=== PATIENT | female | born 1945 | race Caucasian/White ===

== ENCOUNTER → 2017-10-23 | Outpatient (CLI) | END | disposition home or self-care (01) ==

== ENCOUNTER 2018-09-11 10:17 | Inpatient (IN) | payer BC ==
[2018-09-09 18:04] VITALS: BMI 34.0
[~2018-09-11] VITALS: Ht 162.6 cm; Wt 89.6 kg
[2018-09-11] VITALS (29 sets, daily range): BP systolic 79–131; BP diastolic 28–77; PULSE 82–111; RESP 12–22; Ht 162.6 cm; Wt 89.6 kg
[~2018-09-11 10:17] MED LIST: ALBUMIN HUMAN 25% 100 ML INJ ONE; ALBUMIN HUMAN 5% 250 ML INJ ONE; CEFAZOLIN 1 GM INJ ONE; GLYCOPYRROLATE 0.4 MG INJ ONE; LIDOCAINE 2% (SDV) 5 ML INJ ONE; NEOSTIGMINE 10 MG INJ ONE; PROPOFOL 200 MG INJ ONE; ROCURONIUM 50 MG INJ ONE; SUCCINYLCHOLINE CHLORIDE 100 MG/5 ML SYG IV ONE
[2018-09-11] MEDS ORDERED: MIDAZOLAM 1 MG/ML 2 ML INJ ONE (10:38)
[2018-09-11] MEDS ORDERED: FENTAnyl 50 MCG/ML VIAL ONE ×2 (10:38→14:40)
[2018-09-11] MEDS ORDERED: LEVO50TA7 PO (10:42)
[2018-09-11] MEDS ORDERED: METOCLOPRAMIDE 10 MG INJ ONE (10:43)
--- NOTE | 2018-09-11 11:42 | PREAC ---
Date/Time of Note Date/Time of Note DATE: 09/11/18 TIME: 11:41 Anesthesia Eval and Record Evaluation Time Pre-Procedure Interview DATE: 09/11/18 TIME: 11:41 Age 73 Sex female NPO: 8 hrs Preoperative diagnosis ovarian CA Planned procedure abdominal hysterectomy Past Medical History Past Medical History: Includes Endo: Hypothyroid GI: Obesity Surgery & Anesthesia Issues No known issue Meds Anticoagulation: No Beta Sumi within 24 hr: No Reason Beta Sumi not given: Pt. not on B-Sumi Reported Medications Levothyroxine Sodium* (Levothyroxine Sodium*) 50 Mcg Tablet, 50 MCG PO BEFORE BREAKFAST, #30 TAB 09/11/18 Meds reviewed: Yes Allergies Coded Allergies: lidocaine (Verified Allergy, Intermediate, THROAT ITCHY, 09/11/18) PER PT & RELATIVE Allergies Reviewed: Yes Labs/Studies Labs Reviewed: Reviewed by anesthesiologist Result Diagram: 09/09/18 [id number] test: Negative Studies: ECG, CXR Pre-procedure Exam Airway: Adequate mouth opening, Adequate thyromental dist Mallampati: Mallampati III Teeth: Normal Lung: Normal Heart: Normal ASA Physical Status ASA physical status: 3 Emergency: None Planned Anesthetic General/MAC: ETT, A Line, CVP Planned Pain Management Epidural, Parenteral pain med, Other neuraxial med, Local by surgeon Pre-operative Attestations Prior to commencing anesthesia and surgery, the patient was re-evaluated, there was verification of: *The patient's identity *The results of appropriate recent lab work and preoperative vital signs *The above evaluation not changing prior to induction *Anesthetic plan, risk benefits, alternative and complications discussed with patient/family; questions answered; patient/family understands, accepts and wishes to proceed. KELSEY MALONEY MD Sep 11, 2018 11:42
--- NOTE | 2018-09-11 13:17 | HPN ---
Date/Time of Note Date/Time of Note DATE: 09/11/18 TIME: 13:17 Interval H&P Admission Note Pt. seen H&P reviewed: No system changes VIRGINIA COTE MD Sep 11, 2018 13:17
[2018-09-11] MEDS ORDERED: hydrALAzine 20 MG INJ ONE (14:55)
[2018-09-11] MEDS ORDERED: ROPIVACAINE 0.5 % 30 ML VIAL ONE (16:16)
[2018-09-11] MEDS ORDERED: morphine SULFATE/PF (10 MG/10 ML) INJ ONE (16:16)
[2018-09-11] MEDS ORDERED: PHENYLephrine (100 MCG/ML) 5ML SYG ONE ×2 (16:27→17:09)
[2018-09-11] MEDS ORDERED: ONDANSETRON 4 MG INJ IV PRN ×2 (17:00→17:30)
[2018-09-11] MEDS ORDERED: FENTAnyl 50 MCG/ML VIAL IV PRN ×2 (17:00)
[2018-09-11] MEDS ORDERED: ALBUMIN HUMAN 5% 250 ML IV PRN (17:00)
[2018-09-11] MEDS ORDERED: LABETALOL HCL 20MG INJ IV PRN (17:00)
[2018-09-11] MEDS ORDERED: IPRATROPIUM (NEB) 0.5 MG/2.5 ML AMP HHN PRN (17:00)
[2018-09-11] MEDS ORDERED: HYDROmorphONE 0.5 MG/0.5 ML SYG IV PRN ×2 (17:00)
[2018-09-11] MEDS ORDERED: MEPERIDINE 25 MG INJ IV PRN (17:00)
[2018-09-11] MEDS ORDERED: NALOXONE (0.4 MG/ML) INJ IV PRN (17:00)
[2018-09-11] MEDS ORDERED: MIDAZOLAM 1 MG/ML 2 ML INJ IV PRN (17:00)
[2018-09-11] MEDS ORDERED: ZOLPIDEM 5 MG TAB PO PRN (17:00)
[2018-09-11] MEDS ORDERED: hydrALAzine 20 MG INJ IV PRN (17:00)
[2018-09-11] MEDS ORDERED: DIPHENHYDRAMINE 50 MG INJ IV PRN ×3 (17:00→17:30)
[2018-09-11] MEDS ORDERED: HYDROmorphONE 1 MG/5 ML IV SYRINGE IV PRN ×3 (17:00)
[2018-09-11] MEDS ORDERED: LEVALBUTEROL (NEB) 1.25 MG/0.5 ML AMP HHN PRN (17:00)
[2018-09-11] MEDS ORDERED: LORAZEPAM 2 MG INJ IV PRN (17:00)
[2018-09-11] MEDS ORDERED: PHENYLephrine 10 MG INJ ONE (17:24)
[2018-09-11] MEDS ORDERED: HYDROCODONE/APAP (5/325) TAB PO PRN (17:30)
[2018-09-11] MEDS ORDERED: ACETAMINOPHEN 325 MG TAB PO PRN (17:30)
--- NOTE | 2018-09-11 17:42 | OPR ---
Date/Time of Note Date/Time of Note DATE: 09/11/18 TIME: 17:37 Operative Report Procedure Date: Sep 11, 2018 Preoperative Diagnosis Ovarian cancer, s/p neoadjuvant chemotherapy Postoperative Diagnosis Same, extensive disease Operation/Procedure Performed Exploratory laparotomy, omentectomy, right salpingo-oophrectomy, sub-optimal tumor debulking Surgeon see signature line Radio Frequency Technician ERAN Campos Anesthesia Type: general, epidural Estimated Blood Loss: other Transfusion none Specimen omentum, ovary, falciform ligament tumor, gastrocolic ligament. Grafts/Implants none Tubes/Drains [place] x 1 Complications none Pt Condition Post Procedure: stable Disposition: other Procedure Description Ascite, large desmoplastic omental cake at 25x10 cm. Tumor in gastorcolic ligament and falciform ligament. Confluent thick diaphram tumor. Large tumor burden in bladder peritoneum and recto-vaginal septum. Due to location, desmoplstic tumor, complete debulking is not feasible at this time. VIRGINIA COTE MD Sep 11, 2018 17:42
[2018-09-11] MEDS ORDERED: HYDROmorphONE 1 MG/5 ML IV SYRINGE IV ONE (18:06)
[2018-09-11] MEDS: ROPIVACAINE 0.2% 100 ML INJ EPI SCH (18:37)
--- NOTE | 2018-09-11 18:55 | OPR ---
DATE OF OPERATION: 09/11/2018 PREOPERATIVE DIAGNOSES: 1. Extensive ovarian cancer. 2. Status post neoadjuvant chemotherapy. POSTOPERATIVE DIAGNOSES: 1. Extensive ovarian cancer. 2. Status post neoadjuvant chemotherapy. 3. Extensive disease. PROCEDURES PERFORMED: 1. Exploratory laparotomy. 2. Omentectomy. 3. Right salpingo-oophorectomy. 4. Suboptimal tumor debulking. SURGEON: Ami Romero MD BAKESHOP CLEANER: ERAN Campos ANESTHESIA: General endotracheal and epidural. ESTIMATED BLOOD LOSS: About 400 mL. INTRAOPERATIVE FINDINGS: The patient has ascites approximately 3 liters. There is a large desmoplastic omental cake about 20 x 10 cm, stuck to the anterior abdominal wall as well as compressing on the transverse colon. There was extensive disease in the diaphragm, quite confluent and thick. There is a large tumor in the falciform ligament compressing the stomach. She has a prior history of cholecystectomy. There is some tumor plaque in the lesser sac behind the stomach. There was also tumor plaque in the spleen surface. Small bowel serosa is fairly spared. Ascending, transverse, descending colon are fairly unremarkable. Pelvic area has large bulky tumor in the bladder peritoneum, also large bulky tumor in the rectovaginal septum. There was tumor in the right ovary. Left ovary was difficult to identify. Due to extent of disease and the desmoplastic nature of the tumor, the debulking outcome was suboptimal. There is still residual disease in the pelvic. There is confluent disease in the diaphragm. There is disease on the splenic surface and also in the lesser sac behind the stomach. PREOPERATIVE INDICATION: This is a 73-year-old white female who was diagnosed with ovarian cancer in 11/2017. Apparently, she has a lot of disease in the abdomen and also pleural effusion. She started treatment with neoadjuvant chemotherapy by Dr. Acosta. Apparently, she finished treatment in 05/22/2018. Pretreatment CA-125 was 718. Posttreatment went down to 57. [employer] oncology got involved after neoadjuvant chemotherapy. She originally was sent to [facility] for surgical evaluation in 06/30/2018. Due to insurance capitation reason to [facility], she was redirected to me. I saw the patient in the office first time about 3 weeks ago. She was recently evaluated by her medical oncologist on 08/15/2018. Her CA-125 is rising and back up to 300. She has another CT scan preoperatively that showed increase in disease with tumor burden. I have discussed with Dr. Acosta personally and to resume neoadjuvant chemotherapy at the sixth cycle is not the best option at this time. The plan is to attempt tumor debulking although due to the timing and the rapid recurrence of disease, debulking may not be optimal. DESCRIPTION OF PROCEDURE: With that in mind, the patient was taken to the OR after adequate bowel prep and also adequate general and epidural anesthesia, she was placed in a lithotomy position, prepped and draped in usual sterile fashion. There is ascites in the abdomen and the omental cake is palpable in the anterior abdominal wall. At this time, vertical incision extends from suprapubic to the umbilicus. Incision was carried down to the level of fascia. Fascia was entered. We initially encountered this thick omental cake which was stuck to the fascia. It was difficult finding the proper surgical plane in the lower anterior abdomen. At this time, I made an incision above the umbilicus and was able to carefully enter the abdominal cavity and find surgical plane around the omental cake laterally. Once good plane was opened, I was able to evacuate the ascites. Approximately 3 liters of ascites were evacuated and this leads to better visualization. Next, I then proceeded to carefully and slowly separate omental cake from anterior abdominal wall and part of tumor involving the posterior sheath and this was resected without difficulty and the rectus muscle was left intact. At this time and once it cleared from the pelvic area, I mobilized all the way up to the upper abdomen. The patient had prior history of open cholecystectomy and the omentum was then from a large bulky falciform ligament tumor. At this time with the omental cake delineated from the abdominal wall, I also assessed the pelvis. Disease distribution was more noticed per above. At this time, it becomes quite clear that due to the desmoplastic nature of the disease and the bulky disease, optimal debulking is not feasible at this time. My goal will be to remove the primary source hopefully, both ovaries and omental cake and bulky disease are to be removed but R0 debulking outcome is not feasible at this time. At this time, I then proceeded to separate the large omental cake from the hepatic flexure and this was without difficulty. As we reached the mid transverse colon, I had slowly teased off the colon from the omental cake and this was able to slowly separate without traumatizing them. Omental cake was completely from the transverse colon to the splenic flexure and I was able to enter the lesser sac. At this time, the entire omental cake was then mobilized all the way to the tail of omentum and this was completely removed and there is ____ block of the thick tumor approximately 25 x 10 cm. This was sent to pathology for evaluation. At this time, I further delineated gastrocolic ligament and this was taken of the greater curvature of the stomach and reflected toward the spleen. The gastrocolic was removed. The patient does have some surface disease in the spleen, but not quite bulky. Upon further inspection of the stomach and the lesser sac, there is actually bulky tumor right behind the stomach. This is about 5 to 6 cm. Also, the patient has a confluent diaphragm tumor on the right side and it is almost like 1 to 2 cm thick involving the entire diaphragm. At this time, there was a large bulky falciform ligament tumor and I proceeded to mobilize it from the anterior abdominal wall then off the stomach and off the attachment to the liver. This was removed carefully without causing vascular injury. This was labeled as falciform ligament tumor. There is no trauma to the stomach and the bulky omental cake was removed. At this time, I then started to pay attention to pelvic area. The patient placed in Trendelenburg position. Bowel was mobilized off of the pelvis. Again, there was bulky disease on the cul-de-sac, bladder peritoneum and also rectosigmoid colon mesentery in the order of 4 to 5 cm and firm and desmoplastic. At this time, I was able to palpate the right ovary trapped in the right ovarian fossa. The left ovary was difficult to identify. At this time, I anchored the round ligament on the right side. The retroperitoneal space on the right was opened to the pericolic gutter. Perirectal space was opened. Avascular space was opened. Right IP ligament was doubly cut and suture ligated. At this time, I mobilized the ovary from the ovarian fossa on the right side and completely mobilized while the uteroovarian was clamped, cut, suture ligated. At this time, right adnexa was and sent to pathology for evaluation. Next, I then proceeded to attempt to remove the left ovary. The left round ligament was anchored in a similar fashion. The retroperitoneal space opened. The IP ligament was doubly cut and suture ligated. We proceeded to isolate the left ovary. Unfortunately, this left ovary was completely confluent with the uterus and the pelvic tumor is difficult to delineate. At this time, I performed a pelvic exam. The patient does have big bulky rectovaginal septum mass pressing down posterior to the uterus. Again due to the desmoplastic nature of the tumor if I were to involve this tumor, the patient may end up with diverting colostomy due to low rectal anastomosis. I do not think under the extent of bulky disease that this is warranted; therefore, resecting the pelvic tumor with hysterectomy is not performed. At this time, I then proceeded to irrigate the abdomen and pelvis and there is no active bleeding. All the pedicles are hemostatic. Next, instrument and lap counts were correct. I placed a [place] drain into pelvic area prior to right lower quadrant anchoring to the skin. Next, I then proceeded to close the fascia using looped PDS in a mass having closure fashion. Subcutaneous tissue was irrigated. Skin was approximated using stainless steel staple. At the end of the case, urine was clear and estimated blood loss was about 400 mL. The patient was then extubated and transferred to recovery room in stable condition. Dictated By: AMI GUERRA/ROSARIO Conf#: [id number] DID#: [id number] CC: JESSIE AGUILA MD;*EndCC* MTDD
[2018-09-11] MEDS: D5-NS + KCL 20 MEQ 1,000 ML IV SCH (20:07)
[2018-09-11] MEDS: FAMOTIDINE 20 MG INJ IV SCH (20:46)
[2018-09-12] VITALS (23 sets, daily range): BP systolic 101–134; BP diastolic 50–73; PULSE 90–111; RESP 12–23
[2018-09-12] MEDS: ROPIVACAINE 0.2% 100 ML INJ EPI SCH (03:17)
[2018-09-12] MEDS: D5-NS + KCL 20 MEQ 1,000 ML IV SCH ×3 (03:17→20:02)
--- NOTE | 2018-09-12 08:05 | PAC ---
Date/Time of Note Date/Time of Note DATE: 09/12/18 TIME: 08:05 Post-Anesthesia Notes Post-Anesthesia Note Last documented vital signs Vital Signs Date Temp Pulse Resp B/P (MAP) Pulse Ox O2 O2 Flow FiO2 Time Delivery Rate 09/12/18 96 16 110/61 98 Nasal 2.0 06:00 (77) Cannula 09/12/18 98.4 04:00 Activity: WNL Respiratory function: WNL Cardiovascular function: WNL Mental status: Baseline Pain reasonably controlled: Yes Hydration appropriate: Yes Nausea/Vomiting absent: Yes KELSEY MALONEY MD Sep 12, 2018 08:05
[2018-09-12] MEDS: FAMOTIDINE 20 MG INJ IV SCH ×2 (08:27→21:08)
[2018-09-12] MEDS: HYDROCODONE/APAP (10/325) TAB PO PRN ×2 (14:46→21:35)
[2018-09-12] MEDS ORDERED: HYDROmorphONE 0.2 MG/ML PCA IV SCH (18:30)
--- NOTE | 2018-09-12 18:37 | PN ---
Date/Time of Note Date/Time of Note DATE: 09/12/18 TIME: 18:35 Assessment/Plan VTE Prophylaxis Risk score (from Ns)>0 risk: 15 SCD applied (from [facility] [place]): Yes SCD contraindicated: other Pharmacological prophylaxis: LMWH Lines/Catheters IV [facility]ter Type (from [facility]): Central Line Central line insert date: Sep 11, 2018 Central line still needed: Yes Urinary Cath still in place: Yes Reason Cath still needed: other (indicate) Assessment/Plan Hospital Course POD #1 Assessment/Plan Doppler of RLE, PICC line insertion, will remove central line tomorrow. NG d/c. transfer to floor Result Diagram: 09/12/18 0340 09/12/18 0340 Results 24hrs Laboratory Tests Test 09/12/18 03:40 09/12/18 04:55 White Blood Count 12.0 #H Red Blood Count 2.83 L Hemoglobin 9.4 L Hematocrit 28.4 L Mean Corpuscular Volume 100.4 Mean Corpuscular Hemoglobin 33.2 H Mean Corpuscular Hemoglobin Concent 33.1 Red Cell Distribution Width 11.3 L Platelet Count 300 Mean Platelet Volume 9.9 Immature Granulocytes % 0.800 H Neutrophils % 85.4 H Lymphocytes % 6.8 L Monocytes % 6.8 Eosinophils % 0.0 Basophils % 0.2 Nucleated Red Blood Cells % 0.0 Immature Granulocytes # 0.090 H Neutrophils # 10.3 H Lymphocytes # 0.8 Monocytes # 0.8 Eosinophils # 0.0 Basophils # 0.0 Nucleated Red Blood Cells # 0.0 Sodium Level 141 Potassium Level 4.8 Chloride Level 110 Carbon Dioxide Level 23 Anion Gap 8 Blood Urea Nitrogen 14 Creatinine 0.80 Est Glomerular Filtrat Rate mL/min Glucose Level 213 Calcium Level 9.3 Total Bilirubin 0.3 Direct Bilirubin 0.00 Indirect Bilirubin 0.3 Aspartate Amino Transf (AST/SGOT) 19 Alanine Aminotransferase (ALT/SGPT) 21 Alkaline Phosphatase 30 L Total Protein 5.2 L Albumin 3.1 L Globulin 2.10 Albumin/Globulin Ratio 1.47 Lab Scanned Report REFERENCE LAB Subjective 24 Hr Interval Summary Free Text/Dictation c/o pain epidural out Exam/Review of Systems Exam Vitals Vital Signs Date Temp Pulse Resp B/P (MAP) Pulse Ox O2 O2 Flow FiO2 Time Delivery Rate 09/12/18 109 23 133/61 95 17:00 (85) 09/12/18 98.6 Room Air 16:00 09/12/18 2.0 12:00 Intake and Output 09/11/18 09/11/18 09/12/18 1515:00 23:00 07:00 IntakeIntake Total 4575 ml 1080 ml OutputOutput Total 1485 ml 555 ml BalanceBalance 3090 ml 525 ml Gastrointestinal: soft Results Results 24hrs Laboratory Tests Test 09/12/18 03:40 09/12/18 04:55 White Blood Count 12.0 #H Red Blood Count 2.83 L Hemoglobin 9.4 L Hematocrit 28.4 L Mean Corpuscular Volume 100.4 Mean Corpuscular Hemoglobin 33.2 H Mean Corpuscular Hemoglobin Concent 33.1 Red Cell Distribution Width 11.3 L Platelet Count 300 Mean Platelet Volume 9.9 Immature Granulocytes % 0.800 H Neutrophils % 85.4 H Lymphocytes % 6.8 L Monocytes % 6.8 Eosinophils % 0.0 Basophils % 0.2 Nucleated Red Blood Cells % 0.0 Immature Granulocytes # 0.090 H Neutrophils # 10.3 H Lymphocytes # 0.8 Monocytes # 0.8 Eosinophils # 0.0 Basophils # 0.0 Nucleated Red Blood Cells # 0.0 Sodium Level 141 Potassium Level 4.8 Chloride Level 110 Carbon Dioxide Level 23 Anion Gap 8 Blood Urea Nitrogen 14 Creatinine 0.80 Est Glomerular Filtrat Rate mL/min Glucose Level 213 Calcium Level 9.3 Total Bilirubin 0.3 Direct Bilirubin 0.00 Indirect Bilirubin 0.3 Aspartate Amino Transf (AST/SGOT) 19 Alanine Aminotransferase (ALT/SGPT) 21 Alkaline Phosphatase 30 L Total Protein 5.2 L Albumin 3.1 L Globulin 2.10 Albumin/Globulin Ratio 1.47 Lab Scanned Report REFERENCE LAB Medications Medication Current Medications Acetaminophen/ Hydrocodone Bitart ([place] (5/325)) 1 tab Q6H PRN PO PAIN LEVEL 6-10 Last administered on 09/12/18at 12:25; Admin Dose 1 TAB; Start 09/11/18 at 17:30 Acetaminophen/ Hydrocodone Bitart ([place] (10/325)) 1 tab Q6H PRN PO PAIN Last administered on 09/12/18at 14:46; Admin Dose 1 TAB; Start 09/11/18 at 17:30 Acetaminophen (Tylenol Tab) 650 mg Q6H PRN PO MILD PAIN(1-3)OR ELEVATED TEMP; Start 09/11/18 at 17:30 Diphenhydramine HCl (Benadryl) 25 mg Q6H PRN IV ITCHING; Start 09/11/18 at 17:30 Ondansetron HCl (Zofran Inj) 4 mg Q6H PRN IV NAUSEA AND/OR VOMITING; Start 09/11/18 at 17:30 Famotidine (Pepcid Iv) 10 mg BID IV Last administered on 09/12/18at 08:27; Admin Dose 10 MG; Start 09/11/18 at 21:00 Potassium Chloride/Dextrose/ Sod Cl 1,000 ml @ 125 mls/hr Q8H IV Last administered on 09/12/18at 11:08; Admin Dose 125 MLS/HR; Start 09/11/18 at 17:28 Ropivacaine (Naropin 0.2% 100 ml) 100 ml DAILY EPI Last administered on 09/12/18at 03:17; Admin Dose 100 ML; Start 09/11/18 at 18:00 Hydromorphone HCl (Dilaudid) 0.2 mg Q2H PRN IV .PAIN 1-5; Start 09/11/18 at 17:00 Hydromorphone HCl (Dilaudid) 0.4 mg Q2H PRN IV .PAIN 6-10 Last administered on 09/12/18at 17:07; Admin Dose 0.4 MG; Start 09/11/18 at 17:00 Diphenhydramine HCl (Benadryl) 25 mg Q4H PRN IV .PRURITUS; Start 09/11/18 at 17:00 Ondansetron HCl (Zofran Inj) 4 mg Q6H PRN IV .NAUSEA/VOMITING; Start 09/11/18 at 17:00 Zolpidem Tartrate (Ambien) 5 mg HS MAY REPEAT X 1 PRN PO .INSOMNIA; Start 09/11/18 at 17:00 Naloxone HCl (Narcan) 0.2 mg Q2M PRN IV .RESP RATE; Start 09/11/18 at 17:00 Miscellaneous Information (* Miscellaneous Pharmacy Order) DURAMORPH: 3.5MG EP IDU... GIVEN NEURAXIAL XX ; Start 09/11/18 at 17:00 VIRGINIA COTE MD Sep 12, 2018 18:37
[2018-09-12] MEDS: HYDROmorphONE 0.2 MG/ML PCA IV SCH (20:01)
[2018-09-13 02:30] VITALS: BP 132/66; PULSE 119; RESP 18
[2018-09-13] MEDS: D5-NS + KCL 20 MEQ 1,000 ML IV SCH ×2 (05:44→11:08)
[2018-09-13] MEDS: FAMOTIDINE 20 MG INJ IV SCH ×2 (08:17→20:29)
[2018-09-13 08:27] VITALS: BP 115/67; PULSE 102; RESP 20
--- NOTE | 2018-09-13 10:30 | PN ---
Date/Time of Note Date/Time of Note DATE: 09/13/18 TIME: 10:28 Assessment/Plan VTE Prophylaxis Risk score (from Ns)>0 risk: 18 SCD applied (from Ns): Yes SCD contraindicated: other Pharmacological prophylaxis: LMWH [facility] Central line still needed: Yes Urinary Cath still in place: Yes Reason Cath still needed: other (indicate) Assessment/Plan Hospital Course POD #2 Assessment/Plan PICC line today, d/c central line. RLE doppler to r/o DVT. Consult IM and Med Onc. Result Diagram: 09/13/1844709/13/18447 Results 24hrs Laboratory Tests Test 09/13/18 04:48 White Blood Count 13.2 H Red Blood Count 2.72 L Hemoglobin 9.0 L Hematocrit 26.9 L Mean Corpuscular Volume 98.9 Mean Corpuscular Hemoglobin 33.1 H Mean Corpuscular Hemoglobin Concent 33.5 Red Cell Distribution Width 11.1 L Platelet Count 282 Mean Platelet Volume 9.9 Immature Granulocytes % 1.200 H Neutrophils % 78.2 H Lymphocytes % 12.0 L Monocytes % 7.1 Eosinophils % 1.3 Basophils % 0.2 Nucleated Red Blood Cells % 0.0 Immature Granulocytes # 0.160 H Neutrophils # 10.3 H Lymphocytes # 1.6 Monocytes # 0.9 Eosinophils # 0.2 Basophils # 0.0 Nucleated Red Blood Cells # 0.0 Sodium Level 135 Potassium Level 4.1 Chloride Level 103 Carbon Dioxide Level 25 Anion Gap 7 Blood Urea Nitrogen 10 Creatinine 0.73 Est Glomerular Filtrat Rate mL/min Glucose Level 132 # Calcium Level 8.3 L Subjective 24 Hr Interval Summary Free Text/Dictation Pain better Exam/Review of Systems Exam Vitals Vital Signs Date Temp Pulse Resp B/P (MAP) Pulse Ox O2 O2 Flow FiO2 Time Delivery Rate 09/13/18 98.0 102 20 115/67 95 Nasal 2.0 08:27 (83) Cannula Intake and Output 09/12/18 09/12/18 09/13/18 1515:00 23:00 07:00 IntakeIntake Total 1150 ml 850 ml 645 ml OutputOutput Total 1210 ml 415 ml 1380 ml BalanceBalance -60 ml 435 ml -735 ml Gastrointestinal: soft Results Results 24hrs Laboratory Tests Test 09/13/18 04:48 White Blood Count 13.2 H Red Blood Count 2.72 L Hemoglobin 9.0 L Hematocrit 26.9 L Mean Corpuscular Volume 98.9 Mean Corpuscular Hemoglobin 33.1 H Mean Corpuscular Hemoglobin Concent 33.5 Red Cell Distribution Width 11.1 L Platelet Count 282 Mean Platelet Volume 9.9 Immature Granulocytes % 1.200 H Neutrophils % 78.2 H Lymphocytes % 12.0 L Monocytes % 7.1 Eosinophils % 1.3 Basophils % 0.2 Nucleated Red Blood Cells % 0.0 Immature Granulocytes # 0.160 H Neutrophils # 10.3 H Lymphocytes # 1.6 Monocytes # 0.9 Eosinophils # 0.2 Basophils # 0.0 Nucleated Red Blood Cells # 0.0 Sodium Level 135 Potassium Level 4.1 Chloride Level 103 Carbon Dioxide Level 25 Anion Gap 7 Blood Urea Nitrogen 10 Creatinine 0.73 Est Glomerular Filtrat Rate mL/min Glucose Level 132 # Calcium Level 8.3 L Medications Medication Current Medications Acetaminophen/ Hydrocodone Bitart ([place] (5/325)) 1 tab Q6H PRN PO PAIN LEVEL 6-10 Last administered on 09/12/18at 12:25; Admin Dose 1 TAB; Start 09/11/18 at 17:30 Acetaminophen/ Hydrocodone Bitart ([place] (10/325)) 1 tab Q6H PRN PO PAIN Last administered on 09/12/18at 21:35; Admin Dose 1 TAB; Start 09/11/18 at 17:30 Acetaminophen (Tylenol Tab) 650 mg Q6H PRN PO MILD PAIN(1-3)OR ELEVATED TEMP; Start 09/11/18 at 17:30 Diphenhydramine HCl (Benadryl) 25 mg Q6H PRN IV ITCHING; Start 09/11/18 at 17:30 Ondansetron HCl (Zofran Inj) 4 mg Q6H PRN IV NAUSEA AND/OR VOMITING Last administered on 09/13/18at 08:17; Admin Dose 4 MG; Start 09/11/18 at 17:30 Famotidine (Pepcid Iv) 10 mg BID IV Last administered on 09/13/18 08:17; Admin Dose 10 MG; Start 09/11/18 at 21:00 Potassium Chloride/Dextrose/ Sod Cl 1,000 ml @ 75 mls/hr [id number] IV Last administered on 09/12/18at 20:02; Admin Dose 75 MLS/HR; Start 09/11/18 at 17:28 Ropivacaine (Naropin 0.2% 100 ml) 100 ml DAILY EPI Last administered on 09/12/18 at 03:17; Admin Dose 100 ML; Start 09/11/18 at 18:00 Hydromorphone HCl (Dilaudid) 0.2 mg Q2H PRN IV .PAIN 1-5; Start 09/11/18 at 17:00 Hydromorphone HCl (Dilaudid) 0.4 mg Q2H PRN IV .PAIN 6-10 Last administered on 09/12/18at 17:07; Admin Dose 0.4 MG; Start 09/11/18 at 17:00 Diphenhydramine HCl (Benadryl) 25 mg Q4H PRN IV .PRURITUS; Start 09/11/18 at 17:00 Ondansetron HCl (Zofran Inj) 4 mg Q6H PRN IV .NAUSEA/VOMITING; Start 09/11/18 at 17:00 Zolpidem Tartrate (Ambien) 5 mg HS MAY REPEAT X 1 PRN PO .INSOMNIA; Start 09/11/18 at 17:00 Naloxone HCl (Narcan) 0.2 mg Q2M PRN IV .RESP RATE; Start 09/11/18 at 17:00 Miscellaneous Information (* Miscellaneous Pharmacy Order) DURAMORPH: 3.5MG EPIDU... GIVEN NEURAXIAL XX ; Start 09/11/18 at 17:00 Hydromorphone HCl (Dilaudid [employer] SAL[employer] MANAGER) 0 MG/HR CONTINUOUS RATE 0.... Q4PCA IV Last administered on 09/12/18at 20:01; Admin Dose 0.2 MG; Start 09/12/18 at 20:00 VIRGINIA COTE MD Sep 13, 2018 10:30
[2018-09-13] MEDS: ONDANSETRON 4 MG INJ IV PRN (14:22)
[2018-09-13 14:29] VITALS: BP 139/80; PULSE 104; RESP 18
--- NOTE | 2018-09-13 16:00 | CONS ---
Assessment/Plan Assessment/Plan Assessment/Plan (Daily) 73 yo woman no major PMH presents after ovarian debulking surgery #Postoperative ileus - Patient is at high risk of ileus after intraperitoneal surgery on high doses of opiate analgesics. - Will start stimulant and osmotic oral laxatives. - If no improvement or if she becomes unable to take PO, will advance to [place] enemas and stimulants. #Postoperative pain - Agree with opioid analgesia as ordered by surgery. - Start PT/OT as soon as possible when cleared to ambulate by surgery. #Hypothyroidism - Patient should continue daily thyroid replacement - If unable to tolerate PO, can switch to 25 mg IV daily. #Anemia - Transfuse pRBCs for symptomatic anemia or if Hgb drops to <7. #DVT prophylaxis - In case of prolonged immobility, consider prophylactic enoxaparin 40mg daily when okay from surgical perspective. Patient is at high risk of venous thromboembolism. Thank you for the consult. We will continue to follow. Consultation Date/Type/Reason Admit Date/Time Sep 11, 2018 at 10:17 Date of Consultation: Sep 13, 2018 Type of Consult Internal Medicine Reason for Consultation Postoperative management Requesting Provider: VIRGINIA COTE MD Date/Time of Note DATE: 09/13/18 TIME: 15:46 Hx of Present Illness Ms. Seth is a 73 yo woman with ovarian cancer admitted after abdominal debulking surgery. She was diagnosed with this cancer in November 2017. She follows Dr. Acosta who did neoadjuvant chemotherapy which she completed in May 2018. Unfortunately due to insurance reasons she was unable to get surgery right away. She was admitted September [address] Cote who did exploratory laparotomy, omentectomy, right salpingo-oophorectomy, and tumor debulking. Postoperatively she developed R leg swelling which now has resolved. She did have a venous duplex, the results of which appear to be pending; but the swelling resolved. She has also had ileus with no bowel movement or gas passed since surgery. Yesterday after starting soft diet she developed vomiting. Most recent episode of vomiting was 45 minutes ago, dark brown. 12 point review of systems done; negative except per HPI Past Medical History Hypothyroidism on levothyroxine Osteoarthritis on meloxicam Home Meds Reported Medications Levothyroxine Sodium* (Levothyroxine Sodium*) 50 Mcg Tablet, 50 MCG PO BEFORE BREAKFAST, #30 TAB 09/11/18 Medications Current Medications Acetaminophen/ Hydrocodone Bitart ([place] (5/325)) 1 tab Q6H PRN PO PAIN LEVEL 6-10 Last administered on 09/12/18 12:25; Admin Dose 1 TAB; Start 09/11/18 at 17:30 Acetaminophen/ Hydrocodone Bitart ([place] (10/325)) 1 tab Q6H PRN PO PAIN Last administered on 09/12/18 21:35; Admin Dose 1 TAB; Start 09/11/18 at 17:30 Acetaminophen (Tylenol Tab) 650 mg Q6H PRN PO MILD PAIN(1-3)OR ELEVATED TEMP; Start 09/11/18 at 17:30 Famotidine (Pepcid Iv) 10 mg BID IV Last administered on 09/13/18 08:17; Admin Dose 10 MG; Start 09/11/18 at 21:00 Potassium Chloride/Dextrose/ Sod Cl 1,000 ml @ 75 mls/hr [id number] IV Last adm inistered on 09/13/18at 11:08; Admin Dose 75 MLS/HR; Start 09/11/18 at 17:28 Hydromorphone HCl (Dilaudid) 0.2 mg Q2H PRN IV .PAIN 1-5; Start 09/11/18 at 17:00 Hydromorphone HCl (Dilaudid) 0.4 mg Q2H PRN IV .PAIN 6-10 Last administered on 09/12/18 17:07; Admin Dose 0.4 MG; Start 09/11/18 at 17:00 Diphenhydramine HCl (Benadryl) 25 mg Q4H PRN IV .PRURITUS; Start 09/11/18 at 17:00 Ondansetron HCl (Zofran Inj) 4 mg Q6H PRN IV .NAUSEA/VOMITING Last administered on 09/13/18 14:22; Admin Dose 4 MG; Start 09/11/18 at 17:00 Zolpidem Tartrate (Ambien) 5 mg HS MAY REPEAT X 1 PRN PO .INSOMNIA; Start 09/11/18 at 17:00 Naloxone HCl (Narcan) 0.2 mg Q2M PRN IV .RESP RATE; Start 09/11/18 at 17:00 Miscellaneous Information (* Miscellaneous Pharmacy Order) DURAMORPH: 3.5MG EPIDU... GIVEN NEURAXIAL XX ; Start 09/11/18 at 17:00 Hydromorphone HCl (Dilaudid ENVIRONMENTAL PROTECTION GEOLOGIST) 0 MG/HR CONTINUOUS RATE 0.... Q4PCA IV Last administered on 09/12/18at 20:01; Admin Dose 0.2 MG; Start 09/12/18 at 20:00 Allergies: Coded Allergies: lidocaine (Verified Allergy, Intermediate, THROAT ITCHY, 09/11/18) PER PT & RELATIVE Past Surgical History Cholecystectomy Family History Significant Family History: other (Mother and sister both of unknown cancer. ) Social History Alcohol Use: rarely Smoking Status: Never smoker Drug Use: none Exam/Review of Systems Exam Vitals Vital Signs Date Temp Pulse Resp B/P (MAP) Pulse Ox O2 O2 Flow FiO2 Time Delivery Rate 09/13/18 97.5 104 18 139/80 93 Nasal 14:29 (99) Cannula 09/13/18 2.0 08:27 Intake and Output 09/12/18 09/12/18 09/13/18 1414:59 22:59 06:59 IntakeIntake Total 1150 ml 975 ml 645 ml OutputOutput Total 1270 ml 415 ml 1380 ml BalanceBalance -120 ml 560 ml -735 ml Exam Gen: Obese woman lying in bed, uncomfortable appearing. Eyes: PERRL, no icterus HEENT: Dry mucous membranes, clear oropharynx Neck: R neck IJ line in place, no lymphadenopathy Card: Regular rate and rhythm, no murmurs Pulm: Clear to auscultation bilaterally Abd: Absent bowel sounds. Midline surgical dressing clean/dry/intact. RLQ MARQUEZ drain with scant serosanguineous output. Nontender to light palpation throughout. Ext: R>L knee nodularity and arthritis. Otherwise no edema. Skin: warm, dry, well perfused. Results Result Diagram: 09/13/188 09/13/18447 Results 24hrs Laboratory Tests Test 09/13/18 04:48 White Blood Count 13.2 H Red Blood Count 2.72 L Hemoglobin 9.0 L Hematocrit 26.9 L Mean Corpuscular Volume 98.9 Mean Corpuscular Hemoglobin 33.1 H Mean Corpuscular Hemoglobin Concent 33.5 Red Cell Distribution Width 11.1 L Platelet Count 282 Mean Platelet Volume 9.9 Immature Granulocytes % 1.200 H Neutrophils % 78.2 H Lymphocytes % 12.0 L Monocytes % 7.1 Eosinophils % 1.3 Basophils % 0.2 Nucleated Red Blood Cells % 0.0 Immature Granulocytes # 0.160 H Neutrophils # 10.3 H Lymphocytes # 1.6 Monocytes # 0.9 Eosinophils # 0.2 Basophils # 0.0 Nucleated Red Blood Cells # 0.0 Sodium Level 135 Potassium Level 4.1 Chloride Level 103 Carbon Dioxide Level 25 Anion Gap 7 Blood Urea Nitrogen 10 Creatinine 0.73 Est Glomerular Filtrat Rate mL/min Glucose Level 132 # Calcium Level 8.3 L Medications Medication Current Medications Acetaminophen/ Hydrocodone Bitart ([place] (5/325)) 1 tab Q6H PRN PO PAIN LEVEL 6-10 Last administered on 09/12/18at 12:25; Admin Dose 1 TAB; Start 09/11/18 at 17:30 Acetaminophen/ Hydrocodone Bitart ([place] (10/325)) 1 tab Q6H PRN PO PAIN Last administered on 09/12/18 21:35; Admin Dose 1 TAB; Start 09/11/18 at 17:30 Acetaminophen (Tylenol Tab) 650 mg Q6H PRN PO MILD PAIN(1-3)OR ELEVATED TEMP; Start 09/11/18 at 17:30 Famotidine (Pepcid Iv) 10 mg BID IV Last administered on 09/13/18at 08:17; Admin Dose 10 MG; Start 09/11/18 at 21:00 Potassium Chloride/Dextrose/ Sod Cl 1,000 ml @ 75 mls/hr [id number] IV Last administered on 09/13/18at 11:08; Admin Dose 75 MLS/HR; Start 09/11/18 at 17:28 Hydromorphone HCl (Dilaudid) 0.2 mg Q2H PRN IV .PAIN 1-5; Start 09/11/18 at 17:00 Hydromorphone HCl (Dilaudid) 0.4 mg Q2H PRN IV .PAIN 6-10 Last administered on 09/12/18at 17:07; Admin Dose 0.4 MG; Start 09/11/18 at 17:00 Diphenhydramine HCl (Benadryl) 25 mg Q4H PRN IV .PRURITUS; Start 09/11/18 at 17:00 Ondansetron HCl (Zofran Inj) 4 mg Q6H PRN IV .NAUSEA/VOMITING Last administered on 09/13/18at 14:22; Admin Dose 4 MG; Start 09/11/18 at 17:00 Zolpidem Tartrate (Ambien) 5 mg HS MAY REPEAT X 1 PRN PO .INSOMNIA; Start 09/11/18 at 17:00 Naloxone HCl (Narcan) 0.2 mg Q2M PRN IV .RESP RATE; Start 09/11/18 at 17:00 Miscellaneous Information (* Miscellaneous Pharmacy Order) DURAMORPH: 3.5MG EPIDU... GIVEN NEURAXIAL XX ; Start 09/11/18 at 17:00 Hydromorphone HCl (Dilaudid ENVIRONMENTAL PROTECTION GEOLOGIST) 0 MG/HR CONTINUOUS RATE 0.... Q4PCA IV Last administered on 09/12/18at 20:01; Admin Dose 0.2 MG; Start 09/12/18 at 20:00 LUCINDA PANDYA MD Sep 13, 2018 15:56
[2018-09-13 19:54] VITALS: BP 125/81; PULSE 102; RESP 18
[2018-09-13] MEDS: SENNA TAB PO SCH (20:29)
[2018-09-13] MEDS ORDERED: NA PHOSPHATE/BIPHOS 133 ML ENEMA PR ONE (21:30)
[2018-09-13] MEDS ORDERED: DIPHENHYDRAMINE 50 MG INJ IV PRN (21:30)
[2018-09-13] MEDS ORDERED: NA PHOSPHATE/BIPHOS 133 ML ENEMA PR PRN (22:00)
[2018-09-14] MEDS: HYDROmorphONE 0.2 MG/ML PCA IV SCH (01:19)
[2018-09-14 02:00] VITALS: BP 128/75; PULSE 111; RESP 18; RESP 20
[2018-09-14] MEDS ORDERED: METOCLOPRAMIDE 10 MG INJ IV ONE (02:00)
[2018-09-14] MEDS: D5-NS + KCL 20 MEQ 1,000 ML IV SCH ×3 (03:50→20:22)
[2018-09-14] MEDS ORDERED: LORAZEPAM 2 MG INJ IV ONE (06:30)
[2018-09-14] MEDS: LEVOTHYROXINE 50 MCG TAB PO SCH (06:59)
[2018-09-14 08:01] VITALS: BP 111/76; PULSE 105; RESP 18
[2018-09-14] MEDS: POLYETHYLENE GLYCOL 17 GM PACKET PO SCH (09:00)
[2018-09-14] MEDS: SENNA TAB PO SCH ×2 (09:00→21:00)
[2018-09-14] MEDS ORDERED: MAGNESIUM SULFATE 2 GM/50 ML 50 ML IVPB ONE (09:30)
[2018-09-14] MEDS ORDERED: BISACODYL 10 MG SUPP PR PRN (11:00)
--- NOTE | 2018-09-14 12:20 | PN ---
Date/Time of Note Date/Time of Note DATE: 09/14/18 TIME: 12:18 Assessment/Plan VTE Prophylaxis Risk score (from Nsg)>0 risk: 6 SCD applied (from Nsg): Yes Pharmacological prophylaxis: LMWH Lines/Catheters IV Catheter Type (from Nrs): PICC Line Central line insert date: Sep 18, 2018 Central line still needed: No Urinary Cath still in place: No Assessment/Plan Hospital Course POD #3 Assessment/Plan NG drain lots, KUB ileus, PICC line today. D/C central line. Pain control Result Diagram: 09/14/1844809/14/18448 Results 24hrs Laboratory Tests Test 09/14/18 04:49 White Blood Count 13.3 H Red Blood Count 3.37 #L Hemoglobin 10.9 #L Hematocrit 32.5 #L Mean Corpuscular Volume 96.4 Mean Corpuscular Hemoglobin 32.3 Mean Corpuscular Hemoglobin Concent 33.5 Red Cell Distribution Width 10.9 L Platelet Count 399 # Mean Platelet Volume 10.1 Immature Granulocytes % 1.000 H Neutrophils % 80.6 H Lymphocytes % 10.2 L Monocytes % 7.7 Eosinophils % 0.2 Basophils % 0.3 Nucleated Red Blood Cells % 0.0 Immature Granulocytes # 0.130 H Neutrophils # 10.7 H Lymphocytes # 1.4 Monocytes # 1.0 H Eosinophils # 0.0 Basophils # 0.0 Nucleated Red Blood Cells # 0.0 Sodium Level 138 Potassium Level 3.8 Chloride Level 101 Carbon Dioxide Level 25 Anion Gap 12 Blood Urea Nitrogen 12 Creatinine 0.62 Est Glomerular Filtrat Rate mL/min Glucose Level 156 Calcium Level 8.9 Magnesium Level 1.5 L Total Bilirubin 0.5 Direct Bilirubin 0.00 Indirect Bilirubin 0.5 Aspartate Amino Transf (AST/SGOT) 30 Alanine Aminotransferase (ALT/SGPT) 21 Alkaline Phosphatase 60 Total Protein 5.8 L Albumin 3.0 L Globulin 2.80 Albumin/Globulin Ratio 1.07 Subjective 24 Hr Interval Summary Free Text/Dictation Pain control issues, Exam/Review of Systems Exam Vitals Vital Signs Date Temp Pulse Resp B/P (MAP) Pulse Ox O2 O2 Flow FiO2 Time Delivery Rate 09/14/18 17 09:00 09/14/18 97.3 105 111/76 93 Nasal 08:01 (88) Cannula 09/13/18 2.0 08:27 Intake and Output 09/13/18 09/13/18 09/14/18 1515:00 23:00 07:00 IntakeIntake Total 325 ml 725 ml 550 ml OutputOutput Total 125 ml 375 ml BalanceBalance 200 ml 350 ml 550 ml Gastrointestinal: soft Results Results 24hrs Laboratory Tests Test 09/14/18 04:49 White Blood Count 13.3 H Red Blood Count 3.37 #L Hemoglobin 10.9 #L Hematocrit 32.5 #L Mean Corpuscular Volume 96.4 Mean Corpuscular Hemoglobin 32.3 Mean Corpuscular Hemoglobin Concent 33.5 Red Cell Distribution Width 10.9 L Platelet Count 399 # Mean Platelet Volume 10.1 Immature Granulocytes % 1.000 H Neutrophils % 80.6 H Lymphocytes % 10.2 L Monocytes % 7.7 Eosinophils % 0.2 Basophils % 0.3 Nucleated Red Blood Cells % 0.0 Immature Granulocytes # 0.130 H Neutrophils # 10.7 H Lymphocytes # 1.4 Monocytes # 1.0 H Eosinophils # 0.0 Basophils # 0.0 Nucleated Red Blood Cells # 0.0 Sodium Level 138 Potassium Level 3.8 Chloride Level 101 Carbon Dioxide Level 25 Anion Gap 12 Blood Urea Nitrogen 12 Creatinine 0.62 Est Glomerular Filtrat Rate mL/min Glucose Level 156 Calcium Level 8.9 Magnesium Level 1.5 L Total Bilirubin 0.5 Direct Bilirubin 0.00 Indirect Bilirubin 0.5 Aspartate Amino Transf (AST/SGOT) 30 Alanine Aminotransferase (ALT/SGPT) 21 Alkaline Phosphatase 60 Total Protein 5.8 L Albumin 3.0 L Globulin 2.80 Albumin/Globulin Ratio 1.07 Medications Medication Current Medications Acetaminophen/ Hydrocodone Bitart ([place] (5/325)) 1 tab Q6H PRN PO PAIN LEVEL 6-10 Last administered on 09/12/18at 12:25; Admin Dose 1 TAB; Start 09/11/18 at 17:30 Acetaminophen/ Hydrocodone Bitart ([place] (10/325)) 1 tab Q6H PRN PO PAIN Last administered on 09/12/18at 21:35; Admin Dose 1 TAB; Start 09/11/18 at 17:30 Acetaminophen (Tylenol Tab) 650 mg Q6H PRN PO MILD PAIN(1-3)OR ELEVATED TEMP; Start 09/11/18 at 17:30 Famotidine (Pepcid Iv) 10 mg BID IV Last administered on 09/13/18 20:29; Admin Dose 10 MG; Start 09/11/18 at 21:00 Potassium Chloride/Dextrose/ Sod Cl 1,000 ml @ 75 mls/hr [id number] IV Last administered on 09/14/18at 03:50; Admin Dose 75 MLS/HR; Start 09/11/18 at 17:28 Ondansetron HCl (Zofran Inj) 4 mg Q6H PRN IV .NAUSEA/VOMITING Last administered on 09/13/18 14:22; Admin Dose 4 MG; Start 09/11/18 at 17:00 Zolpidem Tartrate (Ambien) 5 mg HS MAY REPEAT X 1 PRN PO .INSOMNIA; Start 09/11/18 at 17:00 Naloxone HCl (Narcan) 0.2 mg Q2M PRN IV .RESP RATE; Start 09/11/18 at 17:00 Hydromorphone HCl (Dilaudid COMPUGRAPH OPERATOR) 0 MG/HR CONTINUOUS RATE 0.... Q4PCA IV Last administered on 09/14/18at 01:19; Admin Dose 6 MG; Start 09/12/18 at 20:00 Senna (Senokot) 2 tab BID PO Last administered on 09/13/18 20:29; Admin Dose 2 TAB; Start 09/13/18 at 21:00 Polyethylene Glycol (Miralax) 17 gm DAILY PO ; Start 09/14/18 at 09:00 Levothyroxine Sodium (Synthroid) 50 mcg BEFORE BREAKFAST PO ; Start 09/14/18 at 07:00 Diphenhydramine HCl (Benadryl) 25 mg Q6H PRN IV ITCHING; Start 09/13/18 at 21:30; Stop 09/19/18 at 21:30 Sodium Biphosphate/ Sodium Phosphate (Fleet Enema) 133 ml DAILY PRN NE CONSTIPATION; Start 09/13/18 at 22:00 Bisacodyl (Dulcolax Supp) 10 mg DAILY PRN NE CONSTIPATION; Start 09/14/18 at 11:00 VIRGINIA COTE MD Sep 14, 2018 12:19
[2018-09-14] MEDS: FAMOTIDINE 20 MG INJ IV SCH ×2 (12:49→20:23)
[2018-09-14 14:00] VITALS: BP 128/70; PULSE 100; RESP 18
--- NOTE | 2018-09-14 17:35 | CONS ---
Assessment/Plan Assessment/Plan Assessment/Plan (Daily) 73 yo woman no major PMH presents after ovarian debulking surgery #Postoperative ileus - Patient is at high risk of ileus after intraperitoneal surgery on high doses of opiate analgesics. - NG tube to suction, no more oral laxatives - AL enemas and stimulants. #Postoperative pain - Agree with opioid analgesia as ordered by surgery. - Start PT/OT as soon as possible when cleared to ambulate by surgery. #Hypothyroidism - Patient should continue daily thyroid replacement - If unable to tolerate PO, can switch to 25 mg IV daily. #Anemia - Transfuse pRBCs for symptomatic anemia or if Hgb drops to <7. #DVT prophylaxis - In case of prolonged immobility, consider prophylactic enoxaparin 40mg daily when okay from surgical perspective. Patient is at high risk of venous thromboembolism. Thank you for the consult. We will continue to follow. Consultation Date/Type/Reason Admit Date/Time Sep 11, 2018 at 10:17 Initial Consult Date 09/13/18 Type of Consult Internal Medicine Reason for Consultation Postoperative management Requesting Provider: VIRGINIA COTE MD Date/Time of Note DATE: 09/14/18 TIME: 17:33 24 HR Interval Summary Free Text/Dictation NG tube placed to suction, 1L dark bilious fluid aspirated immediately. Despite AL dulcolax and enema, still no bowel movement. Pain adequately controlled, not requiring dilaudid COAGULATOR. PICC line placed today. Exam/Review of Systems Exam Vitals Vital Signs Date Temp Pulse Resp B/P (MAP) Pulse Ox O2 O2 Flow FiO2 Time Delivery Rate 09/14/18 97.6 100 18 128/70 92 Nasal 14:00 (89) Cannula 09/13/18 2.0 08:27 Intake and Output 09/13/18 09/13/18 09/14/18 1515:00 23:00 07:00 IntakeIntake Total 325 ml 725 ml 550 ml OutputOutput Total 125 ml 375 ml BalanceBalance 200 ml 350 ml 550 ml Exam Gen: Obese woman lying in bed, uncomfortable appearing. Eyes: PERRL, no icterus HEENT: Dry mucous membranes, clear oropharynx Neck: R neck IJ line in place, no lymphadenopathy Card: Regular rate and rhythm, no murmurs Pulm: Clear to auscultation bilaterally Abd: Absent bowel sounds. Midline surgical dressing clean/dry/intact. RLQ MARQUEZ drain with scant serosanguineous output. Nontender to light palpation throughout. Ext: R>L knee nodularity and arthritis. Otherwise no edema. Skin: warm, dry, well perfused. Results Result Diagram: 09/14/1844809/14/18448 Results 24hrs Laboratory Tests Test 09/14/18 04:49 White Blood Count 13.3 H Red Blood Count 3.37 #L Hemoglobin 10.9 #L Hematocrit 32.5 #L Mean Corpuscular Volume 96.4 Mean Corpuscular Hemoglobin 32.3 Mean Corpuscular Hemoglobin Concent 33.5 Red Cell Distribution Width 10.9 L Platelet Count 399 # Mean Platelet Volume 10.1 Immature Granulocytes % 1.000 H Neutrophils % 80.6 H Lymphocytes % 10.2 L Monocytes % 7.7 Eosinophils % 0.2 Basophils % 0.3 Nucleated Red Blood Cells % 0.0 Immature Granulocytes # 0.130 H Neutrophils # 10.7 H Lymphocytes # 1.4 Monocytes # 1.0 H Eosinophils # 0.0 Basophils # 0.0 Nucleated Red Blood Cells # 0.0 Sodium Level 138 Potassium Level 3.8 Chloride Level 101 Carbon Dioxide Level 25 Anion Gap 12 Blood Urea Nitrogen 12 Creatinine 0.62 Est Glomerular Filtrat Rate mL/min Glucose Level 156 Calcium Level 8.9 Magnesium Level 1.5 L Total Bilirubin 0.5 Direct Bilirubin 0.00 Indirect Bilirubin 0.5 Aspartate Amino Transf (AST/SGOT) 30 Alanine Aminotransferase (ALT/SGPT) 21 Alkaline Phosphatase 60 Total Protein 5.8 L Albumin 3.0 L Globulin 2.80 Albumin/Globulin Ratio 1.07 Medications Medication Current Medications Acetaminophen/ Hydrocodone Bitart ([place] (5/325)) 1 tab Q6H PRN PO PAIN LEVEL 6-10 Last administered on 09/12/18at 12:25; Admin Dose 1 TAB; Start 09/11/18 at 17:30 Acetaminophen/ Hydrocodone Bitart ([place] (10/325)) 1 tab Q6H PRN PO PAIN Last administered on 09/12/18at 21:35; Admin Dose 1 TAB; Start 09/11/18 at 17:30 Acetaminophen (Tylenol Tab) 650 mg Q6H PRN PO MILD PAIN(1-3)OR ELEVATED TEMP; Start 09/11/18 at 17:30 Famotidine (Pepcid Iv) 10 mg BID IV Last administered on 09/14/18at 12:49; Admin Dose 10 MG; Start 09/11/18 at 21:00 Potassium Chloride/Dextrose/ Sod Cl 1,000 ml @ 75 mls/hr [id number] IV Last administered on 09/14/18at 03:50; Admin Dose 75 MLS/HR; Start 09/11/18 at 17:28 Ondansetron HCl (Zofran Inj) 4 mg Q6H PRN IV .NAUSEA/VOMITING Last administered on 09/13/18at 14:22; Admin Dose 4 MG; Start 09/11/18 at 17:00 Zolpidem Tartrate (Ambien) 5 mg HS MAY REPEAT X 1 PRN PO .INSOMNIA; Start 09/11/18 at 17:00 Naloxone HCl (Narcan) 0.2 mg Q2M PRN IV .RESP RATE; Start 09/11/18 at 17:00 Hydromorphone HCl (Dilaudid COAGULATOR) 0 MG/HR CONTINUOUS RATE 0.... Q4PCA IV Last administered on 09/14/18at 01:19; Admin Dose 6 MG; Start 09/12/18 at 20:00 Senna (Senokot) 2 tab BID PO Last administered on 09/13/18at 20:29; Admin Dose 2 TAB; Start 09/13/18 at 21:00 Polyethylene Glycol (Miralax) 17 gm DAILY PO ; Start 09/14/18 at 09:00 Levothyroxine Sodium (Synthroid) 50 mcg BEFORE BREAKFAST PO ; Start 09/14/18 at 07:00 Diphenhydramine HCl (Benadryl) 25 mg Q6H PRN IV ITCHING; Start 09/13/18 at 21:30; Stop 09/19/18 at 21:30 Sodium Biphosphate/ Sodium Phosphate (Fleet Enema) 133 ml DAILY PRN [place] CONSTIPATION; Start 09/13/18 at 22:00 Bisacodyl (Dulcolax Supp) 10 mg DAILY PRN AL CONSTIPATION; Start 09/14/18 at 11:00 LUCINDA PANDYA MD Sep 14, 2018 17:35
[2018-09-14 20:39] VITALS: BP 136/74; PULSE 113; RESP 18
[2018-09-15 00:27] VITALS: BP 119/69; PULSE 106; RESP 18
[2018-09-15] MEDS: LEVOTHYROXINE 50 MCG TAB PO SCH ×2 (07:00→09:06)
[2018-09-15 07:57] VITALS: BP 108/58; PULSE 99; RESP 18
[2018-09-15] MEDS: FAMOTIDINE 20 MG INJ IV SCH ×3 (09:05→23:18)
[2018-09-15] MEDS: POLYETHYLENE GLYCOL 17 GM PACKET PO SCH (09:05)
[2018-09-15] MEDS: SENNA TAB PO SCH ×2 (09:06→21:55)
[2018-09-15] MEDS: D5-NS + KCL 20 MEQ 1,000 ML IV SCH ×2 (09:10→22:15)
--- NOTE | 2018-09-15 09:55 | PN ---
Date/Time of Note Date/Time of Note DATE: 09/15/18 TIME: 09:54 Assessment/Plan VTE Prophylaxis Risk score (from Nsg)>0 risk: 13 SCD applied (from Ns): Yes SCD contraindicated: other Pharmacological prophylaxis: LMWH Lines/Catheters IV Catheter Type (from Nrsg): PICC Line Central line still needed: No Urinary Cath still in place: No Assessment/Plan Hospital Course POD #4 Assessment/Plan ON clear liquid, ambulate, s/p PICC line. Lovenox. Result Diagram: 09/14/1844809/14/18448 Subjective 24 Hr Interval Summary Free Text/Dictation Small passive BM, NG out Exam/Review of Systems Exam Vitals Vital Signs Date Temp Pulse Resp B/P (MAP) Pulse Ox O2 O2 Flow FiO2 Time Delivery Rate 09/15/18 98.3 99 18 108/58 90 Room Air 07:57 (75) 09/14/18 2.0 19:47 Intake and Output 09/14/18 09/14/18 09/15/18 1515:00 23:00 07:00 IntakeIntake Total 975 ml OutputOutput Total 1755 ml 455 ml BalanceBalance -1755 ml 520 ml Gastrointestinal: soft Medications Medication Current Medications Acetaminophen/ Hydrocodone Bitart ([place] (5/325)) 1 tab Q6H PRN PO PAIN LEVEL 6-10 Last administered on 09/12/18at 12:25; Admin Dose 1 TAB; Start 09/11/18 at 17:30 Acetaminophen/ Hydrocodone Bitart ([place] (10/325)) 1 tab Q6H PRN PO PAIN Last administered on 09/12/18at 21:35; Admin Dose 1 TAB; Start 09/11/18 at 17:30 Acetaminophen (Tylenol Tab) 650 mg Q6H PRN PO MILD PAIN(1-3)OR ELEVATED TEMP; Start 09/11/18 at 17:30 Famotidine (Pepcid Iv) 10 mg BID IV Last administered on 09/15/18at 09:05; Admin Dose 10 MG; Start 09/11/18 at 21:00 Potassium Chloride/Dextrose/ Sod Cl 1,000 ml @ 75 mls/hr [id number] IV Last a dministered on 09/15/18at 09:10; Admin Dose 75 MLS/HR; Start 09/11/18 at 17:28 Ondansetron HCl (Zofran Inj) 4 mg Q6H PRN IV .NAUSEA/VOMITING Last administered on 09/13/18at 14:22; Admin Dose 4 MG; Start 09/11/18 at 17:00 Zolpidem Tartrate (Ambien) 5 mg HS MAY REPEAT X 1 PRN PO .INSOMNIA; Start 09/11/18 at 17:00 Naloxone HCl (Narcan) 0.2 mg Q2M PRN IV .RESP RATE; Start 09/11/18 at 17:00 Hydromorphone HCl (Dilaudid DIE CASTING MACHINE SETTER) 0 MG/HR CONTINUOUS RATE 0.... Q4PCA IV Last administered on 09/14/18 01:19; Admin Dose 6 MG; Start 09/12/18 at 20:00 Senna (Senokot) 2 tab BID PO Last administered on 09/15/18 09:06; Admin Dose 2 TAB; Start 09/13/18 at 21:00 Polyethylene Glycol (Miralax) 17 gm DAILY PO Last administered on 09/15/18 09:05; Admin Dose 17 GM; Start 09/14/18 at 09:00 Levothyroxine Sodium (Synthroid) 50 mcg BEFORE BREAKFAST PO Last administered on 09/15/18 09:06; Admin Dose 50 MCG; Start 09/14/18 at 07:00 Diphenhydramine HCl (Benadryl) 25 mg Q6H PRN IV ITCHING; Start 09/13/18 at 21:30; Stop 09/19/18 at 21:30 Sodium Biphosphate/ Sodium Phosphate (Fleet Enema) 133 ml DAILY PRN [place] CONSTIPATION; Start 09/13/18 at 22:00 Bisacodyl (Dulcolax Supp) 10 mg DAILY PRN DC CONSTIPATION Last administered on 09/14/18at 20:30; Admin Dose 10 MG; Start 09/14/18 at 11:00 VIRGINIA COTE MD Sep 15, 2018 09:55
--- NOTE | 2018-09-15 13:54 | CONS ---
Consult Date/Type/Reason Admit Date/Time Sep 11, 2018 at 10:17 Initial Consult Date 09/13/18 Requesting Provider: VIRGINIA COTE MD Date/Time of Note DATE: 09/15/18 TIME: 13:49 Subjective Patient seen by [employer] oncology team earlier today. Objective Vitals Vital Signs Date Temp Pulse Resp B/P (MAP) Pulse Ox O2 O2 Flow FiO2 Time Delivery Rate 09/15/18 20 08:25 09/15/18 98.3 99 108/58 90 Room Air 07:57 (75) 09/14/18 2.0 19:47 Intake and Output 09/14/18 09/14/18 09/15/18 1515:00 23:00 07:00 IntakeIntake Total 975 ml OutputOutput Total 1755 ml 455 ml BalanceBalance -1755 ml 520 ml Exam Gen: Obese woman lying in bed, NAD, family at bedside Eyes: PERRL, no icterus HEENT: Dry mucous membranes, clear oropharynx Neck: R neck IJ line in place, no lymphadenopathy Card: Regular rate and rhythm, no murmurs Pulm: Clear to auscultation bilaterally Abd: Decreased bowel sounds. Midline surgical dressing clean/dry/intact. RLQ MARQUEZ drain with scant serosanguineous output. Nontender to light palpation throughout. Ext: R>L knee nodularity and arthritis. Otherwise no edema. Date/Time of Note Date/Time of Note DATE: 09/11/18 TIME: 17:37 Operative Report Procedure Date: Sep 11, 2018 Preoperative Diagnosis Ovarian cancer, s/p neoadjuvant chemotherapy Postoperative Diagnosis Same, extensive disease Operation/Procedure Performed Exploratory laparotomy, omentectomy, right salpingo-oophrectomy, sub-optimal tumor debulking Results/Medications Result Diagram: 09/14/18 0449 09/14/18 0449 Home Meds Reported Medications Levothyroxine Sodium* (Levothyroxine Sodium*) 50 Mcg Tablet, 50 MCG PO BEFORE B REAKFAST, #30 TAB 09/11/18 Medications Current Medications Acetaminophen/ Hydrocodone Bitart ([place] (5/325)) 1 tab Q6H PRN PO PAIN LEVEL 6-10 Last administered on 09/12/18at 12:25; Admin Dose 1 TAB; Start 09/11/18 at 17:30 Acetaminophen/ Hydrocodone Bitart ([place] (10/325)) 1 tab Q6H PRN PO PAIN Last administered on 09/12/18 21:35; Admin Dose 1 TAB; Start 09/11/18 at 17:30 Acetaminophen (Tylenol Tab) 650 mg Q6H PRN PO MILD PAIN(1-3)OR ELEVATED TEMP; Start 09/11/18 at 17:30 Famotidine (Pepcid Iv) 10 mg BID IV Last administered on 09/15/18 09:05; Admin Dose 10 MG; Start 09/11/18 at 21:00 Potassium Chloride/Dextrose/ Sod Cl 1,000 ml @ 75 mls/hr [id number] IV Last administered on 09/15/18 09:10; Admin Dose 75 MLS/HR; Start 09/11/18 at 17:28 Ondansetron HCl (Zofran Inj) 4 mg Q6H PRN IV .NAUSEA/VOMITING Last administered on 09/13/18 14:22; Admin Dose 4 MG; Start 09/11/18 at 17:00 Zolpidem Tartrate (Ambien) 5 mg HS MAY REPEAT X 1 PRN PO .INSOMNIA; Start 09/11/18 at 17:00 Naloxone HCl (Narcan) 0.2 mg Q2M PRN IV .RESP RATE; Start 09/11/18 at 17:00 Hydromorphone HCl (Dilaudid POLITICAL RESEARCH SCIENTIST) 0 MG/HR CONTINUOUS RATE 0.... Q4PCA IV Last administered on 09/14/18 01:19; Admin Dose 6 MG; Start 09/12/18 at 20:00 Senna (Senokot) 2 tab BID PO Last administered on 09/15/18 09:06; Admin Dose 2 TAB; Start 09/13/18 at 21:00 Polyethylene Glycol (Miralax) 17 gm DAILY PO Last administered on 09/15/18 09:05; Admin Dose 17 GM; Start 09/14/18 at 09:00 Levothyroxine Sodium (Synthroid) 50 mcg BEFORE BREAKFAST PO Last administered on 09/15/18 09:06; Admin Dose 50 MCG; Start 09/14/18 at 07:00 Diphenhydramine HCl (Benadryl) 25 mg Q6H PRN IV ITCHING; Start 09/13/18 at 21 :30; Stop 09/19/18 at 21:30 Sodium Biphosphate/ Sodium Phosphate (Fleet Enema) 133 ml DAILY PRN [place] CONSTIPATION; Start 09/13/18 at 22:00 Bisacodyl (Dulcolax Supp) 10 mg DAILY PRN [place] CONSTIPATION Last administered on 09/14/18at 20:30; Admin Dose 10 MG; Start 09/14/18 at 11:00 Assessment/Plan Hospital Course (Demo Recall) Assessment/Plan: 73 yo woman no major PMH presents after ovarian debulking surgery. #Ovarian cancer- status post debulking surgery postop day #4 -Continue current pain control medications, follow-up primary team recommendation #Postoperative ileus-improving, patient is at high risk of ileus after intraperitoneal surgery on high doses of opiate analgesics. -For now continue clear liquid diet - [place] enemas and stimulants as needed #Postoperative pain- Agree with opioid analgesia as ordered by surgery. - Start PT/OT as soon as possible when cleared to ambulate by surgery. #Hypothyroidism - Patient should continue daily thyroid replacement - If unable to tolerate PO, can switch to 25 mg IV daily. #Anemia - Transfuse pRBCs for symptomatic anemia or if Hgb drops to <7. #DVT prophylaxis - In case of prolonged immobility, consider prophylactic enoxaparin 40mg daily when okay from surgical perspective. Patient is at high risk of venous thromboembolism. Thank you for the consult. We will continue to follow. TOMA DAMON Sep 15, 2018 13:54
[2018-09-15 14:36] VITALS: BP 109/56; PULSE 99; RESP 18
[2018-09-15 20:25] VITALS: BP 110/55; PULSE 102; RESP 19
[2018-09-16] MEDS: D5-NS + KCL 20 MEQ 1,000 ML IV SCH ×2 (00:24→11:27)
[2018-09-16] MEDS: LEVOTHYROXINE 50 MCG TAB PO SCH (06:06)
[2018-09-16 07:29] VITALS: BP 118/73; PULSE 97; RESP 18
[2018-09-16] MEDS: POLYETHYLENE GLYCOL 17 GM PACKET PO SCH (08:32)
[2018-09-16] MEDS: SENNA TAB PO SCH ×2 (08:32→20:28)
[2018-09-16] MEDS: FAMOTIDINE 20 MG INJ IV SCH ×2 (08:33→20:28)
--- NOTE | 2018-09-16 14:02 | CONS ---
Consult Date/Type/Reason Admit Date/Time Sep 11, 2018 at 10:17 Initial Consult Date 09/13/18 Requesting Provider: VIRGINIA COTE MD Date/Time of Note DATE: 09/16/18 TIME: 13:58 Subjective Patient having some mild incisional abdominal pain, but able to embolus to the bathroom. No acute events overnight. Still on clear liquid diet. Objective Vitals Vital Signs Date Temp Pulse Resp B/P (MAP) Pulse Ox O2 O2 Flow FiO2 Time Delivery Rate 09/16/18 98.3 97 18 118/73 96 Room Air 07:29 (88) 09/14/18 2.0 19:47 Intake and Output 09/15/18 09/15/18 09/16/18 1515:00 23:00 07:00 IntakeIntake Total 1250 ml 1325 ml OutputOutput Total 560 ml 95 ml 100 ml BalanceBalance 690 ml 1230 ml -100 ml Exam Gen: Obese woman lying in bed, NAD Eyes: PERRL, no icterus HEENT: PERRLA, EOMI Neck: R neck IJ line in place, no lymphadenopathy Card: Regular rate and rhythm, no murmurs Pulm: Clear to auscultation bilaterally Abd:. Midline surgical dressing clean/dry/intact. RLQ MARQUEZ drain with scant serosanguineous output. Nontender to light palpation throughout. Ext: R>L knee nodularity and arthritis. Otherwise no edema. Date/Time of Note Date/Time of Note DATE: 09/11/18 TIME: 17:37 Operative Report Procedure Date: Sep 11, 2018 Preoperative Diagnosis Ovarian cancer, s/p neoadjuvant chemotherapy Postoperative Diagnosis Same, extensive disease Operation/Procedure Performed Exploratory laparotomy, omentectomy, right salpingo-oophrectomy, sub-optimal t umor debulking Results/Medications Result Diagram: 09/16/18 0514 09/16/18 0514 Results 24 hrs Laboratory Tests Test 09/16/18 05:14 White Blood Count 9.3 # Red Blood Count 2.69 #L Hemoglobin 8.8 L Hematocrit 26.4 L Mean Corpuscular Volume 98.1 Mean Corpuscular Hemoglobin 32.7 Mean Corpuscular Hemoglobin Concent 33.3 Red Cell Distribution Width 11.3 L Platelet Count 306 # Mean Platelet Volume 9.8 Immature Granulocytes % 1.300 H Neutrophils % 72.8 Lymphocytes % 15.2 Monocytes % 8.9 Eosinophils % 1.6 Basophils % 0.2 Nucleated Red Blood Cells % 0.0 Immature Granulocytes # 0.120 H Neutrophils # 6.8 Lymphocytes # 1.4 Monocytes # 0.8 Eosinophils # 0.2 Basophils # 0.0 Nucleated Red Blood Cells # 0.0 Sodium Level 138 Potassium Level 3.5 Chloride Level 105 Carbon Dioxide Level 26 Anion Gap 7 Blood Urea Nitrogen 12 Creatinine 0.60 Est Glomerular Filtrat Rate mL/min Glucose Level 113 Calcium Level 7.5 L Phosphorus Level 2.9 Magnesium Level 1.9 Home Meds Reported Medications Levothyroxine Sodium* (Levothyroxine Sodium*) 50 Mcg Tablet, 50 MCG PO BEFORE BREAKFAST, #30 TAB 09/11/18 Medications Current Medications Acetaminophen/ Hydrocodone Bitart ([place] (5/325)) 1 tab Q6H PRN PO PAIN LEVEL 6-10 Last administered on 09/12/18 12:25; Admin Dose 1 TAB; Start 09/11/18 at 17:30 Acetaminophen/ Hydrocodone Bitart ([place] (10/325)) 1 tab Q6H PRN PO PAIN Last administered on 09/12/18 21:35; Admin Dose 1 TAB; Start 09/11/18 at 17:30 Acetaminophen (Tylenol Tab) 650 mg Q6H PRN PO MILD PAIN(1-3)OR ELEVATED TEMP; Start 09/11/18 at 17:30 Famotidine (Pepcid Iv) 10 mg BID IV Last administered on 09/16/18 08:33; Admin Dose 10 MG; Start 09/11/18 at 21:00 Potassium Chloride/Dextrose/ Sod Cl 1,000 ml @ 75 mls/hr [id number] IV Last administered on 09/16/18 11:27; Admin Dose 75 MLS/HR; Start 09/11/18 at 17:28 Ondansetron HCl (Zofran Inj) 4 mg Q6H PRN IV .NAUSEA/VOMITING Last administered on 09/13/18 14:22; Admin Dose 4 MG; Start 09/11/18 at 17:00 Zolpidem Tartrate (Ambien) 5 mg HS MAY REPEAT X 1 PRN PO .INSOMNIA; Start 09/11/18 at 17:00 Naloxone HCl (Narcan) 0.2 mg Q2M PRN IV .RESP RATE; Start 09/11/18 at 17:00 Hydromorphone HCl (Dilaudid [employer] WATER FILLER) 0 MG/HR CONTINUOUS RATE 0.... Q4PCA IV Last administered on 09/14/18at 01:19; Admin Dose 6 MG; Start 09/12/18 at 20:00 Senna (Senokot) 2 tab BID PO Last administered on 09/16/18at 08:32; Admin Dose 2 TAB; Start 09/13/18 at 21:00 Polyethylene Glycol (Miralax) 17 gm DAILY PO Last administered on 09/16/18at 08:32; Admin Dose 17 GM; Start 09/14/18 at 09:00 Levothyroxine Sodium (Synthroid) 50 mcg BEFORE BREAKFAST PO Last administered on 09/16/18at 06:06; Admin Dose 50 MCG; Start 09/14/18 at 07:00 Diphenhydramine HCl (Benadryl) 25 mg Q6H PRN IV ITCHING; Start 09/13/18 at 21:30; Stop 09/19/18 at 21:30 Sodium Biphosphate/ Sodium Phosphate (Fleet Enema) 133 ml DAILY PRN [place] CONSTIPATION; Start 09/13/18 at 22:00 Bisacodyl (Dulcolax Supp) 10 mg DAILY PRN [place] CONSTIPATION Last administered on 09/14/18at 20:30; Admin Dose 10 MG; Start 09/14/18 at 11:00 Assessment/Plan Hospital Course (Demo Recall) Assessment/Plan: 73 yo woman no major PMH presents after ovarian debulking surgery. #Ovarian cancer- status post debulking surgery postop day # 5. -Continue current pain control medications, follow-up primary team recommendation #Postoperative ileus-improving, patient is at high risk of ileus after intraperitoneal surgery on high doses of opiate analgesics. -For now continue clear liquid diet per primary team recommendations - [place] enemas and stimulants as needed #Postoperative pain- Agree with opioid analgesia as ordered by surgery. -Continue PT/OT #Hypothyroidism - Patient should continue daily thyroid replacement - If unable to tolerate PO, can switch to 25 mg IV daily. #Anemia -Monitor, consider transfuse pRBCs for symptomatic anemia or if Hgb drops to <7. #DVT prophylaxis - In case of prolonged immobility, consider prophylactic enoxaparin 40mg daily when okay from surgical perspective. Patient is at high risk of venous thromboembolism. Thank you for the consult. We will continue to follow. TOMA DAMON. Sep 16, 2018 14:01
[2018-09-16 14:31] VITALS: BP 113/64; PULSE 103; RESP 20
--- NOTE | 2018-09-16 18:42 | PN ---
Date/Time of Note Date/Time of Note DATE: 09/16/18 TIME: 18:41 Assessment/Plan VTE Prophylaxis Risk score (from Ns)>0 risk: 5 SCD applied (from Ns): Yes Pharmacological prophylaxis: LMWH, other Lines/Catheters IV Catheter Type (from Nrs): PICC Line Central line still needed: No Urinary Cath still in place: No Assessment/Plan Hospital Course POD #5 Assessment/Plan Advance diet, ambulate Result Diagram: 09/16/1814 09/16/1814 Results 24hrs Laboratory Tests Test 09/16/18 05:14 White Blood Count 9.3 # Red Blood Count 2.69 #L Hemoglobin 8.8 L Hematocrit 26.4 L Mean Corpuscular Volume 98.1 Mean Corpuscular Hemoglobin 32.7 Mean Corpuscular Hemoglobin Concent 33.3 Red Cell Distribution Width 11.3 L Platelet Count 306 # Mean Platelet Volume 9.8 Immature Granulocytes % 1.300 H Neutrophils % 72.8 Lymphocytes % 15.2 Monocytes % 8.9 Eosinophils % 1.6 Basophils % 0.2 Nucleated Red Blood Cells % 0.0 Immature Granulocytes # 0.120 H Neutrophils # 6.8 Lymphocytes # 1.4 Monocytes # 0.8 Eosinophils # 0.2 Basophils # 0.0 Nucleated Red Blood Cells # 0.0 Sodium Level 138 Potassium Level 3.5 Chloride Level 105 Carbon Dioxide Level 26 Anion Gap 7 Blood Urea Nitrogen 12 Creatinine 0.60 Est Glomerular Filtrat Rate mL/min Glucose Level 113 Calcium Level 7.5 L Phosphorus Level 2.9 Magnesium Level 1.9 Subjective 24 Hr Interval Summary Free Text/Dictation Diarrhea Exam/Review of Systems Exam Vitals Vital Signs Date Temp Pulse Resp B/P (MAP) Pulse Ox O2 O2 Flow FiO2 Time Delivery Rate 09/16/18 17 17:00 09/16/18 97.3 103 113/64 94 Room Air 14:31 (80) 09/14/18 2.0 19:47 Intake and Output 09/15/18 09/15/18 09/16/18 1515:00 23:00 07:00 IntakeIntake Total 1250 ml 1325 ml OutputOutput Total 560 ml 95 ml 100 ml BalanceBalance 690 ml 1230 ml -100 ml Gastrointestinal: soft Results Results 24hrs Laboratory Tests Test 09/16/18 05:14 White Blood Count 9.3 # Red Blood Count 2.69 #L Hemoglobin 8.8 L Hematocrit 26.4 L Mean Corpuscular Volume 98.1 Mean Corpuscular Hemoglobin 32.7 Mean Corpuscular Hemoglobin Concent 33.3 Red Cell Distribution Width 11.3 L Platelet Count 306 # Mean Platelet Volume 9.8 Immature Granulocytes % 1.300 H Neutrophils % 72.8 Lymphocytes % 15.2 Monocytes % 8.9 Eosinophils % 1.6 Basophils % 0.2 Nucleated Red Blood Cells % 0.0 Immature Granulocytes # 0.120 H Neutrophils # 6.8 Lymphocytes # 1.4 Monocytes # 0.8 Eosinophils # 0.2 Basophils # 0.0 Nucleated Red Blood Cells # 0.0 Sodium Level 138 Potassium Level 3.5 Chloride Level 105 Carbon Dioxide Level 26 Anion Gap 7 Blood Urea Nitrogen 12 Creatinine 0.60 Est Glomerular Filtrat Rate mL/min Glucose Level 113 Calcium Level 7.5 L Phosphorus Level 2.9 Magnesium Level 1.9 Medications Medication Current Medications Acetaminophen/ Hydrocodone Bitart ([place] (5/325)) 1 tab Q6H PRN PO PAIN LEVEL 6-10 Last administered on 09/12/18 12:25; Admin Dose 1 TAB; Start 09/11/18 at 17:30 Acetaminophen/ Hydrocodone Bitart ([place] (10/325)) 1 tab Q6H PRN PO PAIN Last administered on 09/12/18 21:35; Admin Dose 1 TAB; Start 09/11/18 at 17:30 Acetaminophen (Tylenol Tab) 650 mg Q6H PRN PO MILD PAIN(1-3)OR ELEVATED TEMP; Start 09/11/18 at 17:30 Famotidine (Pepcid Iv) 10 mg BID IV Last administered on 09/16/18 08:33; Admin Dose 10 MG; Start 09/11/18 at 21:00 Potassium Chloride/Dextrose/ Sod Cl 1,000 ml @ 75 mls/hr [id number] IV Last administered on 09/16/18 11:27; Admin Dose 75 MLS/HR; Start 09/11/18 at 17:28 Ondansetron HCl (Zofran Inj) 4 mg Q6H PRN IV .NAUSEA/VOMITING Last administered on 09/13/18 14:22; Admin Dose 4 MG; Start 09/11/18 at 17:00 Zolpidem Tartrate (Ambien) 5 mg HS MAY REPEAT X 1 PRN PO .INSOMNIA; Start 09/11/18 at 17:00 Naloxone HCl (Narcan) 0.2 mg Q2M PRN IV .RESP RATE; Start 09/11/18 at 17:00 Hydromorphone HCl (Dilaudid KOSHER SEALER) 0 MG/HR CONTINUOUS RATE 0.... Q4PCA IV Last administered on 09/14/18 01:19; Admin Dose 6 MG; Start 09/12/18 at 20:00 Senna (Senokot) 2 tab BID PO Last administered on 09/16/18at 08:32; Admin Dose 2 TAB; Start 09/13/18 at 21:00 Polyethylene Glycol (Miralax) 17 gm DAILY PO Last administered on 09/16/18at 08: 32; Admin Dose 17 GM; Start 09/14/18 at 09:00 Levothyroxine Sodium (Synthroid) 50 mcg BEFORE BREAKFAST PO Last administered on 09/16/18 06:06; Admin Dose 50 MCG; Start 09/14/18 at 07:00 Diphenhydramine HCl (Benadryl) 25 mg Q6H PRN IV ITCHING; Start 09/13/18 at 21:30; Stop 09/19/18 at 21:30 Sodium Biphosphate/ Sodium Phosphate (Fleet Enema) [address] [place] CONSTIPATION; Start 09/13/18 at 22:00 Bisacodyl (Dulcolax Supp) [address] CONSTIPATION Last administered on 09/14/18at 20:30; Admin Dose 10 MG; Start 09/14/18 at 11:00 VIRGINIA COTE MD Sep 16, 2018 18:42
[2018-09-16 20:18] VITALS: BP 136/65; PULSE 94; RESP 18
[2018-09-16] MEDS: ONDANSETRON 4 MG INJ IV PRN (20:28)
[2018-09-17] MEDS: D5-NS + KCL 20 MEQ 1,000 ML IV SCH ×3 (01:14→14:44)
[2018-09-17 02:35] VITALS: BP 114/57; PULSE 104; RESP 18
[2018-09-17] MEDS: LEVOTHYROXINE 50 MCG TAB PO SCH (05:56)
[2018-09-17] MEDS: ONDANSETRON 4 MG INJ IV PRN (05:58)
[2018-09-17 08:01] VITALS: BP 121/60; PULSE 104; RESP 18
[2018-09-17] MEDS: SENNA TAB PO SCH (09:00)
[2018-09-17] MEDS: POLYETHYLENE GLYCOL 17 GM PACKET PO SCH (09:00)
[2018-09-17] MEDS: FAMOTIDINE 20 MG INJ IV SCH ×2 (09:06→20:46)
[2018-09-17] MEDS: AL HYDROX/MG HYDROX/SIMETH 30 ML CUP PO PRN ×2 (12:20→22:12)
--- NOTE | 2018-09-17 12:20 | CONS ---
Consult Date/Type/Reason Admit Date/Time Sep 11, 2018 at 10:17 Initial Consult Date 09/13/18 Requesting Provider: VIRGINIA COTE MD Date/Time of Note DATE: 09/17/18 TIME: 12:19 Subjective Patient seen by primary [employer] [place] team yesterday. Having some loose stools. Objective Vitals Vital Signs Date Temp Pulse Resp B/P (MAP) Pulse Ox O2 O2 Flow FiO2 Time Delivery Rate 09/17/18 17 09:00 09/17/18 99.3 104 121/60 90 Room Air 08:01 (80) 09/14/18 2.0 19:47 Intake and Output 09/16/18 09/16/18 09/17/18 1515:00 23:00 07:00 IntakeIntake Total 1260 ml 615 ml 975 ml OutputOutput Total 1 ml 145 ml 85 ml BalanceBalance 1259 ml 470 ml 890 ml Exam Gen: Obese woman lying in bed, NAD Eyes: PERRL, no icterus HEENT: PERRLA, EOMI Neck: R neck IJ line in place, no lymphadenopathy Card: Regular rate and rhythm, no murmurs Pulm: Clear to auscultation bilaterally Abd:. Midline surgical dressing clean/dry/intact. RLQ MARQUEZ drain with scant serosanguineous output. Nontender to light palpation throughout. Ext: R>L knee nodularity and arthritis. Otherwise no edema. Results/Medications Result Diagram: 09/17/18 0452 09/17/18 0452 Results 24 hrs Laboratory Tests Test 09/17/18 04:52 White Blood Count 10.1 Red Blood Count 2.66 L Hemoglobin 8.6 L Hematocrit 25.9 L Mean Corpuscular Volume 97.4 Mean Corpuscular Hemoglobin 32.3 Mean Corpuscular Hemoglobin Concent 33.2 Red Cell Distribution Width 11.5 Platelet Count 319 Mean Platelet Volume 9.7 Immature Granulocytes % 2.100 H Neutrophils % 76.6 Lymphocytes % 12.6 L Monocytes % 6.9 Eosinophils % 1.5 Basophils % 0.3 Nucleated Red Blood Cells % 0.0 Immature Granulocytes # 0.210 H Neutrophils # 7.7 H Lymphocytes # 1.3 Monocytes # 0.7 Eosinophils # 0.2 Basophils # 0.0 Nucleated Red Blood Cells # 0.0 Sodium Level 137 Potassium Level 3.5 Chloride Level 105 Carbon Dioxide Level 24 Anion Gap 8 Blood Urea Nitrogen 6 L Creatinine 0.56 Est Glomerular Filtrat Rate mL/min Glucose Level 103 Calcium Level 7.3 L Home Meds Reported Medications Levothyroxine Sodium* (Levothyroxine Sodium*) 50 Mcg Tablet, 50 MCG PO BEFORE BR EAKFAST, #30 TAB 09/11/18 Medications Current Medications Acetaminophen/ Hydrocodone Bitart ([place] (5/325)) 1 tab Q6H PRN PO PAIN LEVEL 6-10 Last administered on 09/12/18 12:25; Admin Dose 1 TAB; Start 09/11/18 at 17:30 Acetaminophen/ Hydrocodone Bitart ([place] (10/325)) 1 tab Q6H PRN PO PAIN Last administered on 09/12/18 21:35; Admin Dose 1 TAB; Start 09/11/18 at 17:30 Acetaminophen (Tylenol Tab) 650 mg Q6H PRN PO MILD PAIN(1-3)OR ELEVATED TEMP; Start 09/11/18 at 17:30 Famotidine (Pepcid Iv) 10 mg BID IV Last administered on 09/17/18 09:06; Admin Dose 10 MG; Start 09/11/18 at 21:00 Potassium Chloride/Dextrose/ Sod Cl 1,000 ml @ 75 mls/hr [id number] IV Last administered on 09/17/18 01:14; Admin Dose 75 MLS/HR; Start 09/11/18 at 17:28 Ondansetron HCl (Zofran Inj) 4 mg Q6H PRN IV .NAUSEA/VOMITING Last administered on 09/17/18 05:58; Admin Dose 4 MG; Start 09/11/18 at 17:00 Zolpidem Tartrate (Ambien) 5 mg HS MAY REPEAT X 1 PRN PO .INSOMNIA; Start 09/11/18 at 17:00 Naloxone HCl (Narcan) 0.2 mg Q2M PRN IV .RESP RATE; Start 09/11/18 at 17:00 Hydromorphone HCl (Dilaudid [employer]) 0 MG/HR CONTINUOUS RATE 0.... Q4PCA IV Last administered on 09/14/18 01:19; Admin Dose 6 MG; Start 09/12/18 at 20:00 Senna (Senokot) 2 tab BID PO Last administered on 3/12/19at 08:32; Admin Dose 2 TAB; Start 09/13/18 at 21:00 Polyethylene Glycol (Miralax) 17 gm DAILY PO Last administered on 09/16/18at 08:32; Admin Dose 17 GM; Start 09/14/18 at 09:00 Levothyroxine Sodium (Synthroid) 50 mcg BEFORE BREAKFAST PO Last administered on 09/17/18at 05:56; Admin Dose 50 MCG; Start 09/14/18 at 07:00 Diphenhydramine HCl (Benadryl) 25 mg Q6H PRN IV ITCHING; Start 09/13/18 at 21 :30; Stop 09/19/18 at 21:30 Sodium Biphosphate/ Sodium Phosphate (Fleet Enema) 133 ml DAILY PRN [place] CONSTIPATION; Start 09/13/18 at 22:00 Bisacodyl (Dulcolax Supp) 10 mg DAILY PRN [place] CONSTIPATION Last administered on 09/14/18at 20:30; Admin Dose 10 MG; Start 09/14/18 at 11:00 Al Hydrox/Mg Hydrox/Simethicone (Mag-Al Plus) 30 ml Q4H PRN PO GASTROINTESTINAL UPSET; Start 09/17/18 at 12:00 Assessment/Plan Hospital Course (Demo Recall) Assessment/Plan: 73 yo woman no major PMH presents after ovarian debulking surgery. #Ovarian cancer- status post debulking surgery postop day # 6. -Continue current pain control medications, follow-up primary team recommendation #Postoperative ileus-improving, patient is at high risk of ileus after intraperitoneal surgery on high doses of opiate analgesics. -For now continue diet per primary team recommendations - [place] enemas and stimulants as needed #Postoperative pain- Agree with opioid analgesia as ordered by surgery. -Continue PT/OT #Hypothyroidism - Patient should continue daily thyroid replacement #Anemia -Monitor, consider transfuse pRBCs for symptomatic anemia or if Hgb drops to <7. #DVT prophylaxis - In case of prolonged immobility, consider prophylactic enoxaparin 40mg daily when okay from surgical perspective. Patient is at high risk of venous thromboembolism. Thank you for the consult. We will continue to follow. TOMA DAMON Sep 17, 2018 12:20
[2018-09-17] MEDS ORDERED: SENNA TAB PO PRN (12:30)
[2018-09-17] MEDS ORDERED: POLYETHYLENE GLYCOL 17 GM PACKET PO PRN (12:30)
[2018-09-17 14:00] VITALS: BP 125/65; PULSE 98; RESP 18
[2018-09-17] MEDS: HYDROmorphONE 0.2 MG/ML PCA IV SCH (17:44)
[2018-09-17 20:08] VITALS: BP 136/65; PULSE 99; RESP 20
[2018-09-18 03:06] VITALS: BP 135/63; PULSE 100; RESP 17
[2018-09-18] MEDS: D5-NS + KCL 20 MEQ 1,000 ML IV SCH ×2 (04:25→16:36)
[2018-09-18] MEDS: AL HYDROX/MG HYDROX/SIMETH 30 ML CUP PO PRN ×3 (06:33→22:02)
[2018-09-18] MEDS: LEVOTHYROXINE 50 MCG TAB PO SCH (06:33)
[2018-09-18 07:35] VITALS: BP 116/62; PULSE 99; RESP 18
[2018-09-18] MEDS: FAMOTIDINE 20 MG INJ IV SCH (08:58)
[2018-09-18 14:29] VITALS: BP 107/64; PULSE 96; RESP 18
--- NOTE | 2018-09-18 17:28 | PN ---
Date/Time of Note Date/Time of Note DATE: 09/18/18 TIME: 17:27 Assessment/Plan VTE Prophylaxis Risk score (from Nsg)>0 risk: 8 SCD applied (from Nsg): Yes Pharmacological prophylaxis: LMWH, other Lines/Catheters IV Catheter Type (from Nrsg): PICC Line Central line still needed: No Urinary Cath still in place: No Assessment/Plan Hospital Course POD #7 Assessment/Plan Advance diet, Med Onc consult. Result Diagram: 09/17/1845109/17/18451 Subjective 24 Hr Interval Summary Free Text/Dictation + BM, abdominal discomfort Exam/Review of Systems Exam Vitals Vital Signs Date Temp Pulse Resp B/P (MAP) Pulse Ox O2 O2 Flow FiO2 Time Delivery Rate 09/18/18 16 17:00 09/18/18 98.0 96 107/64 97 Room Air 14:29 (78) 09/14/18 2.0 19:47 Intake and Output 09/17/18 09/17/18 09/18/18 1515:00 23:00 07:00 IntakeIntake Total 1000 ml 300 ml 1357.5 ml OutputOutput Total 80 ml 168 ml 65 ml BalanceBalance 920 ml 132 ml 1292.5 ml Gastrointestinal: soft Medications Medication Current Medications Acetaminophen/ Hydrocodone Bitart ([place] (5/325)) 1 tab Q6H PRN PO PAIN LEVEL 6-10 Last administered on 09/12/18 12:25; Admin Dose 1 TAB; Start 09/11/18 at 17:30 Acetaminophen/ Hydrocodone Bitart ([place] (10/325)) 1 tab Q6H PRN PO PAIN Last administered on 09/12/18at 21:35; Admin Dose 1 TAB; Start 09/11/18 at 17:30 Acetaminophen (Tylenol Tab) 650 mg Q6H PRN PO MILD PAIN(1-3)OR ELEVATED TEMP; Start 09/11/18 at 17:30 Potassium Chloride/Dextrose/ Sod Cl 1,000 ml @ 75 mls/hr [id number] IV Last administered on 09/18/18at 16:36; Admin Dose 75 MLS/HR; Start 09/11/18 at 17:28 Ondansetron HCl (Zofran Inj) 4 mg Q6H PRN IV .NAUSEA/VOMITING Last administered on 09/17/18at 05:58; Admin Dose 4 MG; Start 09/11/18 at 17:00 Zolpidem Tartrate (Ambien) 5 mg HS MAY REPEAT X 1 PRN PO .INSOMNIA; Start 09/11/18 at 17:00 Naloxone HCl (Narcan) 0.2 mg Q2M PRN IV .RESP RATE; Start 09/11/18 at 17:00 Hydromorphone HCl (Dilaudid WELL BLOWER) 0 MG/HR CONTINUOUS RATE 0.... Q4PCA IV Last administered on 09/17/18at 17:44; Admin Dose 6 MG; Start 09/12/18 at 20:00 Levothyroxine Sodium (Synthroid) 50 mcg BEFORE BREAKFAST PO Last administered on 09/18/18at 06:33; Admin Dose 50 MCG; Start 09/14/18 at 07:00 Diphenhydramine HCl (Benadryl) 25 mg Q6H PRN IV ITCHING; Start 09/13/18 at 21:30; Stop 09/19/18 at 21:30 Sodium Biphosphate/ Sodium Phosphate (Fleet Enema) 133 ml DAILY PRN [place] CONSTIPATION; Start 09/13/18 at 22:00 Bisacodyl (Dulcolax Supp) 10 mg DAILY PRN [place] CONSTIPATION Last administered on 09/14/18at 20:30; Admin Dose 10 MG; Start 09/14/18 at 11:00 Al Hydrox/Mg Hydrox/Simethicone (Mag-Al Plus) 30 ml Q4H PRN PO GASTROINTESTINAL UPSET Last administered on 09/18/18at 06:33; Admin Dose 30 ML; Start 09/17/18 at 12:00 Polyethylene Glycol (Miralax) 17 gm DAILY PRN [place] CONSTIPATION; Start 09/17/18 at 12:30 Senna (Senokot) 2 tab BID PRN PO CONSTIPATION; Start 09/17/18 at 12:30 Famotidine (Pepcid) 20 mg DAILY PO ; Start 09/19/18 at 09:00 VIRGINIA COTE MD Sep 18, 2018 17:28
[2018-09-18] MEDS: HYDROmorphONE 0.2 MG/ML PCA IV SCH (19:55)
[2018-09-18] MEDS: ONDANSETRON 4 MG INJ IV PRN (20:03)
[2018-09-18 20:32] VITALS: BP 117/70; PULSE 92; RESP 20
--- NOTE | 2018-09-18 23:19 | CONS ---
Consult Date/Type/Reason Admit Date/Time Sep 11, 2018 at 10:17 Initial Consult Date 09/13/18 Requesting Provider: VIRGINIA COTE MD Date/Time of Note DATE: 09/18/18 TIME: 23:15 Subjective Seen by Mission Systems Engineer Onc team earlier, no acute events overnight. Objective Vitals Vital Signs Date Temp Pulse Resp B/P (MAP) Pulse Ox O2 O2 Flow FiO2 Time Delivery Rate 09/18/18 98.3 92 20 117/70 96 Room Air 20:32 (86) 09/14/18 2.0 19:47 Intake and Output 09/17/18 09/17/18 09/18/18 1515:00 23:00 07:00 IntakeIntake Total 1000 ml 300 ml 1357.5 ml OutputOutput Total 80 ml 168 ml 65 ml BalanceBalance 920 ml 132 ml 1292.5 ml Exam Gen- NAD Heent - Perrl Eomi Neck: supple Res: Cta/bl CV- S1, S2 GI-MARQUEZ drain in place Neuro- no focal deficits Results/Medications Result Diagram: 09/17/1845109/17/18 045 Home Meds Reported Medications Levothyroxine Sodium* (Levothyroxine Sodium*) 50 Mcg Tablet, 50 MCG PO BEFORE BREAKFAST, #30 TAB 09/11/18 Medications Current Medications Acetaminophen/ Hydrocodone Bitart ([place] (5/325)) 1 tab Q6H PRN PO PAIN LEVEL 6-10 Last administered on 09/12/18at 12:25; Admin Dose 1 TAB; Start 09/11/18 at 17:30 Acetaminophen/ Hydrocodone Bitart ([place] (10/325)) 1 tab Q6H PRN PO PAIN Last administered on 09/12/18at 21:35; Admin Dose 1 TAB; Start 09/11/18 at 17:30 Acetaminophen (Tylenol Tab) 650 mg Q6H PRN PO MILD PAIN(1-3)OR ELEVATED TEMP; Start 09/11/18 at 17:30 Potassium Chloride/Dextrose/ Sod Cl 1,000 ml @ 75 mls/hr [id number] IV Last administered on 09/18/18at 16:36; Admin Dose 75 MLS/HR; Start 09/11/18 at 17:28 Ondansetron HCl (Zofran Inj) 4 mg Q6H PRN IV .NAUSEA/VOMITING Last administered on 09/18/18at 20:03; Admin Dose 4 MG; Start 09/11/18 at 17:00 Zolpidem Tartrate (Ambien) 5 mg HS MAY REPEAT X 1 PRN PO .INSOMNIA; Start 09/11/18 at 17:00 Naloxone HCl (Narcan) 0.2 mg Q2M PRN IV .RESP RATE; Start 09/11/18 at 17:00 Hydromorphone HCl (Dilaudid ECHO TECHNICIAN) 0 MG/HR CONTINUOUS RATE 0.... Q4PCA IV Last administered on 09/18/18at 19:55; Admin Dose 6 MG; Start 09/12/18 at 20:00 Levothyroxine Sodium (Synthroid) 50 mcg BEFORE BREAKFAST PO Last administered on 09/18/18at 06:33; Admin Dose 50 MCG; Start 09/14/18 at 07:00 Diphenhydramine HCl (Benadryl) 25 mg Q6H PRN IV ITCHING; Start 09/13/18 at 21:30; Stop 09/19/18 at 21:30 Sodium Biphosphate/ Sodium Phosphate (Fleet Enema) 133 ml DAILY PRN [place] CONSTIPATION; Start 09/13/18 at 22:00 Bisacodyl (Dulcolax Supp) 10 mg DAILY PRN [place] CONSTIPATION Last administered on 09/14/18at 20:30; Admin Dose 10 MG; Start 09/14/18 at 11:00 Al Hydrox/Mg Hydrox/Simethicone (Mag-Al Plus) 30 ml Q4H PRN PO GASTROINTESTINAL UPSET Last administered on 09/18/18at 22:02; Admin Dose 30 ML; Start 09/17/18 at 12:00 Polyethylene Glycol (Miralax) 17 gm DAILY PRN [place] CONSTIPATION; Start 09/17/18 at 12:30 Senna (Senokot) 2 tab BID PRN PO CONSTIPATION; Start 09/17/18 at 12:30 Famotidine (Pepcid) 20 mg DAILY PO ; Start 09/19/18 at 09:00 Assessment/Plan Hospital Course (Demo Recall) Assessment/Plan: 73 yo woman no major PMH presents after ovarian debulking surgery. #Ovarian cancer- status post debulking surgery postop day # 7. -Continue current pain control medications, follow-up primary team recommendation #Postoperative ileus-improving, patient is at high risk of ileus after intraperitoneal surgery on high doses of opiate analgesics. -For now continue diet per primary team recommendations - [place] enemas and stimulants as needed #Postoperative pain- Agree with opioid analgesia as ordered by surgery. -Continue PT/OT #Hypothyroidism - Patient should continue daily thyroid replacement #Anemia -Monitor, consider transfuse pRBCs for symptomatic anemia or if Hgb drops to <7. #DVT prophylaxis - In case of prolonged immobility, consider prophylactic enoxaparin 40mg daily when okay from surgical perspective. Patient is at high risk of venous thromboembolism. Thank you for the consult. We will continue to follow. TOMA DAMON Sep 18, 2018 23:19
[2018-09-19] MEDS: AL HYDROX/MG HYDROX/SIMETH 30 ML CUP PO PRN (01:31)
[2018-09-19 02:23] VITALS: BP 115/72; PULSE 90; RESP 17
[2018-09-19] MEDS: D5-NS + KCL 20 MEQ 1,000 ML IV SCH ×2 (06:14→19:48)
[2018-09-19] MEDS: LEVOTHYROXINE 50 MCG TAB PO SCH (06:14)
[2018-09-19 07:55] VITALS: BP 128/56; PULSE 101; RESP 20
[2018-09-19] MEDS: FAMOTIDINE 20 MG TAB PO SCH (09:27)
--- NOTE | 2018-09-19 10:39 | PN ---
Date/Time of Note Date/Time of Note DATE: 09/19/18 TIME: 10:38 Assessment/Plan VTE Prophylaxis Risk score (from Nsg)>0 risk: 13 SCD applied (from Nsg): Yes Pharmacological prophylaxis: LMWH, other Lines/Catheters IV Catheter Type (from Nrsg): PICC Line Central line still needed: No Urinary Cath still in place: No Assessment/Plan Hospital Course POD #8 Assessment/Plan Increase diet, on Lovenox. Consult Med Onc Result Diagram: 09/17/1845109/17/18451 Subjective 24 Hr Interval Summary Free Text/Dictation Minimal PO intake, + diarhhrea Exam/Review of Systems Exam Vitals Vital Signs Date Temp Pulse Resp B/P (MAP) Pulse Ox O2 O2 Flow FiO2 Time Delivery Rate 09/19/18 08:35 09/19/18 98.0 101 128/56 91 Room Air 07:55 (80) Intake and Output 09/18/18 09/18/18 09/19/18 1515:00 23:00 07:00 IntakeIntake Total 680 ml 1300 ml 1238 ml OutputOutput Total 45 ml 110 ml 65 ml BalanceBalance 635 ml 1190 ml 1173 ml Gastrointestinal: soft Medications Medication Current Medications Acetaminophen/ Hydrocodone Bitart ([place] (5/325)) 1 tab Q6H PRN PO PAIN LEVEL 6-10 Last administered on 09/12/18 12:25; Admin Dose 1 TAB; Start 09/11/18 at 17:30 Acetaminophen/ Hydrocodone Bitart ([place] (10/325)) 1 tab Q6H PRN PO PAIN Last administered on 09/12/18 21:35; Admin Dose 1 TAB; Start 09/11/18 at 17:30 Acetaminophen (Tylenol Tab) 650 mg Q6H PRN PO MILD PAIN(1-3)OR ELEVATED TEMP; Start 09/11/18 at 17:30 Potassium Chloride/Dextrose/ Sod Cl 1,000 ml @ 75 mls/hr [id number] IV Last administered on 09/19/18 06:14; Admin Dose 75 MLS/HR; Start 09/11/18 at 17:28 Ondansetron HCl (Zofran Inj) 4 mg Q6H PRN IV .NAUSEA/VOMITING Last administered on 09/18/18 20:03; Admin Dose 4 MG; Start 09/11/18 at 17:00 Zolpidem Tartrate (Ambien) 5 mg HS MAY REPEAT X 1 PRN PO .INSOMNIA; Start 09/11/18 at 17:00 Naloxone HCl (Narcan) 0.2 mg Q2M PRN IV .RESP RATE; Start 09/11/18 at 17:00 Hydromorphone HCl (Dilaudid Z OS MAINFRAME SYSTEMS PROGRAMMER) 0 MG/HR CONTINUOUS RATE 0.... Q4PCA IV Last administered on 09/18/18at 19:55; Admin Dose 6 MG; Start 09/12/18 at 20:00 Levothyroxine Sodium (Synthroid) 50 mcg BEFORE BREAKFAST PO Last administered on 09/19/18 06:14; Admin Dose 50 MCG; Start 09/14/18 at 07:00 Diphenhydramine HCl (Benadryl) 25 mg Q6H PRN IV ITCHING; Start 09/13/18 at 21:30; Stop 09/19/18 at 21:30 Sodium Biphosphate/ Sodium Phosphate (Fleet Enema) 133 ml DAILY PRN [place] CONSTIPATION; Start 09/13/18 at 22:00 Bisacodyl (Dulcolax Supp) 10 mg DAILY PRN [place] CONSTIPATION Last administered on 09/14/18at 20:30; Admin Dose 10 MG; Start 09/14/18 at 11:00 Al Hydrox/Mg Hydrox/Simethicone (Mag-Al Plus) 30 ml Q4H PRN PO GASTROINTESTINAL UPSET Last administered on 09/19/18at 01:31; Admin Dose 30 ML; Start 09/17/18 at 12:00 Polyethylene Glycol (Miralax) 17 gm DAILY PRN PO CONSTIPATION; Start 09/17/18 at 12:30 Senna (Senokot) 2 tab BID PRN PO CONSTIPATION; Start 09/17/18 at 12:30 Famotidine (Pepcid) 20 mg DAILY PO Last administered on 09/19/18at 09:27; Admin Dose 20 MG; Start 09/19/18 at 09:00 VIRGINIA COTE MD Sep 19, 2018 10:39
--- NOTE | 2018-09-19 13:05 | CONS ---
Consult Date/Type/Reason Admit Date/Time Sep 11, 2018 at 10:17 Initial Consult Date 09/13/18 Requesting Provider: VIRGINIA COTE MD Date/Time of Note DATE: 09/19/18 TIME: 13:03 Subjective No acute events overnight, seen by EQUALIZER OPERATOR Onc team earlier today. Objective Vitals Vital Signs Date Temp Pulse Resp B/P (MAP) Pulse Ox O2 O2 Flow FiO2 Time Delivery Rate 09/19/18 20 08:35 09/19/18 98.0 101 128/56 91 Room Air 07:55 (80) Intake and Output 09/18/18 09/18/18 09/19/18 1515:00 23:00 07:00 IntakeIntake Total 680 ml 1300 ml 1238 ml OutputOutput Total 45 ml 110 ml 65 ml BalanceBalance 635 ml 1190 ml 1173 ml Exam Gen: Obese woman lying in bed, NAD, family at bedside Eyes: PERRL, no icterus HEENT: PERRLA, EOMI Neck: R neck IJ line in place, no lymphadenopathy Card: Regular rate and rhythm, no murmurs Pulm: Clear to auscultation bilaterally Abd:. Midline surgical dressing clean/dry/intact. RLQ MARQUEZ drain with scant serosanguineous output. Nontender to light palpation throughout. Ext: R>L knee nodularity and arthritis. Otherwise no edema. Results/Medications Result Diagram: 09/17/18 0452 09/17/18 0452 Home Meds Reported Medications Levothyroxine Sodium* (Levothyroxine Sodium*) 50 Mcg Tablet, 50 MCG PO BEFORE BREAKFAST, #30 TAB 09/11/18 Medications Current Medications Acetaminophen/ Hydrocodone Bitart ([place] (5/325)) 1 tab Q6H PRN PO PAIN LEVEL 6-10 Last administered on 09/12/18at 12:25; Admin Dose 1 TAB; Start 09/11/18 at 17:30 Acetaminophen/ Hydrocodone Bitart ([place] (10/325)) 1 tab Q6H PRN PO PAIN Last administered on 09/12/18at 21:35; Admin Dose 1 TAB; Start 09/11/18 at 17:30 Acetaminophen (Tylenol Tab) 650 mg Q6H PRN PO MILD PAIN(1-3)OR ELEVATED TEMP; Start 09/11/18 at 17:30 Potassium Chloride/Dextrose/ Sod Cl 1,000 ml @ 75 mls/hr [id number] IV Last administered on 09/19/18 06:14; Admin Dose 75 MLS/HR; Start 09/11/18 at 17:28 Ondansetron HCl (Zofran Inj) 4 mg Q6H PRN IV .NAUSEA/VOMITING Last administered on 09/18/18 20:03; Admin Dose 4 MG; Start 09/11/18 at 17:00 Zolpidem Tartrate (Ambien) 5 mg HS MAY REPEAT X 1 PRN PO .INSOMNIA; Start 09/11/18 at 17:00 Naloxone HCl (Narcan) 0.2 mg Q2M PRN IV .RESP RATE; Start 09/11/18 at 17:00 Hydromorphone HCl (Dilaudid RELAYS DRAFTSPERSON) 0 MG/HR CONTINUOUS RATE 0.... Q4PCA IV Last administered on 09/18/18 19:55; Admin Dose 6 MG; Start 09/12/18 at 20:00 Levothyroxine Sodium (Synthroid) 50 mcg BEFORE BREAKFAST PO Last administered on 09/19/18 06:14; Admin Dose 50 MCG; Start 09/14/18 at 07:00 Diphenhydramine HCl (Benadryl) 25 mg Q6H PRN IV ITCHING; Start 09/13/18 at 21:30; Stop 09/19/18 at 21:30 Sodium Biphosphate/ Sodium Phosphate (Fleet Enema) 133 ml DAILY PRN [place] CONSTIPATION; Start 09/13/18 at 22:00 Bisacodyl (Dulcolax Supp) 10 mg DAILY PRN [place] CONSTIPATION Last administered on 09/14/18at 20:30; Admin Dose 10 MG; Start 09/14/18 at 11:00 Al Hydrox/Mg Hydrox/Simethicone (Mag-Al Plus) 30 ml Q4H PRN PO GASTROINTESTINAL UPSET Last administered on 09/19/18 01:31; Admin Dose 30 ML; Start 09/17/18 at 12:00 Polyethylene Glycol (Miralax) 17 gm DAILY PRN PO CONSTIPATION; Start 09/17/18 at 12:30 Senna (Senokot) 2 tab BID PRN PO CONSTIPATION; Start 09/17/18 at 12:30 Famotidine (Pepcid) 20 mg DAILY PO Last administered on 3/15/19at 09:27; Admin Dose 20 MG; Start 09/19/18 at 09:00 Assessment/Plan Hospital Course (Demo Recall) Assessment/Plan: 73 yo woman no major PMH presents after ovarian debulking surgery. #Ovarian cancer- status post debulking surgery postop day # 8. -Continue current pain control medications, follow-up primary team recommendation #Postoperative ileus-improving, patient is at high risk of ileus after intraperitoneal surgery on high doses of opiate analgesics. -For now continue diet per primary team recommendations - [place] enemas and stimulants as needed #Postoperative pain- Agree with opioid analgesia as ordered by surgery. -Continue PT/OT #Hypothyroidism - Patient should continue daily thyroid replacement #Anemia -Monitor, consider transfuse pRBCs for symptomatic anemia or if Hgb drops to <7. #DVT prophylaxis - In case of prolonged immobility, consider prophylactic enoxaparin 40mg daily when okay from surgical perspective. Patient is at high risk of venous thromboembolism. Thank you for the consult. We will continue to follow. TOMA DAMON Sep 19, 2018 13:04
[2018-09-19 14:19] VITALS: BP 126/62; PULSE 99; RESP 18
[2018-09-19 19:55] VITALS: BP 119/71; PULSE 99; RESP 20
[2018-09-20] MEDS ORDERED: AL HYDROX/MG HYDROX/SIMETH 30 ML CUP PO PRN
[2018-09-20] MEDS: AL HYDROX/MG HYDROX/SIMETH 30 ML CUP PO PRN ×2 (00:40→08:14)
[2018-09-20 01:30] VITALS: BP 119/63; PULSE 114; RESP 20
[2018-09-20 01:40] VITALS: PULSE 100
[2018-09-20] MEDS: LEVOTHYROXINE 50 MCG TAB PO SCH (06:53)
[2018-09-20 08:03] VITALS: BP 108/58; PULSE 104; RESP 18
[2018-09-20] MEDS: CALCIUM CARBONATE 500 MG CHEW TAB PO PRN ×2 (08:14→18:35)
[2018-09-20] MEDS: FAMOTIDINE 20 MG TAB PO SCH (08:14)
[2018-09-20] MEDS: HYDROmorphONE 0.2 MG/ML PCA IV SCH (08:20)
--- NOTE | 2018-09-20 09:29 | CONS ---
Consult Date/Type/Reason Admit Date/Time Sep 11, 2018 at 10:17 Initial Consult Date 09/13/18 Requesting Provider: VIRGINIA COTE MD Date/Time of Note DATE: 09/20/18 TIME: 09:27 Subjective Per nursing staff, patient complaining of some mild abdominal pain when eating, burning in nature. Patient is however on Tums and milk of magnesium as needed. No other acute events overnight otherwise. Objective Vitals Vital Signs Date Temp Pulse Resp B/P (MAP) Pulse Ox O2 O2 Flow FiO2 Time Delivery Rate 09/20/18 18 08:44 09/20/18 98.3 104 108/58 99 Room Air 08:03 (75) Intake and Output 09/19/18 09/19/18 09/20/18 1515:00 23:00 07:00 IntakeIntake Total 200 ml 250 ml OutputOutput Total 50 ml 430 ml BalanceBalance 150 ml -180 ml Exam Gen: Obese woman lying in bed, NAD Eyes: PERRL, no icterus HEENT: PERRLA, EOMI Neck: R neck IJ line in place, no lymphadenopathy Card: Regular rate and rhythm, no murmurs Pulm: Clear to auscultation bilaterally Abd:. Midline surgical dressing clean/dry/intact. RLQ MARQUEZ drain with scant serosanguineous output. Nontender to light palpation throughout. Ext: R>L knee nodularity and arthritis. Otherwise no edema. Results/Medications Result Diagram: 09/20/18 0419 09/20/18 0419 Results 24 hrs Laboratory Tests Test 09/20/18 04:19 White Blood Count 9.0 Red Blood Count 2.84 L Hemoglobin 9.1 L Hematocrit 27.7 L Mean Corpuscular Volume 97.5 Mean Corpuscular Hemoglobin 32.0 Mean Corpuscular Hemoglobin Concent 32.9 Red Cell Distribution Width 11.7 Platelet Count 333 Mean Platelet Volume 9.8 Immature Granulocytes % 1.900 H Neutrophils % 67.0 Lymphocytes % 19.2 Monocytes % 9.8 Eosinophils % 1.8 Basophils % 0.3 Nucleated Red Blood Cells % 0.0 Immature Granulocytes # 0.170 H Neutrophils # 6.1 Lymphocytes # 1.7 Monocytes # 0.9 Eosinophils # 0.2 Basophils # 0.0 Nucleated Red Blood Cells # 0.0 Sodium Level 134 L Potassium Level 4.0 Chloride Level 100 Carbon Dioxide Level 28 Anion Gap 6 Blood Urea Nitrogen 4 L Creatinine 0.68 Est Glomerular Filtrat Rate mL/min Glucose Level 114 Calcium Level 7.9 L Home Meds Reported Medications Levothyroxine Sodium* (Levothyroxine Sodium*) 50 Mcg Tablet, 50 MCG PO BEFORE BREAKFAST, #30 TAB 09/11/18 Medications Current Medications Acetaminophen/ Hydrocodone Bitart ([place] (5/325)) 1 tab Q6H PRN PO PAIN LEVEL 6-10 Last administered on 09/12/18 12:25; Admin Dose 1 TAB; Start 09/11/18 at 17:30 Acetaminophen/ Hydrocodone Bitart ([place] (10/325)) 1 tab Q6H PRN PO PAIN Last administered on 09/12/18 21:35; Admin Dose 1 TAB; Start 09/11/18 at 17:30 Acetaminophen (Tylenol Tab) 650 mg Q6H PRN PO MILD PAIN(1-3)OR ELEVATED TEMP; Start 09/11/18 at 17:30 Potassium Chloride/Dextrose/ Sod Cl 1,000 ml @ 75 mls/hr [id number] IV Last administered on 09/19/18 19:48; Admin Dose 75 MLS/HR; Start 09/11/18 at 17:28 Ondansetron HCl (Zofran Inj) 4 mg Q6H PRN IV .NAUSEA/VOMITING Last administered on 09/18/18 20:03; Admin Dose 4 MG; Start 09/11/18 at 17:00 Zolpidem Tartrate (Ambien) 5 mg HS MAY REPEAT X 1 PRN PO .INSOMNIA; Start 09/11/18 at 17:00 Naloxone HCl (Narcan) 0.2 mg Q2M PRN IV .RESP RATE; Start 09/11/18 at 17:00 Hydromorphone HCl (Dilaudid MAIL DISTRIBUTION SCHEME EXAMINER) 0 MG/HR CONTINUOUS RATE 0.... Q4PCA IV Last administered on 09/20/18 08:20; Admin Dose 6 MG; Start 09/12/18 at 20:00 Levothyroxine Sodium (Synthroid) 50 mcg BEFORE BREAKFAST PO Last administered on 09/20/18 06:53; Admin Dose 50 MCG; Start 09/14/18 at 07:00 Sodium Biphosphate/ Sodium Phosphate (Fleet Enema) 133 ml DAILY PRN [place] CONSTIPATION; Start 09/13/18 at 22:00 Bisacodyl (Dulcolax Supp) 10 mg DAILY PRN [place] CONSTIPATION Last administered on 09/14/18at 20:30; Admin Dose 10 MG; Start 09/14/18 at 11:00 Al Hydrox/Mg Hydrox/Simethicone (Mag-Al Plus) 30 ml Q4H PRN PO GASTROINTESTINAL UPSET Last administered on 09/20/18at 08:14; Admin Dose 30 ML; Start 09/17/18 at 12:00 Polyethylene Glycol (Miralax) 17 gm DAILY PRN PO CONSTIPATION; Start 09/17/18 at 12:30 Senna (Senokot) 2 tab BID PRN PO CONSTIPATION; Start 09/17/18 at 12:30 Famotidine (Pepcid) 20 mg DAILY PO Last administered on 09/20/18at 08:14; Admin Dose 20 MG; Start 09/19/18 at 09:00 Al Hydrox/Mg Hydrox/Simethicone (Mag-Al Plus) 30 ml Q6H PRN PO GASTROINTESTINAL UPSET; Start 09/20/18 at 00:00 Calcium Carbonate (Tums) 500 mg Q4 PRN PO heartburn Last administered on 09/20/18at 08:14; Admin Dose 500 MG; Start 09/20/18 at 00:00 Assessment/Plan Hospital Course (Demo Recall) Assessment/Plan: 73 yo woman no major PMH presents after ovarian debulking surgery. #Ovarian cancer- status post debulking surgery postop day # 9. -Continue current pain control medications, follow-up primary team recommendation -it appears they are in the process of trying to contact hematology oncology team as well. #Postoperative ileus-improving, patient is at high risk of ileus after intraperitoneal surgery on high doses of opiate analgesics. -For now continue diet per primary team recommendations - [place] enemas and stimulants as needed #Postoperative pain- Agree with opioid analgesia as ordered by surgery. -Continue PT/OT #Hypothyroidism - Patient should continue daily thyroid replacement #Anemia -Monitor, consider transfuse pRBCs for symptomatic anemia or if Hgb drops to <7. #DVT prophylaxis - In case of prolonged immobility, consider prophylactic enoxaparin 40mg daily when okay from surgical perspective. Patient is at high risk of venous thromboembolism. Thank you for the consult. We will continue to follow. TOMA DAMON Sep 20, 2018 09:29
[2018-09-20] MEDS: D5-NS + KCL 20 MEQ 1,000 ML IV SCH ×2 (10:25→23:38)
[2018-09-20 15:10] VITALS: BP 104/65; PULSE 103; RESP 18
[2018-09-20] MEDS ORDERED: LOPERAMIDE 2 MG CAP PO ONE (18:30)
[2018-09-20] MEDS: SUCRALFATE 1 GM TAB PO SCH ×2 (18:35→23:37)
[2018-09-20 19:40] VITALS: BP 112/59; PULSE 106; RESP 20
[2018-09-21] MEDS ORDERED: SUCRALFATE 1 GM TAB PO PRN
[2018-09-21 02:58] VITALS: BP 101/66; RESP 20
[2018-09-21] MEDS: ONDANSETRON 4 MG INJ IV PRN (05:44)
[2018-09-21] MEDS: SUCRALFATE 1 GM TAB PO SCH ×3 (05:44→18:57)
[2018-09-21] MEDS: LEVOTHYROXINE 50 MCG TAB PO SCH (06:41)
[2018-09-21 07:51] VITALS: BP 98/57; PULSE 98; RESP 18
[2018-09-21] MEDS: CALCIUM CARBONATE 500 MG CHEW TAB PO PRN (08:43)
[2018-09-21] MEDS: FAMOTIDINE 20 MG TAB PO SCH (08:43)
--- NOTE | 2018-09-21 09:48 | CONS ---
Consult Date/Type/Reason Admit Date/Time Sep 11, 2018 at 10:17 Initial Consult Date 09/13/18 Requesting Provider: VIRGINIA COTE MD Date/Time of Note DATE: 09/21/18 TIME: 09:47 Subjective Still with some epigastric pain when eating food, slightly improved after Carafate started yesterday. Objective Vitals Vital Signs Date Temp Pulse Resp B/P (MAP) Pulse Ox O2 O2 Flow FiO2 Time Delivery Rate 09/21/18 16 08:45 09/21/18 98.7 98 98/57 (71) 93 07:51 09/21/18 Room Air 02:58 Intake and Output 09/20/18 09/20/18 09/21/18 1515:00 23:00 07:00 IntakeIntake Total 1400 ml 1500 ml 650 ml OutputOutput Total 35 ml 30 ml 30 ml BalanceBalance 1365 ml 1470 ml 620 ml Exam Gen: Obese woman lying in bed, NAD Eyes: PERRL, no icterus HEENT: PERRLA, EOMI Neck: R neck IJ line in place, no lymphadenopathy Card: Regular rate and rhythm, no murmurs Pulm: Clear to auscultation bilaterally Abd:. Midline surgical dressing clean/dry/intact. RLQ MARQUEZ drain with scant serosanguineous output. Nontender to light palpation throughout. Ext: R>L knee nodularity and arthritis. Otherwise no edema. Results/Medications Result Diagram: 09/20/18 0419 09/20/18418 Home Meds Reported Medications Levothyroxine Sodium* (Levothyroxine Sodium*) 50 Mcg Tablet, 50 MCG PO BEFORE BREAKFAST, #30 TAB 09/11/18 Medications Current Medications Acetaminophen/ Hydrocodone Bitart ([place] (5/325)) 1 tab Q6H PRN PO PAIN LEVEL 6-10 Last administered on 09/12/18at 12:25; Admin Dose 1 TAB; Start 09/11/18 at 17:30 Acetaminophen/ Hydrocodone Bitart ([place] (10/325)) 1 tab Q6H PRN PO PAIN Last administered on 09/12/18at 21:35; Admin Dose 1 TAB; Start 09/11/18 at 17:30 Acetaminophen (Tylenol Tab) 650 mg Q6H PRN PO MILD PAIN(1-3)OR ELEVATED TEMP; Start 09/11/18 at 17:30 Potassium Chloride/Dextrose/ Sod Cl 1,000 ml @ 75 mls/hr [id number] IV Last administered on 09/20/18at 23:38; Admin Dose 75 MLS/HR; Start 09/11/18 at 17:28 Ondansetron HCl (Zofran Inj) 4 mg Q6H PRN IV .NAUSEA/VOMITING Last administered on 09/21/18 05:44; Admin Dose 4 MG; Start 09/11/18 at 17:00 Zolpidem Tartrate (Ambien) 5 mg HS MAY REPEAT X 1 PRN PO .INSOMNIA; Start 09/11/18 at 17:00 Naloxone HCl (Narcan) 0.2 mg Q2M PRN IV .RESP RATE; Start 09/11/18 at 17:00 Hydromorphone HCl (Dilaudid DRESS SHOE INSPECTOR) 0 MG/HR CONTINUOUS RATE 0.... Q4PCA IV Last administered on 09/20/18 08:20; Admin Dose 6 MG; Start 09/12/18 at 20:00 Levothyroxine Sodium (Synthroid) 50 mcg BEFORE BREAKFAST PO Last administered on 09/21/18 06:41; Admin Dose 50 MCG; Start 09/14/18 at 07:00 Sodium Biphosphate/ Sodium Phosphate (Fleet Enema) 133 ml DAILY PRN [place] CONSTIPATION; Start 09/13/18 at 22:00 Bisacodyl (Dulcolax Supp) 10 mg DAILY PRN [place] CONSTIPATION Last administered on 09/14/18at 20:30; Admin Dose 10 MG; Start 09/14/18 at 11:00 Polyethylene Glycol (Miralax) 17 gm DAILY PRN PO CONSTIPATION; Start 09/17/18 at 12:30 Senna (Senokot) 2 tab BID PRN PO CONSTIPATION; Start 09/17/18 at 12:30 Famotidine (Pepcid) 20 mg DAILY PO Last administered on 09/21/18 08:43; Admin Dose 20 MG; Start 09/19/18 at 09:00 Al Hydrox/Mg Hydrox/Simethicone (Mag-Al Plus) 30 ml Q6H PRN PO GASTROINTESTINAL UPSET; Start 09/20/18 at 00:00 Calcium Carbonate (Tums) 500 mg Q4 PRN PO heartburn Last administered on 3/17/19at 08:43; Admin Dose 500 MG; Start 09/20/18 at 00:00 Sucralfate (Carafate) 1 gm Q6 PO Last administered on 09/21/18at 05:44; Admin Dose 1 GM; Start 09/20/18 at 18:00; Stop 09/21/18 at 18:00 Sucralfate (Carafate) 1 gm Q6H PRN PO GI upset; Start 09/21/18 at 00:00 Assessment/Plan Hospital Course (Demo Recall) Assessment/Plan: 73 yo woman no major PMH presents after ovarian debulking surgery. #Ovarian cancer- status post debulking surgery postop day # 10. -Continue current pain control medications, follow-up primary team recommendation -it appears they are in the process of trying to contact hematology oncology team as well - Dr Acosta now going to be contacted. - now on Carafate for epigastric pain, GI consult also pending. #Postoperative ileus-improving, patient is at high risk of ileus after intraperitoneal surgery on high doses of opiate analgesics. - For now continue diet per primary team recommendations - [place] enemas and stimulants as needed #Postoperative pain- Agree with opioid analgesia as ordered by surgery. -Continue PT/OT #Hypothyroidism - Patient should continue daily thyroid replacement #Anemia -Monitor, consider transfuse pRBCs for symptomatic anemia or if Hgb drops to <7. #DVT prophylaxis - In case of prolonged immobility, consider prophylactic enoxaparin 40mg daily when okay from surgical perspective. Patient is at high risk of venous thromboembolism. Thank you for the consult. We will continue to follow. TOMA DAMON Sep 21, 2018 09:48
--- NOTE | 2018-09-21 12:08 | CONS ---
Assessment/Plan Assessment/Plan Hospital Course (Demo Recall) Assessment: Dysphagia/odynophagia Rule out GERD plus minus opportunistic infection Rule out PUD. History of ovarian CA post neoadjuvant chemotherapy plus surgical debulking Plan: PPI therapy. EGD tomorrow, patient was informed via translation of nature of procedure, potential risks benefits alternatives. She is agreeable to proceed Further recommendations depend on the patient's clinical course as well as endoscopic findings Consultation Date/Type/Reason Admit Date/Time Sep 11, 2018 at 10:17 Date of Consultation: Sep 21, 2018 Type of Consult Gastroenterology Reason for Consultation Dysphagia/retrosternal and epigastric pain Date/Time of Note DATE: 09/21/18 TIME: 12:02 Hx of Present Illness 73-year-old female status post surgery for ovarian cancer approximately 10 days prior. The patient has been complaining of significant difficulty with eating. Of the information is obtained via translation by patient's daughter. The description of the symptoms is severe dysphagia with solids liquids and even water with burning sensation in the retrosternal and epigastric area as the patient swallows. There has been episodes of vomiting which are nonbloody. There is no melena or hematochezia. Patient has moderate anemia which is multifactorial as she received recent neoadjuvant chemotherapy and had significant surgical procedure. At this time the patient will be evaluated endoscopically to determine the nature of her symptoms the possibility of opportunistic infection of the esophagus such as Samanta is high in the list. Further recommendation will depend on findings as well as patient's clinical course. Review of Systems: [A 12 system, review was conducted and is negative except as noted in the HPI or here.] Gastrointestinal and liver: [As noted in HPI] Past Medical History Ovarian CA. Home Meds Reported Medications Levothyroxine Sodium* (Levothyroxine Sodium*) 50 Mcg Tablet, 50 MCG PO BEFORE BREAKFAST, #30 TAB 09/11/18 Medications Current Medications Acetaminophen/ Hydrocodone Bitart ([place] (5/325)) 1 tab Q6H PRN PO PAIN LEVEL 6-10 Last administered on 09/12/18at 12:25; Admin Dose 1 TAB; Start 09/11/18 at 17:30 Acetaminophen/ Hydrocodone Bitart ([place] (10/325)) 1 tab Q6H PRN PO PAIN Last administered on 09/12/18at 21:35; Admin Dose 1 TAB; Start 09/11/18 at 17:30 Acetaminophen (Tylenol Tab) 650 mg Q6H PRN PO MILD PAIN(1-3)OR ELEVATED TEMP; Start 09/11/18 at 17:30 Potassium Chloride/Dextrose/ Sod Cl 1,000 ml @ 75 mls/hr [id number] IV Last administered on 09/20/18at 23:38; Admin Dose 75 MLS/HR; Start 09/11/18 at 17:28 Ondansetron HCl (Zofran Inj) 4 mg Q6H PRN IV .NAUSEA/VOMITING Last administered on 09/21/18at 05:44; Admin Dose 4 MG; Start 09/11/18 at 17:00 Zolpidem Tartrate (Ambien) 5 mg HS MAY REPEAT X 1 PRN PO .INSOMNIA; Start 09/11/18 at 17:00 Naloxone HCl (Narcan) 0.2 mg Q2M PRN IV .RESP RATE; Start 09/11/18 at 17:00 Hydromorphone HCl (Dilaudid MOLD MAKER PLASTER) 0 MG/HR CONTINUOUS RATE 0.... Q4PCA IV Last administered on 09/20/18at 08:20; Admin Dose 6 MG; Start 09/12/18 at 20:00 Levothyroxine Sodium (Synthroid) 50 mcg BEFORE BREAKFAST PO Last administered on 09/21/18at 06:41; Admin Dose 50 MCG; Start 09/14/18 at 07:00 Sodium Biphosphate/ Sodium Phosphate (Fleet Enema) 133 ml DAILY PRN [place] CONSTIPATION; Start 09/13/18 at 22:00 Bisacodyl (Dulcolax Supp) 10 mg DAILY PRN [place] CONSTIPATION Last administered on 09/14/18at 20:30; Admin Dose 10 MG; Start 09/14/18 at 11:00 Polyethylene Glycol (Miralax) 17 gm DAILY PRN PO CONSTIPATION; Start 09/17/18 at 12:30 Senna (Senokot) 2 tab BID PRN PO CONSTIPATION; Start 09/17/18 at 12:30 Famotidine (Pepcid) 20 mg DAILY PO Last administered on 09/21/18at 08:43; Admin Dose 20 MG; Start 09/19/18 at 09:00 Al Hydrox/Mg Hydrox/Simethicone (Mag-Al Plus) 30 ml Q6H PRN PO GASTROINTESTINAL UPSET; Start 09/20/18 at 00:00 Calcium Carbonate (Tums) 500 mg Q4 PRN PO heartburn Last administered on at 08:43; Admin Dose 500 MG; Start 09/20/18 at 00:00 Sucralfate (Carafate) 1 gm Q6 PO Last administered on 09/21/18at 05:44; Admin Dose 1 GM; Start 09/20/18 at 18:00; Stop 09/21/18 at 18:00 Sucralfate (Carafate) 1 gm Q6H PRN PO GI upset; Start 09/21/18 at 00:00 Allergies: Coded Allergies: lidocaine (Verified Allergy, Intermediate, THROAT ITCHY, 09/11/18) PER PT & RELATIVE Past Surgical History Surgical debulking for ovarian CA Family History Significant Family History: no pertinent family hx Social History Alcohol Use: rarely Smoking Status: Never smoker Drug Use: none Exam/Review of Systems Exam Vitals Vital Signs Date Temp Pulse Resp B/P (MAP) Pulse Ox O2 O2 Flow FiO2 Time Delivery Rate 09/21/18 16 08:45 09/21/18 98.7 98 98/57 (71) 93 07:51 09/21/18 Room Air 02:58 Intake and Output 09/20/18 09/20/18 09/21/18 1515:00 23:00 07:00 IntakeIntake Total 1400 ml 1500 ml 650 ml OutputOutput Total 35 ml 30 ml 30 ml BalanceBalance 1365 ml 1470 ml 620 ml Exam PHYSICAL EXAMINATION: GENERAL: Well developed, well nourished, obese, alert & oriented x 3, in no acute distress SKIN: No lesions, no stigmata chronic liver disease, no evidence of bleeding diathesis LYMPHATIC: No palpable lymphadenopathy. HEAD: Normocephalic, atraumatic, no tenderness. EYES: Pupils equal reactive to light and accommodation, full extraocular movements, sclera clear, non-icteric, no discharge. EARS/NOSE AND THROAT: Ears normal, nose normal, oropharynx normal, oral membranes well hydrated without lesions. NECK: Supple, no masses, thyroid normal, JVP within normal limits, carotids normal without bruits. CHEST: Inspection within normal limits. CARDIOVASCULAR: Heart: Regular rate and rhythm, no murmurs, gallops or rubs. Peripheral pulses present within normal limits, no cyanosis, clubbing or edemas. No pulsatile abdominal mass RESPIRATORY: Lungs clear to auscultation and percussion, no wheezing, no rubs GASTROINTESTINAL AND LIVER: Abdomen: Soft, moderate epigastric and diffuse abdominal tenderness, mildly distended, no hernias, no masses, no organomegaly, no ascites, no guarding, no rebound tenderness, normoactive bowel sounds. Rectal: Deferred. GENITOURINARY: [Female genitalia within normal limits.] EXTREMITIES: No cyanosis, clubbing or edema. Results Result Diagram: 09/20/1841809/20/18418 Medications Medication Current Medications Acetaminophen/ Hydrocodone Bitart ([place] (5/325)) 1 tab Q6H PRN PO PAIN LEVEL 6-10 Last administered on 09/12/18 12:25; Admin Dose 1 TAB; Start 09/11/18 at 17:30 Acetaminophen/ Hydrocodone Bitart ([place] (10/325)) 1 tab Q6H PRN PO PAIN Last administered on 09/12/18 21:35; Admin Dose 1 TAB; Start 09/11/18 at 17:30 Acetaminophen (Tylenol Tab) 650 mg Q6H PRN PO MILD PAIN(1-3)OR ELEVATED TEMP; Start 09/11/18 at 17:30 Potassium Chloride/Dextrose/ Sod Cl 1,000 ml @ 75 mls/hr [id number] IV Last administered on 09/20/18 23:38; Admin Dose 75 MLS/HR; Start 09/11/18 at 17:28 Ondansetron HCl (Zofran Inj) 4 mg Q6H PRN IV .NAUSEA/VOMITING Last administered on 09/21/18 05:44; Admin Dose 4 MG; Start 09/11/18 at 17:00 Zolpidem Tartrate (Ambien) 5 mg HS MAY REPEAT X 1 PRN PO .INSOMNIA; Start 09/11/18 at 17:00 Naloxone HCl (Narcan) 0.2 mg Q2M PRN IV .RESP RATE; Start 09/11/18 at 17:00 Hydromorphone HCl (Dilaudid MOLD MAKER PLASTER) 0 MG/HR CONTINUOUS RATE 0.... Q4PCA IV Last administered on 09/20/18 08:20; Admin Dose 6 MG; Start 09/12/18 at 20:00 Levothyroxine Sodium (Synthroid) 50 mcg BEFORE BREAKFAST PO Last administered on 09/21/18at 06:41; Admin Dose 50 MCG; Start 09/14/18 at 07:00 Sodium Biphosphate/ Sodium Phosphate (Fleet Enema) 133 ml DAILY PRN IA CONSTIPATION; Start 09/13/18 at 22:00 Bisacodyl (Dulcolax Supp) 10 mg DAILY PRN IA CONSTIPATION Last administered on 09/14/18at 20:30; Admin Dose 10 MG; Start 09/14/18 at 11:00 Polyethylene Glycol (Miralax) 17 gm DAILY PRN PO CONSTIPATION; Start 09/17/18 at 12:30 Senna (Senokot) 2 tab BID PRN PO CONSTIPATION; Start 09/17/18 at 12:30 Famotidine (Pepcid) 20 mg DAILY PO Last administered on 09/21/18at 08:43; Admin Dose 20 MG; Start 09/19/18 at 09:00 Al Hydrox/Mg Hydrox/Simethicone (Mag-Al Plus) 30 ml Q6H PRN PO GASTROINTESTINAL UPSET; Start 09/20/18 at 00:00 Calcium Carbonate (Tums) 500 mg Q4 PRN PO heartburn Last administered on at 08:43; Admin Dose 500 MG; Start 09/20/18 at 00:00 Sucralfate (Carafate) 1 gm Q6 PO Last administered on 09/21/18at 05:44; Admin Dose 1 GM; Start 09/20/18 at 18:00; Stop 09/21/18 at 18:00 Sucralfate (Carafate) 1 gm Q6H PRN PO GI upset; Start 09/21/18 at 00:00 CHAYA MURPHY MD Sep 21, 2018 12:08
[2018-09-21] MEDS: D5-NS + KCL 20 MEQ 1,000 ML IV SCH (13:13)
[2018-09-21 14:45] VITALS: BP 101/60; PULSE 105; RESP 18
[2018-09-21] MEDS: PANTOPRAZOLE 40 MG INJ IV SCH (18:57)
[2018-09-21 19:51] VITALS: BP 104/60; PULSE 100; RESP 18
[2018-09-21] MEDS: HYDROmorphONE 0.2 MG/ML PCA IV SCH (23:42)
[2018-09-22] VITALS (9 sets, daily range): BP systolic 106–117; BP diastolic 55–64; PULSE 87–100; RESP 14–19
[2018-09-22] MEDS: D5-NS + KCL 20 MEQ 1,000 ML IV SCH ×2 (05:58→18:13)
[2018-09-22] MEDS: PANTOPRAZOLE 40 MG INJ IV SCH ×2 (05:58→18:13)
[2018-09-22] MEDS: LEVOTHYROXINE 50 MCG TAB PO SCH (06:33)
[2018-09-22] MEDS: APIXABAN 5 MG TABLET PO SCH ×2 (09:00→21:28)
[2018-09-22] MEDS: FAMOTIDINE 20 MG TAB PO SCH (09:10)
--- NOTE | 2018-09-22 13:28 | CONS ---
Assessment/Plan Assessment/Plan Assessment/Plan (Daily) Assessment/Plan: 73 yo woman no major PMH presents after ovarian debulking surgery. #Dysphagia - GI following, plan for EGD today. #Ovarian cancer- status post debulking surgery (09/11/18) -Continue current pain control medications, follow-up primary team recommendation -it appears they are in the process of trying to contact hematology oncology team as well - Dr Acosta now going to be contacted. #Postoperative ileus-improving, patient is at high risk of ileus after intraperitoneal surgery on high doses of opiate analgesics. - For now continue diet per primary team recommendations - DE enemas and stimulants as needed #Postoperative pain- Agree with opioid analgesia as ordered by surgery. -Continue PT/OT #Hypothyroidism - Patient should continue daily thyroid replacement #Anemia -Monitor, consider transfuse pRBCs for symptomatic anemia or if Hgb drops to <7. #DVT prophylaxis - Will start eliquis 2.5 mg BID (for about 180 days). Thank you for the consult. We will continue to follow. Consultation Date/Type/Reason Admit Date/Time Sep 11, 2018 at 10:17 Initial Consult Date 09/13/18 Type of Consult Internal Medicine Reason for Consultation Postoperative management Requesting Provider: VIRGINIA COTE MD Date/Time of Note DATE: 09/22/18 TIME: 13:18 24 HR Interval Summary Free Text/Dictation No acute overnight events. Patient feeling well Planning for EGD today Exam/Review of Systems Exam Vitals Vital Signs Date Temp Pulse Resp B/P (MAP) Pulse Ox O2 O2 Flow FiO2 Time Delivery Rate 09/22/18 97.2 91 19 106/55 96 07:49 (72) 09/21/18 Room Air 14:45 Intake and Output 09/21/18 09/21/18 09/22/18 1515:00 23:00 07:00 IntakeIntake Total 860 ml 650 ml 600 ml OutputOutput Total 40 ml 30 ml BalanceBalance 860 ml 610 ml 570 ml Exam Gen: Obese woman lying in bed, NAD Eyes: PERRL, no icterus HEENT: PERRLA, EOMI Neck: R neck IJ line in place, no lymphadenopathy Card: Regular rate and rhythm, no murmurs Pulm: Clear to auscultation bilaterally Abd:. Midline surgical dressing clean/dry/intact. RLQ MARQUEZ drain with scant yellowish serous output. Nontender to light palpation throughout. Ext: R>L knee nodularity and arthritis. Otherwise no edema. Results Result Diagram: 09/20/1841809/20/18418 Medications Medication Current Medications Acetaminophen/ Hydrocodone Bitart ([place] (5/325)) 1 tab Q6H PRN PO PAIN LEVEL 6-10 Last administered on 09/12/18 12:25; Admin Dose 1 TAB; Start 09/11/18 at 17:30 Acetaminophen/ Hydrocodone Bitart ([place] (10/325)) 1 tab Q6H PRN PO PAIN Last administered on 09/12/18 21:35; Admin Dose 1 TAB; Start 09/11/18 at 17:30 Acetaminophen (Tylenol Tab) 650 mg Q6H PRN PO MILD PAIN(1-3)OR ELEVATED TEMP; Start 09/11/18 at 17:30 Potassium Chloride/Dextrose/ Sod Cl 1,000 ml @ 75 mls/hr [id number] IV Last administered on 09/22/18at 05:58; Admin Dose 75 MLS/HR; Start 09/11/18 at 17:28 Ondansetron HCl (Zofran Inj) 4 mg Q6H PRN IV .NAUSEA/VOMITING Last administered on 09/21/18at 05:44; Admin Dose 4 MG; Start 09/11/18 at 17:00 Zolpidem Tartrate (Ambien) 5 mg HS MAY REPEAT X 1 PRN PO .INSOMNIA; Start 09/11/18 at 17:00 Naloxone HCl (Narcan) 0.2 mg Q2M PRN IV .RESP RATE; Start 09/11/18 at 17:00 Hydromorphone HCl (Dilaudid TIPPLE GREASER) 0 MG/HR CONTINUOUS RATE 0.... Q4PCA IV Last administered on 09/21/18at 23:42; Admin Dose 6 MG; Start 09/12/18 at 20:00 Levothyroxine Sodium (Synthroid) 50 mcg BEFORE BREAKFAST PO Last administered on 09/22/18at 06:33; Admin Dose 50 MCG; Start 09/14/18 at 07:00 Sodium Biphosphate/ Sodium Phosphate (Fleet Enema) 133 ml DAILY PRN [place] CONSTIPATION; Start 09/13/18 at 22:00 Bisacodyl (Dulcolax Supp) 10 mg DAILY PRN DE CONSTIPATION Last administered on 09/14/18at 20:30; Admin Dose 10 MG; Start 09/14/18 at 11:00 Polyethylene Glycol (Miralax) 17 gm DAILY PRN PO CONSTIPATION; Start 09/17/18 at 12:30 Senna (Senokot) 2 tab BID PRN PO CONSTIPATION; Start 09/17/18 at 12:30 Famotidine (Pepcid) 20 mg DAILY PO Last administered on 09/22/18at 09:10; Admin Dose 20 MG; Start 09/19/18 at 09:00 Al Hydrox/Mg Hydrox/Simethicone (Mag-Al Plus) 30 ml Q6H PRN PO GASTROINTESTINAL UPSET; Start 09/20/18 at 00:00 Calcium Carbonate (Tums) 500 mg Q4 PRN PO heartburn Last administered on 09/21/18at 08:43; Admin Dose 500 MG; Start 09/20/18 at 00:00 Sucralfate (Carafate) 1 gm Q6H PRN PO GI upset; Start 09/21/18 at 00:00 Pantoprazole (Protonix Iv) 40 mg BID@18 IV Last administered on 09/22/18at 05:58; Admin Dose 40 MG; Start 09/21/18 at 18:00 Apixaban (Eliquis) 2.5 mg BID PO ; Start 09/22/18 at 09:00 LUCINDA PANDYA MD Sep 22, 2018 13:28
--- NOTE | 2018-09-22 14:31 | CONS ---
Assessment/Plan Assessment/Plan Hospital Course (Demo Recall) 73 yo with met ovarian ca s/p neoadjuvant chemo with good response, surgery delayed due to family issues. She finally had interval debulking sx on 09/11 and there is a considerable amt of disease she will need additional chemo as she is paltinum sensitive will resume her current chemo about 1 mo post op monitor ca 125 await foundation 1 and brca testing Consultation Date/Type/Reason Admit Date/Time Sep 11, 2018 at 10:17 Date/Time of Note DATE: 09/22/18 TIME: 14:27 Hx of Present Illness 72 yo [place]ian female who started feeling sick around the end of 2016. She got sick with what they thought was URI at the end of 2016, had been on abx and steroids. Also noted decreased appetite and trouble swallowing. She had upper abdominal pain, epigastric region. Also noted some dysphagia. Pain is persistent, achy in nature. At worst pain is 45/10. She also noted 20 pound weight loss in 23 mos. She has seen [facility] recently but prior to that was about 30 years ago, She had recent PAP which was normal per her daughter. Workup so far: Jul 2017 fecal occult blood negative. 10/19/2017: mammo [facility]DELRAHMAN 10/23/2017: BArium swallow: mild tertiary contractions of esophagus 11/09/2017: US pelvis, transabdominal prominent right adnexal fluid, CT AP recommended 11/17/2017: CT CAP with and w/o contrast: moderate left sided pleural effusion, no liver lesions, no LAD, diffuse omental thickening and nodularity most compatible woth peritoneal carcinomatosis PET omental caking SUV 9.9, 17.5 cm x 5.7 cm. hypermetaboloc cystic and solid massin in pelvis SUV 11, 7.2 x 10 cm. She presented to me on 12/04/2017 to discuss next steps in management. History of Present Illness: 12/20/2017: pt here for f/u. Had thoracentesis, path c/w inflammatory cells, malignancy not identified. Pt feels well. no SOB I explained to the patient that I spoke to the pathologist and this is obviously still an abnormal finding and not diagnostic CA 125: 718 01/06/2018: main complaint is coughing, at worst twice daily in the morning and the evening. Has about 23 min of spasmodic cough to the point that it causes near emesis. Also notes that she feels the "fluid is building up in my lungs. Feels less distended after paracentesis. Path consistent with ovarian ca 02/10/2018: day 35 after chemo, she felt heart burn and gassiness, less abdominal distension. no neuropathy. no SOB. 03/05/18: here for f/u, Had cycle 2 on 02/14, experienced reaction to taxolextre me back pain, given O2, additional decadron 10mg, demerol and IVF, VSS post treatment, no desaturation. She completed carbo without event. ad PET scan on 02/28: overall partial response to therapy , pelvic mass stable. mediastial LAD stable liver lesions less SUV uptake, SUV of mesenteric caking decreased. significant regression of pleural effusion. She is feeling better CA 125: 481 03/24/18: here for f/u had cycle 1 of Carbo and Abraxane 2017, main issue is arthralgias and myalgias. CA 125: 339 04/04: cycle 2 of Carbo and Abraxane CA125: 243 05/21/18: due for #4 carbo and abraxane main issue is bone pain 34 days she has swelling in right knee, last cortisone shot in knee Ca 125: 113 Xiomara Seth ([id number]) Page 1 of 4 06/16/18: feeling well. here for f/u 06/09/18 PET scan: shows continued decrease in disease burden: decrease in peritoneal mets in pelvis and mesenteric disease, near complete resolution of ascites, no effusion Has just rec'd auth for [facility] at [facility] CA 125: 57 08/15/18: saw Dr Ulloa, apparently she has to have surgery at [facility] but he is not authorized to do surgery there ca 125 306 She finally had her surgery 09/11/18: path showed extensive disease: A-Omentum: -- Metastatic serous papillary carcinoma, diffusely involving omentum, including the serosal surface. 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 D-Ovary and fallopian tube, right: -- Serous papillary carcinoma, focally involving serosal surface and cortex of the ovary and serosa and subserosa of adjacent fallopian tube. E-Anterior abdominal wall, biopsy: -- Metastatic serous papillary carcinoma. F-Umbilical nodule: -- Metastatic serous papillary carcinoma. COMMENT: As requested by Dr. Romero, a outreach representative block of the tumor is forwarded to [facility] for analysis. A separate supplemental report of that result will follow. Constitutional: no complaints, improved Eyes: no complaints ENT: no complaints Respiratory: no complaints Cardiovascular: no complaints Gastrointestinal: no complaints Genitourinary: no complaints Musculoskeletal: no complaints Skin: no complaints Neurologic: no complaints Endocrine: no complaints Lymphatic: no complaints Past Medical History Home Meds Reported Medications Levothyroxine Sodium* (Levothyroxine Sodium*) 50 Mcg Tablet, 50 MCG PO BEFORE BREAKFAST, #30 TAB 09/11/18 Medications Current Medications Acetaminophen/ Hydrocodone Bitart ([place] (5/325)) 1 tab Q6H PRN PO PAIN LEVEL 6-10 Last administered on 09/12/18at 12:25; Admin Dose 1 TAB; Start 09/11/18 at 17:30 Acetaminophen/ Hydrocodone Bitart ([place] (10/325)) 1 tab Q6H PRN PO PAIN Last administered on 09/12/18at 21:35; Admin Dose 1 TAB; Start 09/11/18 at 17:30 Acetaminophen (Tylenol Tab) 650 mg Q6H PRN PO MILD PAIN(1-3)OR ELEVATED TEMP; Start 09/11/18 at 17:30 Potassium Chloride/Dextrose/ Sod Cl 1,000 ml @ 75 mls/hr [id number] IV Last administered on 09/22/18at 05:58; Admin Dose 75 MLS/HR; Start 09/11/18 at 17:28 Ondansetron HCl (Zofran Inj) 4 mg Q6H PRN IV .NAUSEA/VOMITING Last administered on 09/21/18at 05:44; Admin Dose 4 MG; Start 09/11/18 at 17:00 Zolpidem Tartrate (Ambien) 5 mg HS MAY REPEAT X 1 PRN PO .INSOMNIA; Start 09/11/18 at 17:00 Naloxone HCl (Narcan) 0.2 mg Q2M PRN IV .RESP RATE; Start 09/11/18 at 17:00 Hydromorphone HCl (Dilaudid QUILT SEWER) 0 MG/HR CONTINUOUS RATE 0.... Q4PCA IV Last administered on 09/21/18at 23:42; Admin Dose 6 MG; Start 09/12/18 at 20:00 Levothyroxine Sodium (Synthroid) 50 mcg BEFORE BREAKFAST PO Last administered on 09/22/18at 06:33; Admin Dose 50 MCG; Start 09/14/18 at 07:00 Sodium Biphosphate/ Sodium Phosphate (Fleet Enema) 133 ml DAILY PRN [place] CONSTIPATION; Start 09/13/18 at 22:00 Bisacodyl (Dulcolax Supp) 10 mg DAILY PRN [place] CONSTIPATION Last administered on 09/14/18at 20:30; Admin Dose 10 MG; Start 09/14/18 at 11:00 Polyethylene Glycol (Miralax) 17 gm DAILY PRN PO CONSTIPATION; Start 09/17/18 at 12:30 Senna (Senokot) 2 tab BID PRN PO CONSTIPATION; Start 09/17/18 at 12:30 Famotidine (Pepcid) 20 mg DAILY PO Last administered on 09/22/18at 09:10; Admin Dose 20 MG; Start 09/19/18 at 09:00 Al Hydrox/Mg Hydrox/Simethicone (Mag-Al Plus) 30 ml Q6H PRN PO GASTROINTESTINAL UPSET; Start 09/20/18 at 00:00 Calcium Carbonate (Tums) 500 mg Q4 PRN PO heartburn Last administered on 09/21/18at 08:43; Admin Dose 500 MG; Start 09/20/18 at 00:00 Sucralfate (Carafate) 1 gm Q6H PRN PO GI upset; Start 09/21/18 at 00:00 Pantoprazole (Protonix Iv) 40 mg BID@,18 IV Last administered on 09/22/18at 05:58; Admin Dose 40 MG; Start 09/21/18 at 18:00 Apixaban (Eliquis) 2.5 mg BID PO ; Start 09/22/18 at 09:00 Allergies: Coded Allergies: lidocaine (Verified Allergy, Intermediate, THROAT ITCHY, 09/11/18) PER PT & RELATIVE Social History Alcohol Use: rarely Smoking Status: Never smoker Drug Use: none Exam/Review of Systems Exam Vitals Vital Signs Date Temp Pulse Resp B/P (MAP) Pulse Ox O2 O2 Flow FiO2 Time Delivery Rate 09/22/18 97.2 91 19 106/55 96 07:49 (72) 09/21/18 Room Air 14:45 Intake and Output 09/21/18 09/21/18 09/22/18 1515:00 23:00 07:00 IntakeIntake Total 860 ml 650 ml 600 ml OutputOutput Total 40 ml 30 ml BalanceBalance 860 ml 610 ml 570 ml Constitutional: alert, oriented, well developed Psych: no complaints, nl mood/affect Head: normocephalic, atraumatic Gastrointestinal: soft, nl liver, spleen, non-tender, surgical scars Results Result Diagram: 09/20/1841809/20/18418 Medications Medication Current Medications Acetaminophen/ Hydrocodone Bitart ([place] (5/325)) 1 tab Q6H PRN PO PAIN LEVEL 6-10 Last administered on 09/12/18 12:25; Admin Dose 1 TAB; Start 09/11/18 at 17:30 Acetaminophen/ Hydrocodone Bitart ([place] (10/325)) 1 tab Q6H PRN PO PAIN Last administered on 09/12/18 21:35; Admin Dose 1 TAB; Start 09/11/18 at 17:30 Acetaminophen (Tylenol Tab) 650 mg Q6H PRN PO MILD PAIN(1-3)OR ELEVATED TEMP; Start 09/11/18 at 17:30 Potassium Chloride/Dextrose/ Sod Cl 1,000 ml @ 75 mls/hr [id number] IV Last administered on 09/22/18at 05:58; Admin Dose 75 MLS/HR; Start 09/11/18 at 17:28 Ondansetron HCl (Zofran Inj) 4 mg Q6H PRN IV .NAUSEA/VOMITING Last administered on 09/21/18at 05:44; Admin Dose 4 MG; Start 09/11/18 at 17:00 Zolpidem Tartrate (Ambien) 5 mg HS MAY REPEAT X 1 PRN PO .INSOMNIA; Start 09/11/18 at 17:00 Naloxone HCl (Narcan) 0.2 mg Q2M PRN IV .RESP RATE; Start 09/11/18 at 17:00 Hydromorphone HCl (Dilaudid QUILT SEWER) 0 MG/HR CONTINUOUS RATE 0.... Q4PCA IV Last administered on 09/21/18at 23:42; Admin Dose 6 MG; Start 09/12/18 at 20:00 Levothyroxine Sodium (Synthroid) 50 mcg BEFORE BREAKFAST PO Last administered on 09/22/18at 06:33; Admin Dose 50 MCG; Start 09/14/18 at 07:00 Sodium Biphosphate/ Sodium Phosphate (Fleet Enema) 133 ml DAILY PRN MO CONSTIPATION; Start 09/13/18 at 22:00 Bisacodyl (Dulcolax Supp) 10 mg DAILY PRN [place] CONSTIPATION Last administered on 09/14/18at 20:30; Admin Dose 10 MG; Start 09/14/18 at 11:00 Polyethylene Glycol (Miralax) 17 gm DAILY PRN PO CONSTIPATION; Start 09/17/18 at 12:30 Senna (Senokot) 2 tab BID PRN PO CONSTIPATION; Start 09/17/18 at 12:30 Famotidine (Pepcid) 20 mg DAILY PO Last administered on 09/22/18at 09:10; Admin Dose 20 MG; Start 09/19/18 at 09:00 Al Hydrox/Mg Hydrox/Simethicone (Mag-Al Plus) 30 ml Q6H PRN PO GASTROINTESTINAL UPSET; Start 09/20/18 at 00:00 Calcium Carbonate (Tums) 500 mg Q4 PRN PO heartburn Last administered on 09/21/18at 08:43; Admin Dose 500 MG; Start 09/20/18 at 00:00 Sucralfate (Carafate) 1 gm Q6H PRN PO GI upset; Start 09/21/18 at 00:00 Pantoprazole (Protonix Iv) 40 mg BID@ IV Last administered on 09/22/18at 05:58; Admin Dose 40 MG; Start 09/21/18 at 18:00 Apixaban (Eliquis) 2.5 mg BID PO ; Start 09/22/18 at 09:00 DESHAUN ESCOBEDO 18, 2019 14:31
--- NOTE | 2018-09-22 14:37 | PREAC ---
Date/Time of Note Date/Time of Note DATE: 09/22/18 TIME: 14:36 Anesthesia Eval and Record Evaluation Time Pre-Procedure Interview DATE: 09/22/18 TIME: 14:36 Age 73 Sex female NPO: 8 hrs Preoperative diagnosis Dysphagia Planned procedure EGD Past Medical History Past Medical History: Includes Endo: Hypothyroid GI: Obesity Surgery & Anesthesia Issues No known issue Meds Anticoagulation: No Beta Sumi within 24 hr: No Reason Beta Sumi not given: Pt. not on B-Sumi Reported Medications Levothyroxine Sodium* (Levothyroxine Sodium*) 50 Mcg Tablet, 50 MCG PO BEFORE BREAKFAST, #30 TAB 09/11/18 Current Medications Acetaminophen/ Hydrocodone Bitart ([place] (5/325)) 1 tab Q6H PRN PO PAIN LEVEL 6-10 Last administered on 09/12/18at 12:25; Admin Dose 1 TAB; Start 09/11/18 at 17:30 Acetaminophen/ Hydrocodone Bitart ([place] (10/325)) 1 tab Q6H PRN PO PAIN Last administered on 09/12/18at 21:35; Admin Dose 1 TAB; Start 09/11/18 at 17:30 Acetaminophen (Tylenol Tab) 650 mg Q6H PRN PO MILD PAIN(1-3)OR ELEVATED TEMP; Start 09/11/18 at 17:30 Potassium Chloride/Dextrose/ Sod Cl 1,000 ml @ 75 mls/hr [id number] IV Last administered on 09/22/18at 05:58; Admin Dose 75 MLS/HR; Start 09/11/18 at 17:28 Ondansetron HCl (Zofran Inj) 4 mg Q6H PRN IV .NAUSEA/VOMITING Last administered on 09/21/18at 05:44; Admin Dose 4 MG; Start 09/11/18 at 17:00 Zolpidem Tartrate (Ambien) 5 mg HS MAY REPEAT X 1 PRN PO .INSOMNIA; Start 09/11/18 at 17:00 Naloxone HCl (Narcan) 0.2 mg Q2M PRN IV .RESP RATE; Start 09/11/18 at 17:00 Hydromorphone HCl (Dilaudid L[employer]ETING) 0 MG/HR CONTINUOUS RATE 0.... Q4PCA IV Last administered on 09/21/18at 23:42; Admin Dose 6 MG; Start 09/12/18 at 20:00 Levothyroxine Sodium (Synthroid) 50 mcg BEFORE BREAKFAST PO Last administered on 09/22/18at 06:33; Admin Dose 50 MCG; Start 09/14/18 at 07:00 Sodium Biphosphate/ Sodium Phosphate (Fleet Enema) 133 ml DAILY PRN [place] CONSTIPATION; Start 09/13/18 at 22:00 Bisacodyl (Dulcolax Supp) 10 mg DAILY PRN [place] CONSTIPATION Last administered on 09/14/18at 20:30; Admin Dose 10 MG; Start 09/14/18 at 11:00 Polyethylene Glycol (Miralax) 17 gm DAILY PRN PO CONSTIPATION; Start 09/17/18 at 12:30 Senna (Senokot) 2 tab BID PRN PO CONSTIPATION; Start 09/17/18 at 12:30 Famotidine (Pepcid) 20 mg DAILY PO Last administered on 09/22/18at 09:10; Admin Dose 20 MG; Start 09/19/18 at 09:00 Al Hydrox/Mg Hydrox/Simethicone (Mag-Al Plus) 30 ml Q6H PRN PO GASTROINTESTINAL UPSET; Start 09/20/18 at 00:00 Calcium Carbonate (Tums) 500 mg Q4 PRN PO heartburn Last administered on 09/21/18at 08:43; Admin Dose 500 MG; Start 09/20/18 at 00:00 Sucralfate (Carafate) 1 gm Q6H PRN PO GI upset; Start 09/21/18 at 00:00 Pantoprazole (Protonix Iv) 40 mg BID@06,18 IV Last administered on 09/22/18at 05:58; Admin Dose 40 MG; Start 09/21/18 at 18:00 Apixaban (Eliquis) 2.5 mg BID PO ; Start 09/22/18 at 09:00 Meds reviewed: Yes Allergies Coded Allergies: lidocaine (Verified Allergy, Intermediate, THROAT ITCHY, 09/11/18) PER PT & RELATIVE Allergies Reviewed: Yes Labs/Studies Labs Reviewed: Reviewed by anesthesiologist Result Diagram: 09/20/1841809/20/18418 test: N/A Pre-procedure Exam Last vitals Vital Signs Date Temp Pulse Resp B/P (MAP) Pulse Ox O2 O2 Flow FiO2 Time Delivery Rate 09/22/18 98.4 95 18 109/64 93 Room Air 14:16 (79) Airway: Adequate mouth opening Mallampati: Mallampati II Teeth: Normal Lung: Normal Heart: Normal ASA Physical Status ASA physical status: 2 Emergency: None Planned Anesthetic General/MAC: MAC Planned Pain Management Parenteral pain med Pre-operative Attestations Prior to commencing anesthesia and surgery, the patient was re-evaluated, there was verification of: *The patient's identity *The results of appropriate recent lab work and preoperative vital signs *The above evaluation not changing prior to induction *Anesthetic plan, risk benefits, alternative and complications discussed with patient/family; questions answered; patient/family understands, accepts and w ishes to proceed. JOSÉ MIGUEL BARBOSA MD Sep 22, 2018 14:37
[2018-09-22] MEDS ORDERED: PROPOFOL 20 ML ONE (14:44)
--- NOTE | 2018-09-22 14:56 | HPN ---
Date/Time of Note Date/Time of Note DATE: 09/22/18 TIME: 14:56 Interval H&P Admission Note Pt. seen H&P reviewed: No system changes KRISTYN EVERETT Sep 22, 2018 14:56
--- NOTE | 2018-09-22 15:54 | PAC ---
Date/Time of Note Date/Time of Note DATE: 09/22/18 TIME: 15:53 Post-Anesthesia Notes Post-Anesthesia Note Last documented vital signs Vital Signs Date Temp Pulse Resp B/P (MAP) Pulse Ox O2 O2 Flow FiO2 Time Delivery Rate 09/22/18 99.5 95 14 117/63 92 Room Air 15:28 (81) Activity: WNL Respiratory function: WNL Cardiovascular function: WNL Mental status: Baseline Pain reasonably controlled: Yes Hydration appropriate: Yes Nausea/Vomiting absent: Yes JOSÉ MIGUEL BARBOSA MD Sep 22, 2018 15:54
[2018-09-23 02:34] VITALS: BP 106/59; PULSE 77; RESP 18
[2018-09-23] MEDS: PANTOPRAZOLE 40 MG INJ IV SCH (06:19)
[2018-09-23] MEDS: LEVOTHYROXINE 50 MCG TAB PO SCH (06:19)
[2018-09-23] MEDS: D5-NS + KCL 20 MEQ 1,000 ML IV SCH ×2 (06:26→20:54)
[2018-09-23 07:39] VITALS: BP 105/66; RESP 19
[2018-09-23] MEDS: APIXABAN 5 MG TABLET PO SCH ×2 (09:33→20:56)
--- NOTE | 2018-09-23 12:37 | PN ---
Date/Time of Note Date/Time of Note DATE: 09/23/18 TIME: 12:21 Assessment/Plan VTE Prophylaxis Risk score (from Ns)>0 risk: 9 SCD applied (from Ns): Yes Pharmacological prophylaxis: other (scds) Lines/Catheters IV Catheter Type (from Nrsg): PICC Line Central line still needed: Yes (meds) Urinary Cath still in place: No Assessment/Plan Hospital Course Assessment: Dysphagia/odynophagia Rule out GERD plus minus opportunistic infection Rule out PUD. EGD 09/22/18 Severe erosive esophagitis Large hiatal hernia Gastric ulcer, shallow. Not bleeding Normocytic anemia History of ovarian CA post neoadjuvant chemotherapy plus surgical debulking Plan: PPI twice daily Carafate 1 g 4 times daily Repeat EGD in 4-6 weeks to verify ulcer here Await Bx results Patient seen in collaboration with Dr. Earl/Jaquelin Subjective: Course reviewed with nursing staff Patient interviewed and examined All labs, imaging and other results reviewed The patient sitting up in bed tolerating diet better. Discussed results with patient and family who was able to translate Currently awaiting bx results. Will continue close observation. PHYSICAL EXAMINATION: GENERAL: Well developed, well nourished, obese, alert & oriented x 3, in no acute distress SKIN: No lesions, no stigmata chronic liver disease, no evidence of bleeding diathesis HEAD: Normocephalic, atraumatic, no tenderness. EYES: Pupils equal reactive to light and accommodation, full extraocular movements, sclera clear, non-icteric, no discharge. EARS/NOSE AND THROAT: Ears normal, nose normal NECK: Supple, no masses CHEST: Inspection within normal limits. CARDIOVASCULAR: Heart: Regular rate and rhythm RESPIRATORY: Lungs clear to auscultation GASTROINTESTINAL AND LIVER: Abdomen: Soft, moderate epigastric and diffuse abdominal tenderness, mildly distended, no hernias, no masses, no organomegaly, no ascites, no guarding, no rebound tenderness, normoactive bowel sounds. Rectal: Deferred. EXTREMITIES: No cyanosis, clubbing or edema. Result Diagram: 09/20/18 0419 09/20/18 0419 Exam/Review of Systems Exam Vitals Vital Signs Date Temp Pulse Resp B/P (MAP) Pulse Ox O2 O2 Flow FiO2 Time Delivery Rate 09/23/18 17 09:00 09/23/18 98.2 105/66 96 07:39 (79) 09/23/18 77 02:34 09/22/18 Room Air 17:30 Intake and Output 09/22/18 09/22/18 09/23/18 1515:00 23:00 07:00 IntakeIntake Total 1000 ml 1000 ml OutputOutput Total 40 ml 30 ml BalanceBalance 960 ml 970 ml Medications Medication Current Medications Acetaminophen/ Hydrocodone Bitart ([place] (5/325)) 1 tab Q6H PRN PO PAIN LEVEL 6-10 Last administered on 09/12/18 12:25; Admin Dose 1 TAB; Start 09/11/18 at 17:30 Acetaminophen/ Hydrocodone Bitart ([place] (10/325)) 1 tab Q6H PRN PO PAIN Last administered on 09/12/18 21:35; Admin Dose 1 TAB; Start 09/11/18 at 17:30 Acetaminophen (Tylenol Tab) 650 mg Q6H PRN PO MILD PAIN(1-3)OR ELEVATED TEMP; Start 09/11/18 at 17:30 Potassium Chloride/Dextrose/ Sod Cl 1,000 ml @ 75 mls/hr [id number] IV Last administered on 09/23/18 06:26; Admin Dose 75 MLS/HR; Start 09/11/18 at 17:28 Ondansetron HCl (Zofran Inj) 4 mg Q6H PRN IV .NAUSEA/VOMITING Last administered on 09/21/18 05:44; Admin Dose 4 MG; Start 09/11/18 at 17:00 Zolpidem Tartrate (Ambien) 5 mg HS MAY REPEAT X 1 PRN PO .INSOMNIA; Start 09/11/18 at 17:00 Naloxone HCl (Narcan) 0.2 mg Q2M PRN IV .RESP RATE; Start 09/11/18 at 17:00 Hydromorphone HCl (Dilaudid BRAKE [employer]INGS COATER) 0 MG/HR CONTINUOUS RATE 0.... Q4PCA IV Last administered on 09/21/18at 23:42; Admin Dose 6 MG; Start 09/12/18 at 20:00 Levothyroxine Sodium (Synthroid) 50 mcg BEFORE BREAKFAST PO Last administered on 09/23/18 06:19; Admin Dose 50 MCG; Start 09/14/18 at 07:00 Sodium Biphosphate/ Sodium Phosphate (Fleet Enema) 133 ml DAILY PRN [place] CONSTIPATION; Start 09/13/18 at 22:00 Bisacodyl (Dulcolax Supp) 10 mg DAILY PRN [place] CONSTIPATION Last administered on 09/14/18at 20:30; Admin Dose 10 MG; Start 09/14/18 at 11:00 Polyethylene Glycol (Miralax) 17 gm DAILY PRN PO CONSTIPATION; Start 09/17/18 at 12:30 Senna (Senokot) 2 tab BID PRN PO CONSTIPATION; Start 09/17/18 at 12:30 Al Hydrox/Mg Hydrox/Simethicone (Mag-Al Plus) 30 ml Q6H PRN PO GASTROINTESTINAL UPSET; Start 09/20/18 at 00:00 Calcium Carbonate (Tums) 500 mg Q4 PRN PO heartburn Last administered on 09/21/18at 08:43; Admin Dose 500 MG; Start 09/20/18 at 00:00 Sucralfate (Carafate) 1 gm Q6H PRN PO GI upset; Start 09/21/18 at 00:00 Pantoprazole (Protonix Iv) 40 mg BID@,18 IV Last administered on 09/23/18at 06:19; Admin Dose 40 MG; Start 09/21/18 at 18:00 Apixaban (Eliquis) 2.5 mg BID PO Last administered on 09/23/18at 09:33; Admin Dose 2.5 MG; Start 09/22/18 at 09:00 KB THOMPSON Sep 23, 2018 12:32
[2018-09-23] MEDS: SUCRALFATE 1 GM TAB PO SCH ×3 (13:47→20:56)
--- NOTE | 2018-09-23 15:36 | CONS ---
Assessment/Plan Assessment/Plan Assessment/Plan (Daily) 73 yo woman no major PMH presents after ovarian debulking surgery. #Ulcerative esophagitis - Causing severe dysphagia - GI following - EGD 09/22 shows severe ulcerative esophagitis. Images appear to show circular and linear ulcers. - This cancer patient on chemotherapy is at risk of catrachito or CMV esophagitis. She should remain inpatient while waiting for biopsy results. - Until then continue PPI and carafate. #Ovarian cancer- status post debulking surgery (09/11/18) -Continue current pain control medications, - Dr Acosta now going to be contacted. #Postoperative ileus-improving, patient is at high risk of ileus after intraperitoneal surgery on high doses of opiate analgesics. - For now continue diet per primary team recommendations - [place] enemas and stimulants as needed #Postoperative pain- Agree with opioid analgesia as ordered by surgery. -Continue PT/OT #Hypothyroidism - Patient should continue daily thyroid replacement #Anemia -Monitor, consider transfuse pRBCs for symptomatic anemia or if Hgb drops to <7. #DVT prophylaxis - Will start eliquis 2.5 mg BID (for about 180 days). Thank you for the consult. We will continue to follow. Consultation Date/Type/Reason Admit Date/Time Sep 11, 2018 at 10:17 Initial Consult Date 09/13/18 Type of Consult Internal Medicine Requesting Provider: VIRGINIA COTE MD Date/Time of Note DATE: 09/23/18 TIME: 15:33 24 HR Interval Summary Free Text/Dictation Patient got EGD yesterday showing severe ulcerative esophagitis. Today she still reports pain with swallowing, even soups. Otherwise no acute events. Exam/Review of Systems Exam Vitals Vital Signs Date Temp Pulse Resp B/P (MAP) Pulse Ox O2 O2 Flow FiO2 Time Delivery Rate 09/23/18 18 13:00 09/23/18 98.2 105/66 96 07:39 (79) 09/23/18 77 02:34 09/22/18 Room Air 17:30 Intake and Output 09/22/18 09/22/18 09/23/18 1515:00 23:00 07:00 IntakeIntake Total 1000 ml 1000 ml OutputOutput Total 40 ml 30 ml BalanceBalance 960 ml 970 ml Exam Gen: Obese woman lying in bed, NAD Eyes: PERRL, no icterus HEENT: PERRLA, EOMI Neck: R neck IJ line in place, no lymphadenopathy Card: Regular rate and rhythm, no murmurs Pulm: Clear to auscultation bilaterally Abd:. Midline surgical dressing clean/dry/intact. RLQ MARQUEZ drain with scant yellowish serous output. Nontender to light palpation throughout. Ext: R>L knee nodularity and arthritis. Otherwise no edema. Results Result Diagram: 09/20/1841809/20/18418 Medications Medication Current Medications Acetaminophen/ Hydrocodone Bitart ([place] (5/325)) 1 tab Q6H PRN PO PAIN LEVEL 6-10 Last administered on 09/12/18 12:25; Admin Dose 1 TAB; Start 09/11/18 at 17: 30 Acetaminophen/ Hydrocodone Bitart ([place] (10/325)) 1 tab Q6H PRN PO PAIN Last administered on 09/12/18 21:35; Admin Dose 1 TAB; Start 09/11/18 at 17:30 Acetaminophen (Tylenol Tab) 650 mg Q6H PRN PO MILD PAIN(1-3)OR ELEVATED TEMP; Start 09/11/18 at 17:30 Potassium Chloride/Dextrose/ Sod Cl 1,000 ml @ 75 mls/hr [id number] IV Last administered on 09/23/18 06:26; Admin Dose 75 MLS/HR; Start 09/11/18 at 17:28 Ondansetron HCl (Zofran Inj) 4 mg Q6H PRN IV .NAUSEA/VOMITING Last administered on 09/21/18 05:44; Admin Dose 4 MG; Start 09/11/18 at 17:00 Zolpidem Tartrate (Ambien) 5 mg HS MAY REPEAT X 1 PRN PO .INSOMNIA; Start 09/11/18 at 17:00 Naloxone HCl (Narcan) 0.2 mg Q2M PRN IV .RESP RATE; Start 09/11/18 at 17:00 Hydromorphone HCl (Dilaudid STORAGE AND BACKUP ADMINISTRATOR) 0 MG/HR CONTINUOUS RATE 0.... Q4PCA IV Last administered on 09/21/18 23:42; Admin Dose 6 MG; Start 09/12/18 at 20:00 Levothyroxine Sodium (Synthroid) 50 mcg BEFORE BREAKFAST PO Last administered on 09/23/18 06:19; Admin Dose 50 MCG; Start 09/14/18 at 07:00 Sodium Biphosphate/ Sodium Phosphate (Fleet Enema) 133 ml DAILY PRN [place] CONSTIPATION; Start 09/13/18 at 22:00 Bisacodyl (Dulcolax Supp) 10 mg DAILY PRN [place] CONSTIPATION Last administered on 09/14/18at 20:30; Admin Dose 10 MG; Start 09/14/18 at 11:00 Polyethylene Glycol (Miralax) 17 gm DAILY PRN PO CONSTIPATION; Start 09/17/18 at 12:30 Senna (Senokot) 2 tab BID PRN PO CONSTIPATION; Start 09/17/18 at 12:30 Al Hydrox/Mg Hydrox/Simethicone (Mag-Al Plus) 30 ml Q6H PRN PO GASTROINTESTINAL UPSET; Start 09/20/18 at 00:00 Calcium Carbonate (Tums) 500 mg Q4 PRN PO heartburn Last administered on 09/21/18at 08:43; Admin Dose 500 MG; Start 09/20/18 at 00:00 Apixaban (Eliquis) 2.5 mg BID PO Last administered on 09/23/18at 09:33; Admin Dose 2.5 MG; Start 09/22/18 at 09:00 Sucralfate (Carafate) 1 gm QID PO Last administered on 09/23/18at 13:47; Admin Dose 1 GM; Start 09/23/18 at 13:00 Pantoprazole (Protonix Tab) 40 mg BID@0600,1800 PO ; Start 09/23/18 at 18:00 LUCINDA PANDYA MD Sep 23, 2018 15:36
[2018-09-23] MEDS: PANTOPRAZOLE (EC) 40 MG TAB PO SCH (18:25)
[2018-09-23 20:05] VITALS: BP 106/74; PULSE 100; RESP 18
[2018-09-24 01:56] VITALS: BP 107/64; PULSE 97; RESP 16
[2018-09-24] MEDS: PANTOPRAZOLE (EC) 40 MG TAB PO SCH ×2 (06:00→18:51)
[2018-09-24 07:54] VITALS: BP 105/64; PULSE 88; RESP 17
[2018-09-24] MEDS: LEVOTHYROXINE 50 MCG TAB PO SCH (09:01)
[2018-09-24] MEDS: APIXABAN 5 MG TABLET PO SCH ×2 (09:01→20:26)
[2018-09-24] MEDS: SUCRALFATE 1 GM TAB PO SCH ×4 (09:01→20:26)
[2018-09-24] MEDS: D5-NS + KCL 20 MEQ 1,000 ML IV SCH ×2 (10:27→23:08)
[2018-09-24 14:06] VITALS: BP 112/69; PULSE 91; RESP 18
--- NOTE | 2018-09-24 14:08 | CONS ---
Assessment/Plan Assessment/Plan Assessment/Plan (Daily) 73 yo woman no major PMH presents after ovarian debulking surgery. #Ulcerative esophagitis - Causing severe dysphagia - GI following - EGD 09/22 shows severe ulcerative esophagitis. Images appear to show circular and linear ulcers. - This cancer patient on chemotherapy is at risk of catrachito or CMV esophagitis. She should remain inpatient while waiting for biopsy results. - Until then continue PPI and carafate. #Ovarian cancer- status post debulking surgery (09/11/18) -Continue current pain control medications, - Dr Acosta now going to be contacted. #Postoperative ileus-improving, patient is at high risk of ileus after intraperitoneal surgery on high doses of opiate analgesics. - For now continue diet per primary team recommendations - [place] enemas and stimulants as needed #Postoperative pain- Agree with opioid analgesia as ordered by surgery. -Continue PT/OT #Hypothyroidism - Patient should continue daily thyroid replacement #Anemia -Monitor, consider transfuse pRBCs for symptomatic anemia or if Hgb drops to <7. #DVT prophylaxis - Cont eliquis 2.5 mg BID (for about 180 days). Thank you for the consult. We will continue to follow. Consultation Date/Type/Reason Admit Date/Time Sep 11, 2018 at 10:17 Initial Consult Date 09/13/18 Type of Consult Internal Medicine Requesting Provider: VIRGINIA COTE MD Date/Time of Note DATE: 09/24/18 TIME: 14:07 24 HR Interval Summary Free Text/Dictation No acute overnight events. No complaints. Exam/Review of Systems Exam Vitals Vital Signs Date Temp Pulse Resp B/P (MAP) Pulse Ox O2 O2 Flow FiO2 Time Delivery Rate 09/24/18 98.2 88 17 105/64 95 07:54 (78) 09/23/18 Nasal 2 21:20 Cannula Intake and Output 09/23/18 09/23/18 09/24/18 1515:00 23:00 07:00 IntakeIntake Total 1840 ml 200 ml OutputOutput Total 290 ml 260 ml BalanceBalance 1550 ml -60 ml Exam Gen: Obese woman lying in bed, NAD Eyes: PERRL, no icterus HEENT: PERRLA, EOMI Neck: R neck IJ line in place, no lymphadenopathy Card: Regular rate and rhythm, no murmurs Pulm: Clear to auscultation bilaterally Abd:. Midline surgical dressing clean/dry/intact. RLQ MARQUEZ drain with scant yel lowish serous output. Nontender to light palpation throughout. Ext: R>L knee nodularity and arthritis. Otherwise no edema. Results Result Diagram: 09/20/1841809/20/18418 Medications Medication Current Medications Acetaminophen/ Hydrocodone Bitart ([place] (5/325)) 1 tab Q6H PRN PO PAIN LEVEL 6-10 Last administered on 09/12/18 12:25; Admin Dose 1 TAB; Start 09/11/18 at 17:30 Acetaminophen/ Hydrocodone Bitart ([place] (10/325)) 1 tab Q6H PRN PO PAIN Last administered on 09/12/18 21:35; Admin Dose 1 TAB; Start 09/11/18 at 17:30 Acetaminophen (Tylenol Tab) 650 mg Q6H PRN PO MILD PAIN(1-3)OR ELEVATED TEMP; Start 09/11/18 at 17:30 Potassium Chloride/Dextrose/ Sod Cl 1,000 ml @ 75 mls/hr [id number] IV Last administered on 09/24/18 10:27; Admin Dose 75 MLS/HR; Start 09/11/18 at 17:28 Ondansetron HCl (Zofran Inj) 4 mg Q6H PRN IV .NAUSEA/VOMITING Last administered on 09/21/18 05:44; Admin Dose 4 MG; Start 09/11/18 at 17:00 Zolpidem Tartrate (Ambien) 5 mg HS MAY REPEAT X 1 PRN PO .INSOMNIA; Start 09/11/18 at 17:00 Naloxone HCl (Narcan) 0.2 mg Q2M PRN IV .RESP RATE; Start 09/11/18 at 17:00 Hydromorphone HCl (Dilaudid SHANK SKINNER) 0 MG/HR CONTINUOUS RATE 0.... Q4PCA IV Last administered on 09/21/18at 23:42; Admin Dose 6 MG; Start 09/12/18 at 20:00 Levothyroxine Sodium (Synthroid) 50 mcg BEFORE BREAKFAST PO Last administered on 09/24/18 09:01; Admin Dose 50 MCG; Start 09/14/18 at 07:00 Sodium Biphosphate/ Sodium Phosphate (Fleet Enema) 133 ml DAILY PRN [place] CONSTIPATION; Start 09/13/18 at 22:00 Bisacodyl (Dulcolax Supp) 10 mg DAILY PRN [place] CONSTIPATION Last administered on 09/14/18at 20:30; Admin Dose 10 MG; Start 09/14/18 at 11:00 Polyethylene Glycol (Miralax) 17 gm DAILY PRN PO CONSTIPATION; Start 09/17/18 at 12:30 Senna (Senokot) 2 tab BID PRN PO CONSTIPATION; Start 09/17/18 at 12:30 Al Hydrox/Mg Hydrox/Simethicone (Mag-Al Plus) 30 ml Q6H PRN PO GASTROINTESTINAL UPSET; Start 09/20/18 at 00:00 Calcium Carbonate (Tums) 500 mg Q4 PRN PO heartburn Last administered on 09/21/18at 08:43; Admin Dose 500 MG; Start 09/20/18 at 00:00 Apixaban (Eliquis) 2.5 mg BID PO Last administered on 09/24/18at 09:01; Admin Dose 2.5 MG; Start 09/22/18 at 09:00 Sucralfate (Carafate) 1 gm QID PO Last administered on 09/24/18at 13:46; Admin Dose 1 GM; Start 09/23/18 at 13:00 Pantoprazole (Protonix Tab) 40 mg BID@0600,1800 PO Last administered on 09/24/18at 06:00; Admin Dose 40 MG; Start 09/23/18 at 18:00 LUCINDA PANDYA MD Sep 24, 2018 14:08
--- NOTE | 2018-09-24 16:09 | PN ---
Date/Time of Note Date/Time of Note DATE: 09/24/18 TIME: 15:57 Assessment/Plan VTE Prophylaxis Risk score (from Ns)>0 risk: 9 SCD applied (from Ns): Yes Pharmacological prophylaxis: other (scds) Lines/Catheters IV Catheter Type (from Nrsg): PICC Line Central line still needed: Yes (meds) Urinary Cath still in place: No Assessment/Plan Hospital Course Assessment: Dysphagia/odynophagia Rule out GERD plus minus opportunistic infection Rule out PUD. EGD 09/22/18 Severe erosive esophagitis- bx negative for fungal organisms.No glandular epithelium, intraepithelial eosinophils or viral cytopathic effect identified. Large hiatal hernia Gastric ulcer, shallow. Not bleeding - bx neg for H. pylroi Normocytic anemia History of ovarian CA post neoadjuvant chemotherapy plus surgical debulking Plan: PPI twice daily Carafate 1 g 4 times daily Repeat EGD in 4-6 weeks to verify ulcer here BX- reviewed- no changes to current medication regimen Patient seen in collaboration with Dr. Earl/Jaquelin Subjective: Course reviewed with nursing staff Patient interviewed and examined All labs, imaging and other results reviewed Pt resting in bed, appears tired. She is eating well No c/o odynophagia currently or dysphagia. Continue current plan of care Thank you for this consultation we will continue to follow if patient continues to improve tomorrow we will likely sign off the near future. PHYSICAL EXAMINATION: GENERAL: Well developed, well nourished, obese, alert & oriented x 3, in no acute distress SKIN: No lesions, no stigmata chronic liver disease, no evidence of bleeding diathesis HEAD: Normocephalic, atraumatic, no tenderness. EYES: Pupils equal reactive to light and accommodation, full extraocular movements, sclera clear, non-icteric, no discharge. EARS/NOSE AND THROAT: Ears normal, nose normal NECK: Supple, no masses CHEST: Inspection within normal limits. CARDIOVASCULAR: Heart: Regular rate and rhythm RESPIRATORY: Lungs clear to auscultation GASTROINTESTINAL AND LIVER: Abdomen: Soft, moderate epigastric and diffuse abdominal tenderness, mildly distended, no hernias, no masses, no organomegaly, no ascites, no guarding, no rebound tenderness, normoactive bowel sounds. Rectal: Deferred. EXTREMITIES: No cyanosis, clubbing or edema. Result Diagram: 09/20/18 0419 09/20/18 0419 Results 24hrs Laboratory Tests Test 09/24/18 14:12 CA 125 Antigen 462.0 H Exam/Review of Systems Exam Vitals Vital Signs Date Temp Pulse Resp B/P (MAP) Pulse Ox O2 O2 Flow FiO2 Time Delivery Rate 09/24/18 98.7 91 18 112/69 95 14:06 (83) 09/23/18 Nasal 2 21:20 Cannula Intake and Output 09/23/18 09/23/18 09/24/18 1515:00 23:00 07:00 IntakeIntake Total 1840 ml 200 ml OutputOutput Total 290 ml 260 ml BalanceBalance 1550 ml -60 ml Results Results 24hrs Laboratory Tests Test 09/24/18 14:12 CA 125 Antigen 462.0 H Medications Medication Current Medications Acetaminophen/ Hydrocodone Bitart ([place] (5/325)) 1 tab Q6H PRN PO PAIN LEVEL 6-10 Last administered on 09/12/18at 12:25; Admin Dose 1 TAB; Start 09/11/18 at 17:30 Acetaminophen/ Hydrocodone Bitart ([place] (10/325)) 1 tab Q6H PRN PO PAIN Last administered on 09/12/18at 21:35; Admin Dose 1 TAB; Start 09/11/18 at 17:30 Acetaminophen (Tylenol Tab) 650 mg Q6H PRN PO MILD PAIN(1-3)OR ELEVATED TEMP; Start 09/11/18 at 17:30 Potassium Chloride/Dextrose/ Sod Cl 1,000 ml @ 75 mls/hr [id number] IV Last administered on 09/24/18at 10:27; Admin Dose 75 MLS/HR; Start 09/11/18 at 17:28 Ondansetron HCl (Zofran Inj) 4 mg Q6H PRN IV .NAUSEA/VOMITING Last administered on 09/21/18at 05:44; Admin Dose 4 MG; Start 09/11/18 at 17:00 Zolpidem Tartrate (Ambien) 5 mg HS MAY REPEAT X 1 PRN PO .INSOMNIA; Start 09/11/18 at 17:00 Naloxone HCl (Narcan) 0.2 mg Q2M PRN IV .RESP RATE; Start 09/11/18 at 17:00 Hydromorphone HCl (Dilaudid SAF[employer]Y DEPOSIT SUPERVISOR) 0 MG/HR CONTINUOUS RATE 0.... Q4PCA IV Last administered on 09/21/18 23:42; Admin Dose 6 MG; Start 09/12/18 at 20:00 Levothyroxine Sodium (Synthroid) 50 mcg BEFORE BREAKFAST PO Last administered on 09/24/18 09:01; Admin Dose 50 MCG; Start 09/14/18 at 07:00 Sodium Biphosphate/ Sodium Phosphate (Fleet Enema) 133 ml DAILY PRN [place] CONSTIPATION; Start 09/13/18 at 22:00 Bisacodyl (Dulcolax Supp) 10 mg DAILY PRN [place] CONSTIPATION Last administered on 09/14/18 20:30; Admin Dose 10 MG; Start 09/14/18 at 11:00 Polyethylene Glycol (Miralax) 17 gm DAILY PRN PO CONSTIPATION; Start 09/17/18 at 12:30 Senna (Senokot) 2 tab BID PRN PO CONSTIPATION; Start 09/17/18 at 12:30 Al Hydrox/Mg Hydrox/Simethicone (Mag-Al Plus) 30 ml Q6H PRN PO GASTROINTESTINAL UPSET; Start 09/20/18 at 00:00 Calcium Carbonate (Tums) 500 mg Q4 PRN PO heartburn Last administered on 09/21/18 08:43; Admin Dose 500 MG; Start 09/20/18 at 00:00 Apixaban (Eliquis) 2.5 mg BID PO Last administered on 09/24/18 09:01; Admin Dose 2.5 MG; Start 09/22/18 at 09:00 Sucralfate (Carafate) 1 gm QID PO Last administered on 09/24/18 13:46; Admin Dose 1 GM; Start 09/23/18 at 13:00 Pantoprazole (Protonix Tab) 40 mg BID@0600,1800 PO Last administered on 09/24/18 06:00; Admin Dose 40 MG; Start 09/23/18 at 18:00 KB THOMPSON Sep 24, 2018 16:08
--- NOTE | 2018-09-24 16:52 | CONS ---
Assessment/Plan Assessment/Plan Hospital Course (Demo Recall) 73 yo with met ovarian ca s/p neoadjuvant chemo with good response, surgery delayed due to family issues. She finally had interval debulking sx on 09/11 and there is a considerable amt of disease she will need additional chemo as she is paltinum sensitive will resume her current chemo about 1 mo post op monitor ca 125 await foundation 1 and brca testing explained she needs to recover from surgery chemo will be initiated as outpt once she is clear from surgery perspective Consultation Date/Type/Reason Admit Date/Time Sep 11, 2018 at 10:17 Initial Consult Date 09/21/18 Requesting Provider: VIRGINIA COTE MD Date/Time of Note DATE: 09/24/18 TIME: 16:51 24 HR Interval Summary Free Text/Dictation no complaints Exam/Review of Systems Exam Vitals Vital Signs Date Temp Pulse Resp B/P (MAP) Pulse Ox O2 O2 Flow FiO2 Time Delivery Rate 09/24/18 98.7 91 18 112/69 95 14:06 (83) 09/23/18 Nasal 2 21:20 Cannula Intake and Output 09/23/18 09/23/18 09/24/18 1515:00 23:00 07:00 IntakeIntake Total 1840 ml 200 ml OutputOutput Total 290 ml 260 ml BalanceBalance 1550 ml -60 ml Constitutional: alert, oriented, well developed, frail Psych: no complaints, nl mood/affect Head: normocephalic, atraumatic Eyes: nl conjunctiva, EOMI, nl lids, nl sclera, PERRL Results Result Diagram: 09/20/18 0419 09/20/18 0419 Results 24hrs Laboratory Tests Test 09/24/18 14:12 CA 125 Antigen 462.0 H Medications Medication Current Medications Acetaminophen/ Hydrocodone Bitart ([place] (5/325)) 1 tab Q6H PRN PO PAIN LEVEL 6-10 Last administered on 09/12/18at 12:25; Admin Dose 1 TAB; Start 09/11/18 at 17:30 Acetaminophen/ Hydrocodone Bitart ([place] (10/325)) 1 tab Q6H PRN PO PAIN Last administered on 09/12/18at 21:35; Admin Dose 1 TAB; Start 09/11/18 at 17:30 Acetaminophen (Tylenol Tab) 650 mg Q6H PRN PO MILD PAIN(1-3)OR ELEVATED TEMP; Start 09/11/18 at 17:30 Potassium Chloride/Dextrose/ Sod Cl 1,000 ml @ 75 mls/hr [id number] IV Last administered on 09/24/18at 10:27; Admin Dose 75 MLS/HR; Start 09/11/18 at 17:28 Ondansetron HCl (Zofran Inj) 4 mg Q6H PRN IV .NAUSEA/VOMITING Last administered on 09/21/18at 05:44; Admin Dose 4 MG; Start 09/11/18 at 17:00 Zolpidem Tartrate (Ambien) 5 mg HS MAY REPEAT X 1 PRN PO .INSOMNIA; Start 09/11/18 at 17:00 Naloxone HCl (Narcan) 0.2 mg Q2M PRN IV .RESP RATE; Start 09/11/18 at 17:00 Hydromorphone HCl (Dilaudid KOSHER DI[employer]ARY SERVICE SUPERVISOR) 0 MG/HR CONTINUOUS RATE 0.... Q4PCA IV Last administered on 09/21/18at 23:42; Admin Dose 6 MG; Start 09/12/18 at 20:00 Levothyroxine Sodium (Synthroid) 50 mcg BEFORE BREAKFAST PO Last administered on 09/24/18at 09:01; Admin Dose 50 MCG; Start 09/14/18 at 07:00 Sodium Biphosphate/ Sodium Phosphate (Fleet Enema) 133 ml DAILY PRN [place] CONSTIPATION; Start 09/13/18 at 22:00 Bisacodyl (Dulcolax Supp) 10 mg DAILY PRN [place] CONSTIPATION Last administered on 09/14/18at 20:30; Admin Dose 10 MG; Start 09/14/18 at 11:00 Polyethylene Glycol (Miralax) 17 gm DAILY PRN PO CONSTIPATION; Start 09/17/18 at 12:30 Senna (Senokot) 2 tab BID PRN PO CONSTIPATION; Start 09/17/18 at 12:30 Al Hydrox/Mg Hydrox/Simethicone (Mag-Al Plus) 30 ml Q6H PRN PO GASTROINTESTINAL UPSET; Start 09/20/18 at 00:00 Calcium Carbonate (Tums) 500 mg Q4 PRN PO heartburn Last administered on 09/21/18at 08:43; Admin Dose 500 MG; Start 09/20/18 at 00:00 Apixaban (Eliquis) 2.5 mg BID PO Last administered on 09/24/18 09:01; Admin Dose 2.5 MG; Start 09/22/18 at 09:00 Sucralfate (Carafate) 1 gm QID PO Last administered on 09/24/18 13:46; Admin Dose 1 GM; Start 09/23/18 at 13:00 Pantoprazole (Protonix Tab) 40 mg BID@0600,1800 PO Last administered on 09/06 06:00; Admin Dose 40 MG; Start 09/23/18 at 18:00 DESHAUN ESCOBEDO Sep 24, 2018 16:52
[2018-09-24 19:25] VITALS: BP 112/69; PULSE 94; RESP 18
[2018-09-25 02:10] VITALS: BP 113/64; PULSE 84; RESP 18
[2018-09-25] MEDS: ONDANSETRON 4 MG INJ IV PRN (04:32)
[2018-09-25] MEDS: HYDROmorphONE 0.2 MG/ML PCA IV SCH (04:34)
[2018-09-25] MEDS: PANTOPRAZOLE (EC) 40 MG TAB PO SCH ×2 (05:40→18:20)
[2018-09-25] MEDS: LEVOTHYROXINE 50 MCG TAB PO SCH (05:40)
[2018-09-25 07:42] VITALS: BP 112/65; PULSE 94; RESP 18
[2018-09-25] MEDS: SUCRALFATE 1 GM TAB PO SCH ×4 (09:29→21:03)
[2018-09-25] MEDS: APIXABAN 5 MG TABLET PO SCH ×2 (09:29→21:03)
--- NOTE | 2018-09-25 10:57 | PN ---
Date/Time of Note Date/Time of Note DATE: 09/25/18 TIME: 10:55 Assessment/Plan VTE Prophylaxis Risk score (from Ns)>0 risk: 6 SCD applied (from Ns): Yes Pharmacological prophylaxis: other (scds) Lines/Catheters IV Catheter Type (from Nrsg): PICC Line Central line still needed: Yes (meds) Urinary Cath still in place: No Assessment/Plan Hospital Course Assessment: Dysphagia/odynophagia Rule out GERD plus minus opportunistic infection Rule out PUD. EGD 09/22/18 Severe erosive esophagitis- bx negative for fungal organisms.No glandular epithelium, intraepithelial eosinophils or viral cytopathic effect identified. Large hiatal hernia Gastric ulcer, shallow. Not bleeding - bx neg for H. pylroi Normocytic anemia History of ovarian CA post neoadjuvant chemotherapy plus surgical debulking Plan: PPI twice daily/Carafate 1 g 4 times daily- x 6 weeks Repeat EGD in 4-6 weeks to verify ulcer healing BX- reviewed- no changes to current medication regimen Patient appears stable for out-pt management Patient seen in collaboration with Dr. Earl/Jaja Subjective: Course reviewed with nursing staff Patient interviewed and examined All labs, imaging and other results reviewed No over night events. With the use of wound care center consultant Pt states he is swallowing better and has less pain swallowing In regards to GI sx she feels much better. PHYSICAL EXAMINATION: GENERAL: Well developed, well nourished, obese, alert & oriented x 3, in no acute distress SKIN: No lesions, no stigmata chronic liver disease, no evidence of bleeding diathesis CHEST: Inspection within normal limits. CARDIOVASCULAR: Heart: Regular rate and rhythm RESPIRATORY: Lungs clear to auscultation GASTROINTESTINAL AND LIVER: Abdomen: Soft, moderate epigastric and diffuse abdominal tenderness, mildly distended, dressing in place, no ascites, no guarding, no rebound tenderness, normoactive bowel sounds. Rectal: Deferred. EXTREMITIES: No cyanosis, clubbing or edema. Result Diagram: 09/25/188 09/25/188 Results 24hrs Laboratory Tests Test 09/24/18 14:12 09/25/18 04:28 CA 125 Antigen 462.0 H White Blood Count 7.8 Red Blood Count 2.76 L Hemoglobin 8.8 L Hematocrit 27.3 L Mean Corpuscular Volume 98.9 Mean Corpuscular Hemoglobin 31.9 Mean Corpuscular Hemoglobin Concent 32.2 Red Cell Distribution Width 12.3 Platelet Count 333 Mean Platelet Volume 9.8 Immature Granulocytes % 1.500 H Neutrophils % 64.5 Lymphocytes % 23.2 Monocytes % 7.7 Eosinophils % 2.7 Basophils % 0.4 Nucleated Red Blood Cells % 0.0 Immature Granulocytes # 0.120 H Neutrophils # 5.0 Lymphocytes # 1.8 Monocytes # 0.6 Eosinophils # 0.2 Basophils # 0.0 Nucleated Red Blood Cells # 0.0 Sodium Level 138 Potassium Level 3.7 Chloride Level 104 Carbon Dioxide Level 25 Anion Gap 9 Blood Urea Nitrogen 5 L Creatinine 0.72 Est Glomerular Filtrat Rate mL/min Glucose Level 107 Calcium Level 8.1 L Phosphorus Level 4.0 Magnesium Level 1.7 Exam/Review of Systems Exam Vitals Vital Signs Date Temp Pulse Resp B/P (MAP) Pulse Ox O2 O2 Flow FiO2 Time Delivery Rate 09/25/18 18 09:00 09/25/18 97.6 94 112/65 99 07:42 (81) 09/23/18 Nasal 2 21:20 Cannula Intake and Output 09/24/18 09/24/18 09/25/18 1515:00 23:00 07:00 IntakeIntake Total 1300 ml 700 ml 1020 ml OutputOutput Total 30 ml 30 ml BalanceBalance 1270 ml 670 ml 1020 ml Results Results 24hrs Laboratory Tests Test 09/24/18 14:12 09/25/18 04:28 CA 125 Antigen 462.0 H White Blood Count 7.8 Red Blood Count 2.76 L Hemoglobin 8.8 L Hematocrit 27.3 L Mean Corpuscular Volume 98.9 Mean Corpuscular Hemoglobin 31.9 Mean Corpuscular Hemoglobin Concent 32.2 Red Cell Distribution Width 12.3 Platelet Count 333 Mean Platelet Volume 9.8 Immature Granulocytes % 1.500 H Neutrophils % 64.5 Lymphocytes % 23.2 Monocytes % 7.7 Eosinophils % 2.7 Basophils % 0.4 Nucleated Red Blood Cells % 0.0 Immature Granulocytes # 0.120 H Neutrophils # 5.0 Lymphocytes # 1.8 Monocytes # 0.6 Eosinophils # 0.2 Basophils # 0.0 Nucleated Red Blood Cells # 0.0 Sodium Level 138 Potassium Level 3.7 Chloride Level 104 Carbon Dioxide Level 25 Anion Gap 9 Blood Urea Nitrogen 5 L Creatinine 0.72 Est Glomerular Filtrat Rate mL/min Glucose Level 107 Calcium Level 8.1 L Phosphorus Level 4.0 Magnesium Level 1.7 Medications Medication Current Medications Acetaminophen/ Hydrocodone Bitart ([place] (5/325)) 1 tab Q6H PRN PO PAIN LEVEL 6-10 Last administered on 09/12/18 12:25; Admin Dose 1 TAB; Start 09/11/18 at 17:30 Acetaminophen/ Hydrocodone Bitart ([place] (10/325)) 1 tab Q6H PRN PO PAIN Last administered on 09/12/18 21:35; Admin Dose 1 TAB; Start 09/11/18 at 17:30 Acetaminophen (Tylenol Tab) 650 mg Q6H PRN PO MILD PAIN(1-3)OR ELEVATED TEMP; Start 09/11/18 at 17:30 Potassium Chloride/Dextrose/ Sod Cl 1,000 ml @ 75 mls/hr [id number] IV Last admin istered on 09/24/18 23:08; Admin Dose 75 MLS/HR; Start 09/11/18 at 17:28 Ondansetron HCl (Zofran Inj) 4 mg Q6H PRN IV .NAUSEA/VOMITING Last administered on 09/25/18 04:32; Admin Dose 4 MG; Start 09/11/18 at 17:00 Zolpidem Tartrate (Ambien) 5 mg HS MAY REPEAT X 1 PRN PO .INSOMNIA; Start 09/11/18 at 17:00 Naloxone HCl (Narcan) 0.2 mg Q2M PRN IV .RESP RATE; Start 09/11/18 at 17:00 Hydromorphone HCl (Dilaudid YOGA COORDINATOR) 0 MG/HR CONTINUOUS RATE 0.... Q4PCA IV Last administered on 09/25/18 04:34; Admin Dose 6 MG; Start 09/12/18 at 20:00 Levothyroxine Sodium (Synthroid) 50 mcg BEFORE BREAKFAST PO Last administered on 09/25/18 05:40; Admin Dose 50 MCG; Start 09/14/18 at 07:00 Sodium Biphosphate/ Sodium Phosphate (Fleet Enema) 133 ml DAILY PRN [place] CONSTIPATION; Start 09/13/18 at 22:00 Bisacodyl (Dulcolax Supp) 10 mg DAILY PRN [place] CONSTIPATION Last administered on 09/14/18 20:30; Admin Dose 10 MG; Start 09/14/18 at 11:00 Polyethylene Glycol (Miralax) 17 gm DAILY PRN PO CONSTIPATION; Start 09/17/18 at 12:30 Senna (Senokot) 2 tab BID PRN PO CONSTIPATION; Start 09/17/18 at 12:30 Al Hydrox/Mg Hydrox/Simethicone (Mag-Al Plus) 30 ml Q6H PRN PO GASTROINTESTINAL UPSET; Start 09/20/18 at 00:00 Calcium Carbonate (Tums) 500 mg Q4 PRN PO heartburn Last administered on 09/21/18at 08:43; Admin Dose 500 MG; Start 09/20/18 at 00:00 Apixaban (Eliquis) 2.5 mg BID PO Last administered on 09/25/18at 09:29; Admin Dose 2.5 MG; Start 09/22/18 at 09:00 Sucralfate (Carafate) 1 gm QID PO Last administered on 09/25/18 09:29; Admin Dose 1 GM; Start 09/23/18 at 13:00 Pantoprazole (Protonix Tab) 40 mg BID@0600,1800 PO Last administered on 09/25/18at 05:40; Admin Dose 40 MG; Start 09/23/18 at 18:00 KB THOMPSON Sep 25, 2018 10:57
[2018-09-25] MEDS: D5-NS + KCL 20 MEQ 1,000 ML IV SCH (12:06)
[2018-09-25] MEDS ORDERED: OXYCODONE/ACETAMINOPHEN (10/325) TAB PO PRN (13:00)
[2018-09-25 13:39] VITALS: BP 98/64; PULSE 90; RESP 18
--- NOTE | 2018-09-25 14:02 | CONS ---
Assessment/Plan Assessment/Plan Hospital Course (Demo Recall) #met ovarian ca s/p neoadjuvant chemo with good response -s/p interval debulking sx on 09/11 and there is a considerable amt of disease -will start adjuvant chemo as an out patient -as she is paltinum sensitive will resume her current chemo about 1 mo post op -monitor ca 125 -await foundation 1 and brca testing -explained she needs to recover from surgery #Dysphagia -EGD consistent with erosive esophagitis Consultation Date/Type/Reason Admit Date/Time Sep 11, 2018 at 10:17 Initial Consult Date 09/21/18 Type of Consult oncology Reason for Consultation ovarian cancer Requesting Provider: VIRGINIA COTE MD Date/Time of Note DATE: 09/25/18 TIME: 13:59 24 HR Interval Summary Free Text/Dictation still on SCIENCE ANALYST but is to transition po pain meds Exam/Review of Systems Exam Vitals Vital Signs Date Temp Pulse Resp B/P (MAP) Pulse Ox O2 O2 Flow FiO2 Time Delivery Rate 09/25/18 98.7 90 18 98/64 (75) 96 13:39 09/23/18 Nasal 2 21:20 Cannula Intake and Output 09/24/18 09/24/18 09/25/18 1515:00 23:00 07:00 IntakeIntake Total 1300 ml 700 ml 1020 ml OutputOutput Total 30 ml 30 ml BalanceBalance 1270 ml 670 ml 1020 ml Constitutional: alert, oriented Psych: no complaints Head: normocephalic Eyes: nl conjunctiva ENMT: nl external ears & nose Neck: supple Respiratory: clear to auscultation Cardiovascular: regular rate and rhythm Gastrointestinal: soft Musculoskeletal: nl extremities to inspection Results Result Diagram: 09/25/18 0428 09/25/18 0428 Results 24hrs Laboratory Tests Test 09/24/18 14:12 09/25/18 04:28 CA 125 Antigen 462.0 H White Blood Count 7.8 Red Blood Count 2.76 L Hemoglobin 8.8 L Hematocrit 27.3 L Mean Corpuscular Volume 98.9 Mean Corpuscular Hemoglobin 31.9 Mean Corpuscular Hemoglobin Concent 32.2 Red Cell Distribution Width 12.3 Platelet Count 333 Mean Platelet Volume 9.8 Immature Granulocytes % 1.500 H Neutrophils % 64.5 Lymphocytes % 23.2 Monocytes % 7.7 Eosinophils % 2.7 Basophils % 0.4 Nucleated Red Blood Cells % 0.0 Immature Granulocytes # 0.120 H Neutrophils # 5.0 Lymphocytes # 1.8 Monocytes # 0.6 Eosinophils # 0.2 Basophils # 0.0 Nucleated Red Blood Cells # 0.0 Sodium Level 138 Potassium Level 3.7 Chloride Level 104 Carbon Dioxide Level 25 Anion Gap 9 Blood Urea Nitrogen 5 L Creatinine 0.72 Est Glomerular Filtrat Rate mL/min Glucose Level 107 Calcium Level 8.1 L Phosphorus Level 4.0 Magnesium Level 1.7 Medications Medication Current Medications Acetaminophen/ Hydrocodone Bitart ([place] (5/325)) 1 tab Q6H PRN PO PAIN LEVEL 6-10 Last administered on 09/12/18at 12:25; Admin Dose 1 TAB; Start 09/11/18 at 17:30 Acetaminophen/ Hydrocodone Bitart ([place] (10/325)) 1 tab Q6H PRN PO PAIN Last administered on 09/12/18at 21:35; Admin Dose 1 TAB; Start 09/11/18 at 17:30 Acetaminophen (Tylenol Tab) 650 mg Q6H PRN PO MILD PAIN(1-3)OR ELEVATED TEMP; Start 09/11/18 at 17:30 Ondansetron HCl (Zofran Inj) 4 mg Q6H PRN IV .NAUSEA/VOMITING Last administered on 09/25/18at 04:32; Admin Dose 4 MG; Start 09/11/18 at 17:00 Zolpidem Tartrate (Ambien) 5 mg HS MAY REPEAT X 1 PRN PO .INSOMNIA; Start 09/11/18 at 17:00 Naloxone HCl (Narcan) 0.2 mg Q2M PRN IV .RESP RATE; Start 09/11/18 at 17:00 Levothyroxine Sodium (Synthroid) 50 mcg BEFORE BREAKFAST PO Last administered on 09/25/18at 05:40; Admin Dose 50 MCG; Start 09/14/18 at 07:00 Sodium Biphosphate/ Sodium Phosphate (Fleet Enema) 133 ml DAILY PRN [place] CONSTIPATION; Start 09/13/18 at 22:00 Bisacodyl (Dulcolax Supp) 10 mg DAILY PRN [place] CONSTIPATION Last administered on 09/14/18at 20:30; Admin Dose 10 MG; Start 09/14/18 at 11:00 Polyethylene Glycol (Miralax) 17 gm DAILY PRN PO CONSTIPATION; Start 09/17/18 at 12:30 Senna (Senokot) 2 tab BID PRN PO CONSTIPATION; Start 09/17/18 at 12:30 Al Hydrox/Mg Hydrox/Simethicone (Mag-Al Plus) 30 ml Q6H PRN PO GASTROINTESTINAL UPSET; Start 09/20/18 at 00:00 Calcium Carbonate (Tums) 500 mg Q4 PRN PO heartburn Last administered on 09/21/18at 08:43; Admin Dose 500 MG; Start 09/20/18 at 00:00 Apixaban (Eliquis) 2.5 mg BID PO Last administered on 09/25/18at 09:29; Admin Dose 2.5 MG; Start 09/22/18 at 09:00 Sucralfate (Carafate) 1 gm QID PO Last administered on 09/25/18at 09:29; Admin Dose 1 GM; Start 09/23/18 at 13:00 Pantoprazole (Protonix Tab) 40 mg BID@0600,1800 PO Last administered on 09/25/18at 05:40; Admin Dose 40 MG; Start 09/23/18 at 18:00 Oxycodone/ Acetaminophen (Percocet (5/ 325)) 1 tab Q4H PRN PO MODERATE PAIN LEVEL 4-6; Start 09/25/18 at 13:00 Oxycodone/ Acetaminophen (Endocet (10/ 325)) 1 tab Q4H PRN PO MODERATE PAIN LEVEL 4-6; Start 09/25/18 at 13:00 NAIMA HOPKINS M.D. Sep 25, 2018 14:02
--- NOTE | 2018-09-25 14:13 | CONS ---
Assessment/Plan Assessment/Plan Assessment/Plan (Daily) 73 yo woman no major PMH presents after ovarian debulking surgery. #Ulcerative esophagitis - Causing severe dysphagia - GI following - EGD 09/22 shows severe ulcerative esophagitis. Images appear to show circular and linear ulcers. - Biopsy negative for fungi or virus - Continue PPI and carafate, outpatient GI followup. #Ovarian cancer- status post debulking surgery (09/11/18) - Pain control per surgery. - Dr Acosta now going to be contacted. #Postoperative ileus-improving, patient is at high risk of ileus after intraperitoneal surgery on high doses of opiate analgesics. - For now continue diet per primary team recommendations - VT enemas and stimulants as needed #Postoperative pain- Agree with opioid analgesia as ordered by surgery. -Continue PT/OT #Hypothyroidism - Patient should continue daily thyroid replacement #Anemia -Monitor, consider transfuse pRBCs for symptomatic anemia or if Hgb drops to <7. #DVT prophylaxis - Cont eliquis 2.5 mg BID (for about 180 days). From internal medicine perspective, patient is medically clear for discharge. We will prescribe PPI, carafate, and eliquis. Pain control per surgery. Consultation Date/Type/Reason Admit Date/Time Sep 11, 2018 at 10:17 Initial Consult Date 09/13/18 Type of Consult Internal Medicine Requesting Provider: VIRGINIA COTE MD Date/Time of Note DATE: 09/25/18 TIME: 14:07 24 HR Interval Summary Free Text/Dictation No acute overnight events. Patient doing well, no complaints. Ambulating, tolerating diet. Exam/Review of Systems Exam Vitals Vital Signs Date Temp Pulse Resp B/P (MAP) Pulse Ox O2 O2 Flow FiO2 Time Delivery Rate 09/25/18 98.7 90 18 98/64 (75) 96 13:39 09/23/18 Nasal 2 21:20 Cannula Intake and Output 09/24/18 09/24/18 09/25/18 1515:00 23:00 07:00 IntakeIntake Total 1300 ml 700 ml 1020 ml OutputOutput Total 30 ml 30 ml BalanceBalance 1270 ml 670 ml 1020 ml Exam Gen: Obese woman lying in bed, NAD Eyes: PERRL, no icterus HEENT: PERRLA, EOMI Neck: no lymphadenopathy Card: Regular rate and rhythm, no murmurs Pulm: Clear to auscultation bilaterally Abd:. Midline surgical dressing clean/dry/intact. RLQ MARQUEZ drain with scant yellowish serous output. Nontender to light palpation throughout. Ext: R>L knee nodularity and arthritis. Otherwise no edema. Results Result Diagram: 09/25/188 09/25/188 Results 24hrs Laboratory Tests Test 09/24/18 14:12 09/25/18 04:28 CA 125 Antigen 462.0 H White Blood Count 7.8 Red Blood Count 2.76 L Hemoglobin 8.8 L Hematocrit 27.3 L Mean Corpuscular Volume 98.9 Mean Corpuscular Hemoglobin 31.9 Mean Corpuscular Hemoglobin Concent 32.2 Red Cell Distribution Width 12.3 Platelet Count 333 Mean Platelet Volume 9.8 Immature Granulocytes % 1.500 H Neutrophils % 64.5 Lymphocytes % 23.2 Monocytes % 7.7 Eosinophils % 2.7 Basophils % 0.4 Nucleated Red Blood Cells % 0.0 Immature Granulocytes # 0.120 H Neutrophils # 5.0 Lymphocytes # 1.8 Monocytes # 0.6 Eosinophils # 0.2 Basophils # 0.0 Nucleated Red Blood Cells # 0.0 Sodium Level 138 Potassium Level 3.7 Chloride Level 104 Carbon Dioxide Level 25 Anion Gap 9 Blood Urea Nitrogen 5 L Creatinine 0.72 Est Glomerular Filtrat Rate mL/min Glucose Level 107 Calcium Level 8.1 L Phosphorus Level 4.0 Magnesium Level 1.7 Medications Medication Current Medications Acetaminophen/ Hydrocodone Bitart ([place] (5/325)) 1 tab Q6H PRN PO PAIN LEVEL 6-10 Last administered on 09/12/18at 12:25; Admin Dose 1 TAB; Start 09/11/18 at 17:30 Acetaminophen/ Hydrocodone Bitart ([place] (10/325)) 1 tab Q6H PRN PO PAIN Last administered on 09/12/18at 21:35; Admin Dose 1 TAB; Start 09/11/18 at 17:30 Acetaminophen (Tylenol Tab) 650 mg Q6H PRN PO MILD PAIN(1-3)OR ELEVATED TEMP; Start 09/11/18 at 17:30 Ondansetron HCl (Zofran Inj) 4 mg Q6H PRN IV .NAUSEA/VOMITING Last administered on 09/25/18at 04:32; Admin Dose 4 MG; Start 09/11/18 at 17:00 Zolpidem Tartrate (Ambien) 5 mg HS MAY REPEAT X 1 PRN PO .INSOMNIA; Start 09/11/18 at 17:00 Naloxone HCl (Narcan) 0.2 mg Q2M PRN IV .RESP RATE; Start 09/11/18 at 17:00 Levothyroxine Sodium (Synthroid) 50 mcg BEFORE BREAKFAST PO Last administered on 09/25/18at 05:40; Admin Dose 50 MCG; Start 09/14/18 at 07:00 Sodium Biphosphate/ Sodium Phosphate (Fleet Enema) 133 ml DAILY PRN [place] CONSTIPATION; Start 09/13/18 at 22:00 Bisacodyl (Dulcolax Supp) 10 mg DAILY PRN [place] CONSTIPATION Last administered on 09/14/18at 20:30; Admin Dose 10 MG; Start 09/14/18 at 11:00 Polyethylene Glycol (Miralax) 17 gm DAILY PRN PO CONSTIPATION; Start 09/17/18 at 12:30 Senna (Senokot) 2 tab BID PRN PO CONSTIPATION; Start 09/17/18 at 12:30 Al Hydrox/Mg Hydrox/Simethicone (Mag-Al Plus) 30 ml Q6H PRN PO GASTROINTESTINAL UPSET; Start 09/20/18 at 00:00 Calcium Carbonate (Tums) 500 mg Q4 PRN PO heartburn Last administered on 09/05 01/23at 08:43; Admin Dose 500 MG; Start 09/20/18 at 00:00 Apixaban (Eliquis) 2.5 mg BID PO Last administered on 09/25/18 09:29; Admin Dose 2.5 MG; Start 09/22/18 at 09:00 Sucralfate (Carafate) 1 gm QID PO Last administered on 09/25/18 09:29; Admin Dose 1 GM; Start 09/23/18 at 13:00 Pantoprazole (Protonix Tab) 40 mg BID@0600,1800 PO Last administered on 09/25/18 05:40; Admin Dose 40 MG; Start 09/23/18 at 18:00 Oxycodone/ Acetaminophen (Percocet (5/ 325)) 1 tab Q4H PRN PO MODERATE PAIN LEVEL 4-6; Start 09/25/18 at 13:00 Oxycodone/ Acetaminophen (Endocet (10/ 325)) 1 tab Q4H PRN PO MODERATE PAIN LEVEL 4-6; Start 09/25/18 at 13:00 LUCINDA PANDYA MD Sep 25, 2018 14:13
[2018-09-25] MEDS: OXYCODONE/ACETAMINOPHEN (5/325) TAB PO PRN (14:29)
--- NOTE | 2018-09-25 16:56 | PN ---
Date/Time of Note Date/Time of Note DATE: 09/25/18 TIME: 16:55 Assessment/Plan VTE Prophylaxis Risk score (from Nsg)>0 risk: 3 SCD applied (from Nsg): Yes Pharmacological prophylaxis: LMWH Lines/Catheters IV Catheter Type (from Nrsg): PICC Line Central line still needed: No Urinary Cath still in place: No Assessment/Plan Hospital Course Post op Assessment/Plan MARQUEZ removed. D/C home tomorrow. Port as outpatient per Dr. Acosta. Result Diagram: 09/25/1842709/25/188 Results 24hrs Laboratory Tests Test 09/25/18 04:28 White Blood Count 7.8 Red Blood Count 2.76 L Hemoglobin 8.8 L Hematocrit 27.3 L Mean Corpuscular Volume 98.9 Mean Corpuscular Hemoglobin 31.9 Mean Corpuscular Hemoglobin Concent 32.2 Red Cell Distribution Width 12.3 Platelet Count 333 Mean Platelet Volume 9.8 Immature Granulocytes % 1.500 H Neutrophils % 64.5 Lymphocytes % 23.2 Monocytes % 7.7 Eosinophils % 2.7 Basophils % 0.4 Nucleated Red Blood Cells % 0.0 Immature Granulocytes # 0.120 H Neutrophils # 5.0 Lymphocytes # 1.8 Monocytes # 0.6 Eosinophils # 0.2 Basophils # 0.0 Nucleated Red Blood Cells # 0.0 Sodium Level 138 Potassium Level 3.7 Chloride Level 104 Carbon Dioxide Level 25 Anion Gap 9 Blood Urea Nitrogen 5 L Creatinine 0.72 Est Glomerular Filtrat Rate mL/min Glucose Level 107 Calcium Level 8.1 L Phosphorus Level 4.0 Magnesium Level 1.7 Subjective 24 Hr Interval Summary Free Text/Dictation Feeling better Exam/Review of Systems Exam Vitals Vital Signs Date Temp Pulse Resp B/P (MAP) Pulse Ox O2 O2 Flow FiO2 Time Delivery Rate 09/25/18 14 14:36 09/25/18 98.7 90 98/64 (75) 96 13:39 09/23/18 Nasal 2 21:20 Cannula Intake and Output 09/24/18 09/24/18 09/25/18 1515:00 23:00 07:00 IntakeIntake Total 1300 ml 700 ml 1020 ml OutputOutput Total 30 ml 30 ml BalanceBalance 1270 ml 670 ml 1020 ml Gastrointestinal: soft Results Results 24hrs Laboratory Tests Test 09/25/18 04:28 White Blood Count 7.8 Red Blood Count 2.76 L Hemoglobin 8.8 L Hematocrit 27.3 L Mean Corpuscular Volume 98.9 Mean Corpuscular Hemoglobin 31.9 Mean Corpuscular Hemoglobin Concent 32.2 Red Cell Distribution Width 12.3 Platelet Count 333 Mean Platelet Volume 9.8 Immature Granulocytes % 1.500 H Neutrophils % 64.5 Lymphocytes % 23.2 Monocytes % 7.7 Eosinophils % 2.7 Basophils % 0.4 Nucleated Red Blood Cells % 0.0 Immature Granulocytes # 0.120 H Neutrophils # 5.0 Lymphocytes # 1.8 Monocytes # 0.6 Eosinophils # 0.2 Basophils # 0.0 Nucleated Red Blood Cells # 0.0 Sodium Level 138 Potassium Level 3.7 Chloride Level 104 Carbon Dioxide Level 25 Anion Gap 9 Blood Urea Nitrogen 5 L Creatinine 0.72 Est Glomerular Filtrat Rate mL/min Glucose Level 107 Calcium Level 8.1 L Phosphorus Level 4.0 Magnesium Level 1.7 Medications Medication Current Medications Acetaminophen/ Hydrocodone Bitart ([place] (5/325)) 1 tab Q6H PRN PO PAIN LEVEL 6-10 Last administered on 09/12/18at 12:25; Admin Dose 1 TAB; Start 09/11/18 at 17:30 Acetaminophen/ Hydrocodone Bitart ([place] (10/325)) 1 tab Q6H PRN PO PAIN Last administered on 09/12/18at 21:35; Admin Dose 1 TAB; Start 09/11/18 at 17:30 Acetaminophen (Tylenol Tab) 650 mg Q6H PRN PO MILD PAIN(1-3)OR ELEVATED TEMP; Start 09/11/18 at 17:30 Ondansetron HCl (Zofran Inj) 4 mg Q6H PRN IV .NAUSEA/VOMITING Last administered on 09/25/18at 04:32; Admin Dose 4 MG; Start 09/11/18 at 17:00 Zolpidem Tartrate (Ambien) 5 mg HS MAY REPEAT X 1 PRN PO .INSOMNIA; Start 09/11/18 at 17:00 Naloxone HCl (Narcan) 0.2 mg Q2M PRN IV .RESP RATE; Start 09/11/18 at 17:00 Levothyroxine Sodium (Synthroid) 50 mcg BEFORE BREAKFAST PO Last administered on 09/25/18at 05:40; Admin Dose 50 MCG; Start 09/14/18 at 07:00 Sodium Biphosphate/ Sodium Phosphate (Fleet Enema) 133 ml DAILY PRN [place] CONSTIPATION; Start 09/13/18 at 22:00 Bisacodyl (Dulcolax Supp) 10 mg DAILY PRN [place] CONSTIPATION Last administered on 09/14/18at 20:30; Admin Dose 10 MG; Start 09/14/18 at 11:00 Polyethylene Glycol (Miralax) 17 gm DAILY PRN PO CONSTIPATION; Start 09/17/18 at 12:30 Senna (Senokot) 2 tab BID PRN PO CONSTIPATION; Start 09/17/18 at 12:30 Al Hydrox/Mg Hydrox/Simethicone (Mag-Al Plus) 30 ml Q6H PRN PO GASTROINTESTINAL UPSET; Start 09/20/18 at 00:00 Calcium Carbonate (Tums) 500 mg Q4 PRN PO heartburn Last administered on 09/21/18 08:43; Admin Dose 500 MG; Start 09/20/18 at 00:00 Apixaban (Eliquis) 2.5 mg BID PO Last administered on 09/25/18 09:29; Admin Dose 2.5 MG; Start 09/22/18 at 09:00 Sucralfate (Carafate) 1 gm QID PO Last administered on 09/25/18 14:28; Admin Dose 1 GM; Start 09/23/18 at 13:00 Pantoprazole (Protonix Tab) 40 mg BID@0600,1800 PO Last administered on 09/25/18 05:40; Admin Dose 40 MG; Start 09/23/18 at 18:00 Oxycodone/ Acetaminophen (Percocet (5/ 325)) 1 tab Q4H PRN PO MODERATE PAIN LEVEL 4-6 Last administered on 09/25/18at 14:29; Admin Dose 1 TAB; Start 09/25/18 at 13:00 Oxycodone/ Acetaminophen (Endocet (10/ 325)) 1 tab Q4H PRN PO MODERATE PAIN LEVEL 4-6; Start 09/25/18 at 13:00 VIRGINIA COTE MD Sep 25, 2018 16:56
[2018-09-25 20:28] VITALS: BP 101/62; PULSE 84; RESP 18
[2018-09-26 02:30] VITALS: BP 107/55; PULSE 88; RESP 18
[2018-09-26] MEDS: PANTOPRAZOLE (EC) 40 MG TAB PO SCH ×2 (06:33→18:28)
[2018-09-26] MEDS: HYDROCODONE/APAP (10/325) TAB PO PRN (06:33)
[2018-09-26] MEDS: LEVOTHYROXINE 50 MCG TAB PO SCH (06:33)
[2018-09-26 07:16] VITALS: BP 101/56; PULSE 80; RESP 19
--- NOTE | 2018-09-26 08:35 | CONS ---
Assessment/Plan Assessment/Plan Hospital Course (Demo Recall) #met ovarian ca s/p neoadjuvant chemo with good response -s/p interval debulking sx on 09/11 and there is a considerable amt of disease -will start adjuvant chemo as an out patient -as she is paltinum sensitive will resume her current chemo about 1 mo post op -monitor ca 125 -await foundation 1 and brca testing -MARQUEZ drain has been removed -pt may be dc'd from onc standpoint #Dysphagia -EGD consistent with erosive esophagitis Consultation Date/Type/Reason Admit Date/Time Sep 11, 2018 at 10:17 Initial Consult Date 09/21/18 Type of Consult oncology Reason for Consultation ovarian cancer Requesting Provider: VIRGINIA COTE MD Date/Time of Note DATE: 09/26/18 TIME: 08:33 24 HR Interval Summary Free Text/Dictation pt continues to work with PT / OT. MARQUEZ drain has been removed Exam/Review of Systems Exam Vitals Vital Signs Date Temp Pulse Resp B/P (MAP) Pulse Ox O2 O2 Flow FiO2 Time Delivery Rate 09/26/18 98.2 80 19 101/56 98 07:16 (71) 09/23/18 Nasal 2 21:20 Cannula Intake and Output 09/25/18 09/25/18 09/26/18 1515:00 23:00 07:00 IntakeIntake Total 900 ml 400 ml 200 ml BalanceBalance 900 ml 400 ml 200 ml Constitutional: alert, oriented Psych: no complaints Head: normocephalic Eyes: nl conjunctiva ENMT: nl external ears & nose Neck: supple Respiratory: clear to auscultation Cardiovascular: regular rate and rhythm Gastrointestinal: soft Musculoskeletal: nl extremities to inspection Extremities: normal pulses Results Result Diagram: 09/25/1842709/25/18427 Medications Medication Current Medications Acetaminophen/ Hydrocodone Bitart ([place] (5/325)) 1 tab Q6H PRN PO PAIN LEVEL 6-10 Last administered on 09/12/18at 12:25; Admin Dose 1 TAB; Start 09/11/18 at 17:30 Acetaminophen/ Hydrocodone Bitart ([place] (10/325)) 1 tab Q6H PRN PO PAIN Last administered on 09/26/18at 06:33; Admin Dose 1 TAB; Start 09/11/18 at 17:30 Acetaminophen (Tylenol Tab) 650 mg Q6H PRN PO MILD PAIN(1-3)OR ELEVATED TEMP; Start 09/11/18 at 17:30 Ondansetron HCl (Zofran Inj) 4 mg Q6H PRN IV .NAUSEA/VOMITING Last administered on 09/25/18at 04:32; Admin Dose 4 MG; Start 09/11/18 at 17:00 Zolpidem Tartrate (Ambien) 5 mg HS MAY REPEAT X 1 PRN PO .INSOMNIA; Start 09/11/18 at 17:00 Naloxone HCl (Narcan) 0.2 mg Q2M PRN IV .RESP RATE; Start 09/11/18 at 17:00 Levothyroxine Sodium (Synthroid) 50 mcg BEFORE BREAKFAST PO Last administered on 09/26/18at 06:33; Admin Dose 50 MCG; Start 09/14/18 at 07:00 Sodium Biphosphate/ Sodium Phosphate (Fleet Enema) 133 ml DAILY PRN [place] CONSTIPATION; Start 09/13/18 at 22:00 Bisacodyl (Dulcolax Supp) 10 mg DAILY PRN [place] CONSTIPATION Last administered on 09/14/18at 20:30; Admin Dose 10 MG; Start 09/14/18 at 11:00 Polyethylene Glycol (Miralax) 17 gm DAILY PRN PO CONSTIPATION; Start 09/17/18 at 12:30 Senna (Senokot) 2 tab BID PRN PO CONSTIPATION; Start 09/17/18 at 12:30 Al Hydrox/Mg Hydrox/Simethicone (Mag-Al Plus) 30 ml Q6H PRN PO GASTROINTESTINAL UPSET; Start 09/20/18 at 00:00 Calcium Carbonate (Tums) 500 mg Q4 PRN PO heartburn Last administered on 09/21/18at 08:43; Admin Dose 500 MG; Start 09/20/18 at 00:00 Apixaban (Eliquis) 2.5 mg BID PO Last administered on 09/25/18 21:03; Admin Dose 2.5 MG; Start 09/22/18 at 09:00 Sucralfate (Carafate) 1 gm QID PO Last administered on 09/25/18 21:03; Admin Dose 1 GM; Start 09/23/18 at 13:00 Pantoprazole (Protonix Tab) 40 mg BID@0600,1800 PO Last administered on 3/22/19at 06:33; Admin Dose 40 MG; Start 09/23/18 at 18:00 Oxycodone/ Acetaminophen (Percocet (5/ 325)) 1 tab Q4H PRN PO MODERATE PAIN LEVEL 4-6 Last administered on 09/25/18at 14:29; Admin Dose 1 TAB; Start 09/25/18 at 13:00 Oxycodone/ Acetaminophen (Endocet (10/ 325)) 1 tab Q4H PRN PO MODERATE PAIN LEVEL 4-6; Start 09/25/18 at 13:00 NAIMA HOPKINS M.D. Sep 26, 2018 08:35
[2018-09-26] MEDS: SUCRALFATE 1 GM TAB PO SCH ×3 (10:33→18:27)
[2018-09-26] MEDS: APIXABAN 5 MG TABLET PO SCH (10:34)
--- NOTE | 2018-09-26 12:36 | PN ---
Date/Time of Note Date/Time of Note DATE: 09/26/18 TIME: 12:31 Assessment/Plan VTE Prophylaxis Risk score (from Ns)>0 risk: 4 SCD applied (from Ns): Yes Pharmacological prophylaxis: NA/contraindicated Pharm contraindication: bleeding Lines/Catheters IV Catheter Type (from Nrsg): PICC Line Central line still needed: Yes Urinary Cath still in place: No Assessment/Plan Assessment/Plan Assessment: Dysphagia/odynophagia Rule out GERD plus minus opportunistic infection Rule out PUD. EGD 09/22/18 Severe erosive esophagitis- bx negative for fungal organisms.No glandular epithelium, intraepithelial eosinophils or viral cytopathic effect identified. Large hiatal hernia Gastric ulcer, shallow. Not bleeding - bx neg for H. pylroi Normocytic anemia History of ovarian CA post neoadjuvant chemotherapy plus surgical debulking Plan: PPI twice daily/Carafate 1 g 4 times daily- x 6 weeks Repeat EGD in 4-6 weeks to verify ulcer healing Plan diet Avoid NSAIDs Patient appears stable for out-pt management Patient seen in collaboration with Dr. Earl/Jaquelin Subjective: Course reviewed with nursing staff Patient interviewed and examined All labs, imaging and other results reviewed No over night events. Patient is complaining of epigastric pain, denies nausea or vomiting. Tolerating the diet well. Discussed results of EGD with recommendations for bland diet, GERD lifestyle modifications and repeat EGD in 4-6 weeks Patient appears adequate for outpatient management. PHYSICAL EXAMINATION: GENERAL: Well developed, well nourished, obese, alert & oriented x 3, in no acute distress SKIN: No lesions, no stigmata chronic liver disease, no evidence of bleeding diathesis CHEST: Inspection within normal limits. CARDIOVASCULAR: Heart: Regular rate and rhythm RESPIRATORY: Lungs clear to auscultation GASTROINTESTINAL AND LIVER: Abdomen: Soft, moderate epigastric tenderness, mildly distended, dressing in place, no ascites, no guarding, no rebound tenderness, normoactive bowel sounds. Rectal: Deferred. EXTREMITIES: No cyanosis, clubbing or edema. Result Diagram: 09/25/1842709/25/18427 CC: CHAYA EARL MD ; Exam/Review of Systems Exam Vitals Vital Signs Date Temp Pulse Resp B/P (MAP) Pulse Ox O2 O2 Flow FiO2 Time Delivery Rate 09/26/18 98.2 80 19 101/56 98 07:16 (71) 09/23/18 Nasal 2 21:20 Cannula Intake and Output 09/25/18 09/25/18 09/26/18 1515:00 23:00 07:00 IntakeIntake Total 900 ml 400 ml 200 ml BalanceBalance 900 ml 400 ml 200 ml Medications Medication Current Medications Acetaminophen/ Hydrocodone Bitart ([place] (5/325)) 1 tab Q6H PRN PO PAIN LEVEL 6-10 Last administered on 09/12/18at 12:25; Admin Dose 1 TAB; Start 09/11/18 at 17:30 Acetaminophen/ Hydrocodone Bitart ([place] (10/325)) 1 tab Q6H PRN PO PAIN Last administered on 09/26/18at 06:33; Admin Dose 1 TAB; Start 09/11/18 at 17:30 Acetaminophen (Tylenol Tab) 650 mg Q6H PRN PO MILD PAIN(1-3)OR ELEVATED TEMP; Start 09/11/18 at 17:30 Ondansetron HCl (Zofran Inj) 4 mg Q6H PRN IV .NAUSEA/VOMITING Last administered on 09/25/18at 04:32; Admin Dose 4 MG; Start 09/11/18 at 17:00 Zolpidem Tartrate (Ambien) 5 mg HS MAY REPEAT X 1 PRN PO .INSOMNIA; Start 09/11/18 at 17:00 Naloxone HCl (Narcan) 0.2 mg Q2M PRN IV .RESP RATE; Start 09/11/18 at 17:00 Levothyroxine Sodium (Synthroid) 50 mcg BEFORE BREAKFAST PO Last administered on 09/26/18at 06:33; Admin Dose 50 MCG; Start 09/14/18 at 07:00 Sodium Biphosphate/ Sodium Phosphate (Fleet Enema) 133 ml DAILY PRN [place] CONSTIPATION; Start 09/13/18 at 22:00 Bisacodyl (Dulcolax Supp) 10 mg DAILY PRN [place] CONSTIPATION Last administered on 09/14/18at 20:30; Admin Dose 10 MG; Start 09/14/18 at 11:00 Polyethylene Glycol (Miralax) 17 gm DAILY PRN PO CONSTIPATION; Start 09/17/18 at 12:30 Senna (Senokot) 2 tab BID PRN PO CONSTIPATION; Start 09/17/18 at 12:30 Al Hydrox/Mg Hydrox/Simethicone (Mag-Al Plus) 30 ml Q6H PRN PO GASTROINTESTINAL UPSET; Start 09/20/18 at 00:00 Calcium Carbonate (Tums) 500 mg Q4 PRN PO heartburn Last administered on 09/21/18 08:43; Admin Dose 500 MG; Start 09/20/18 at 00:00 Apixaban (Eliquis) 2.5 mg BID PO Last administered on 09/26/18 10:34; Admin Dose 2.5 MG; Start 09/22/18 at 09:00 Sucralfate (Carafate) 1 gm QID PO Last administered on 09/26/18 10:33; Admin Dose 1 GM; Start 09/23/18 at 13:00 Pantoprazole (Protonix Tab) 40 mg BID@0600,1800 PO Last administered on 09/26/18 06:33; Admin Dose 40 MG; Start 09/23/18 at 18:00 Oxycodone/ Acetaminophen (Percocet (5/ 325)) 1 tab Q4H PRN PO MODERATE PAIN LEVEL 4-6 Last administered on 09/25/18at 14:29; Admin Dose 1 TAB; Start 09/25/18 at 13:00 Oxycodone/ Acetaminophen (Endocet (10/ 325)) 1 tab Q4H PRN PO MODERATE PAIN LEVEL 4-6; Start 09/25/18 at 13:00 PHYLICIA STAPLETON NP Sep 26, 2018 12:36
[2018-09-26] MEDS ORDERED: LIDOCAINE/MYLANTA 40 ML BTL PO ONE (13:00)
[2018-09-26] MEDS: OXYCODONE/ACETAMINOPHEN (5/325) TAB PO PRN ×2 (13:29→17:53)
[2018-09-26 15:10] VITALS: BP 119/62; PULSE 82; RESP 19
--- NOTE | 2018-09-26 15:59 | CONS ---
Assessment/Plan Assessment/Plan Assessment/Plan (Daily) 73 yo woman no major PMH presents after ovarian debulking surgery. #Ulcerative esophagitis - Causing severe dysphagia - GI following - EGD 09/22 shows severe ulcerative esophagitis. Images appear to show circular and linear ulcers. - Biopsy negative for fungi or virus - Continue PPI and carafate, outpatient GI followup. #Ovarian cancer- status post debulking surgery (09/11/18) - Pain control per surgery. - Dr Acosta now going to be contacted. #Postoperative ileus-improving, patient is at high risk of ileus after intraperitoneal surgery on high doses of opiate analgesics. - For now continue diet per primary team recommendations - NH enemas and stimulants as needed #Postoperative pain- Agree with opioid analgesia as ordered by surgery. -Continue PT/OT #Hypothyroidism - Patient should continue daily thyroid replacement #Anemia -Monitor, consider transfuse pRBCs for symptomatic anemia or if Hgb drops to <7. #DVT prophylaxis - Cont eliquis 2.5 mg BID (for about 180 days). From internal medicine perspective, patient is medically clear for discharge. We will prescribe PPI, carafate, and eliquis. Pain control per surgery. Consultation Date/Type/Reason Admit Date/Time Sep 11, 2018 at 10:17 Initial Consult Date 09/13/18 Type of Consult Internal Medicine Requesting Provider: VIRGINIA COTE MD Date/Time of Note DATE: 09/26/18 TIME: 15:58 24 HR Interval Summary Free Text/Dictation No acute overnight events. Patient sitting up in chair eating breakfast from home Exam/Review of Systems Exam Vitals Vital Signs Date Temp Pulse Resp B/P (MAP) Pulse Ox O2 O2 Flow FiO2 Time Delivery Rate 09/26/18 97.9 82 19 119/62 96 15:10 (81) 09/23/18 Nasal 2 21:20 Cannula Intake and Output 09/25/18 09/25/18 09/26/18 1414:59 22:59 06:59 IntakeIntake Total 900 ml 400 ml 200 ml BalanceBalance 900 ml 400 ml 200 ml Exam Gen: Obese woman lying in bed, NAD Eyes: PERRL, no icterus HEENT: PERRLA, EOMI Neck: no lymphadenopathy Card: Regular rate and rhythm, no murmurs Pulm: Clear to auscultation bilaterally Abd:. Midline surgical dressing clean/dry/intact. RLQ MARQUEZ drain with scant yellowish serous output. Nontender to light palpation throughout. Ext: R>L knee nodularity and arthritis. Otherwise no edema. Results Result Diagram: 09/25/1842709/25/18427 Medications Medication Current Medications Acetaminophen/ Hydrocodone Bitart ([place] (5/325)) 1 tab Q6H PRN PO PAIN LEVEL 6-10 Last administered on 09/12/18 12:25; Admin Dose 1 TAB; Start 09/11/18 at 17:30 Acetaminophen/ Hydrocodone Bitart ([place] (10/325)) 1 tab Q6H PRN PO PAIN Last administered on 09/26/18at 06:33; Admin Dose 1 TAB; Start 09/11/18 at 17:30 Acetaminophen (Tylenol Tab) 650 mg Q6H PRN PO MILD PAIN(1-3)OR ELEVATED TEMP; Start 09/11/18 at 17:30 Ondansetron HCl (Zofran Inj) 4 mg Q6H PRN IV .NAUSEA/VOMITING Last administered on 09/25/18at 04:32; Admin Dose 4 MG; Start 09/11/18 at 17:00 Zolpidem Tartrate (Ambien) 5 mg HS MAY REPEAT X 1 PRN PO .INSOMNIA; Start 09/11/18 at 17:00 Naloxone HCl (Narcan) 0.2 mg Q2M PRN IV .RESP RATE; Start 09/11/18 at 17:00 Levothyroxine Sodium (Synthroid) 50 mcg BEFORE BREAKFAST PO Last administered on 09/26/18at 06:33; Admin Dose 50 MCG; Start 09/14/18 at 07:00 Sodium Biphosphate/ Sodium Phosphate (Fleet Enema) 133 ml DAILY PRN [place] CONSTIPATION; Start 09/13/18 at 22:00 Bisacodyl (Dulcolax Supp) 10 mg DAILY PRN [place] CONSTIPATION Last administered on 09/14/18at 20:30; Admin Dose 10 MG; Start 09/14/18 at 11:00 Polyethylene Glycol (Miralax) 17 gm DAILY PRN PO CONSTIPATION; Start 09/17/18 at 12:30 Senna (Senokot) 2 tab BID PRN PO CONSTIPATION; Start 09/17/18 at 12:30 Al Hydrox/Mg Hydrox/Simethicone (Mag-Al Plus) 30 ml Q6H PRN PO GASTROINTESTINAL UPSET Last administered on 09/26/18 15:11; Admin Dose 30 ML; Start 09/20/18 at 00:00 Calcium Carbonate (Tums) 500 mg Q4 PRN PO heartburn Last administered on 09/21/18 08:43; Admin Dose 500 MG; Start 09/20/18 at 00:00 Apixaban (Eliquis) 2.5 mg BID PO Last administered on 09/26/18 10:34; Admin Dose 2.5 MG; Start 09/22/18 at 09:00 Sucralfate (Carafate) 1 gm QID PO Last administered on 09/26/18 15:10; Admin Dose 1 GM; Start 09/23/18 at 13:00 Pantoprazole (Protonix Tab) 40 mg BID@0600,1800 PO Last administered on 09/26/18 06:33; Admin Dose 40 MG; Start 09/23/18 at 18:00 Oxycodone/ Acetaminophen (Percocet (5/ 325)) 1 tab Q4H PRN PO MODERATE PAIN LEVEL 4-6 Last administered on 09/26/18 13:29; Admin Dose 1 TAB; Start 09/25/18 at 13:00 Oxycodone/ Acetaminophen (Endocet (10/ 325)) 1 tab Q4H PRN PO MODERATE PAIN LEVEL 4-6; Start 09/25/18 at 13:00 LUCINDA PANDYA MD Sep 26, 2018 15:59
== END 2018-09-26 18:55 | disposition home or self-care (01) | DRG 737 ==
LOC: REC 10:17 → EDSTATUS 12:00 → ICU 19:47 → MS1 09-12 22:20
PROVIDERS: ADMIT Obstetrics & Gynecology Gynecologic Oncology; ATTEND Obstetrics & Gynecology Gynecologic Oncology
PROC: 0UT00ZZ Resection of Right Ovary, Open Approach (ICD-10-PCS; 2018-09-11)
PROC: 0DBU0ZZ Excision of Omentum, Open Approach (ICD-10-PCS; 2018-09-11)
PROC: 0W9G0ZZ Drainage of Peritoneal Cavity, Open Approach (ICD-10-PCS; 2018-09-11)
PROC: 0UT50ZZ Resection of Right Fallopian Tube, Open Approach (ICD-10-PCS; principal; 2018-09-11 12:00)
PROC: 02HV33Z Insertion of Infusion Device into Superior Vena Cava, Percutaneous Approach (ICD-10-PCS; 2018-09-14)
PROC: 0DB58ZX Excision of Esophagus, Via Natural or Artificial Opening Endoscopic, Diagnostic (ICD-10-PCS; 2018-09-22)
PROC: 0DB88ZX Excision of Small Intestine, Via Natural or Artificial Opening Endoscopic, Diagnostic (ICD-10-PCS; 2018-09-22)
PROC: 0DB68ZX Excision of Stomach, Via Natural or Artificial Opening Endoscopic, Diagnostic (ICD-10-PCS; 2018-09-22)
DX: C56.1 Malignant neoplasm of right ovary (principal); K56.7 Ileus, unspecified; R18.0 Malignant ascites; K22.10 Ulcer of esophagus without bleeding; C78.6 Secondary malignant neoplasm of retroperitoneum and peritoneum; C79.89 Secondary malignant neoplasm of other specified sites; C78.7 Secondary malignant neoplasm of liver and intrahepatic bile duct; C57.01 Malignant neoplasm of right fallopian tube; D64.9 Anemia, unspecified; E03.9 Hypothyroidism, unspecified; E66.9 Obesity, unspecified; G89.18 Other acute postprocedural pain; K44.9 Diaphragmatic hernia without obstruction or gangrene; K25.9 Gastric ulcer, unspecified as acute or chronic, without hemorrhage or perforation; M19.90 Unspecified osteoarthritis, unspecified site; R13.10 Dysphagia, unspecified; Z68.33 Body mass index [BMI] 33.0-33.9, adult
CPT/HCPCS: 36569; 71045; 74018; 76937; 80048; 80053; 81001; 83735; 84100; 85025; 85610; 85730; 86304; 86850; 86900; 86901; 86920; 87086; 88305; 88313; 88331; 93971; 97116; 97162; 97530; C9113; J0360; J0690; J1170; J1200; J2060; J2250; J2274; J2370; J2405; J2710; J2765; J2795; J3010; J3475; J3480; P9045; P9047

== ENCOUNTER 2018-11-12 17:23 | Emergency (ER) | payer BC ==
[~2018-11-12] VITALS: Ht 162.6 cm; Wt 90.0 kg
[~2018-11-12 17:23] MED LIST changes: -ALBUMIN HUMAN 25% 100 ML INJ ONE; -ALBUMIN HUMAN 5% 250 ML INJ ONE; -CEFAZOLIN 1 GM INJ ONE; -GLYCOPYRROLATE 0.4 MG INJ ONE; +LEVO50TA7 PO; -LIDOCAINE 2% (SDV) 5 ML INJ ONE; -NEOSTIGMINE 10 MG INJ ONE; -PROPOFOL 200 MG INJ ONE; -ROCURONIUM 50 MG INJ ONE; -SUCCINYLCHOLINE CHLORIDE 100 MG/5 ML SYG IV ONE
[2018-11-12 17:30] VITALS: Ht 162.6 cm; Wt 90.0 kg
--- NOTE | 2018-11-12 17:50 | ERD ---
ER Documentation Chief Complaint Chief Complaint BIB RA FOR EVAL OF ALLERGIC REACTION TO CHEMO AGENT HPI This is a 73-year-old female with a history of ovarian cancer, who presents for a possible allergic reaction. The patient was receiving chemo, which she has received before, and during the episode, she became shaky, and felt itchy, she did not actually break into a rash. She felt her throat swelling, had no episodes of hypoxia. She was brought in by EMS, she was given Solu-Medrol, Benadryl, and Ativan. She had no vomiting, she did not require epinephrine. ROS All systems reviewed and are negative except as per history of present illness. Medications Home Meds Reported Medications Latanoprost (Latanoprost) 2.5 Ml Drops, 1 DROP BOTH EYES QHS, #1 BOTTLE 11/12/18 Lorazepam* (Lorazepam*) 0.5 Mg Tablet, 0.5 MG PO HS PRN for ANXIETY, TAB 11/12/18 Alendronate Sodium* (Fosamax*) 70 Mg Tablet, 70 MG PO Q SAT, #4 TAB 11/12/18 Meloxicam* (Mobic*) 15 Mg Tablet, 15 MG PO DAILY, #30 TAB 11/12/18 Pantoprazole* (Pantoprazole*) 40 Mg Tablet.dr, 40 MG PO AC BREAKFAST DINNER, TAB 11/12/18 Levothyroxine Sodium* (Levothyroxine Sodium*) 50 Mcg Tablet, 50 MCG PO BEFORE BREAKFAST, #30 TAB 09/11/18 Allergies Allergies: Coded Allergies: lidocaine (Verified Allergy, Intermediate, THROAT ITCHY, 11/12/18) PER PT & RELATIVE PMhx/Soc History of Surgery: Yes (CHOLECYSTECTOMY OPEN ) Anesthesia Reaction: No Hx Neurological Disorder: No Hx Respiratory Disorders: No Hx Cardiac Disorders: No Hx Psychiatric Problems: No Hx Miscellaneous Medical Probl: Yes (Hypothyroidism, obesity) Hx Alcohol Use: No Hx Substance Use: No Hx Tobacco Use: No Physical Exam Vitals Vital Signs Date Temp Pulse Resp B/P (MAP) Pulse Ox O2 O2 Flow FiO2 Time Delivery Rate 11/12/18 97.2 112 18 122/62 98 17:30 (82) Physical Exam Const: No acute distress, well-developed well-nourished, 73-year-old female who appears her stated age Head: Atraumatic Eyes: Normal Conjunctiva ENT: Normal External Ears, Nose and Mouth. Throat is clear uvula is midline Neck: Full range of motion. No meningismus. Resp: Clear to auscultation bilaterally, no wheezes rales or rhonchi Cardio: Regular rate and rhythm, no murmurs Abd: Soft, non tender, non distended. Normal bowel sounds Skin: No petechiae or rashes Back: No midline or flank tenderness Ext: No cyanosis, or edema Neur: Awake and alert Psych: Normal Mood and Affect Results 24 hrs Current Medications Medications Dose Sig/Myke Start Time Status Last (Trade) Ordered Route PRN Stop Time Admin Dose Reason Admin Famotidine 20 mg ONCE ONCE 11/12/18 DC (Pepcid) PO 18:00 11/12/18 18:01 Procedures/MDM This is a 73-year-old female presents for evaluation of a possible allergic reaction. On exam, the patient is afebrile and nontoxic-appearing, she had no notable rashes, she had no signs or symptoms of anaphylaxis. Is not clear she specifically did have an allergic reaction, however I did recommend that she be treated for one, given the possibility, she may have had a side effect of the medication itself that was not actually allergic. Patient was monitored in the ED for period of time, she had no rebound symptoms, and at discharge she was in no distress. EKG: Rate/Rhythm: Normal Sinus Rhythm QRS, ST, T-waves: No changes consistent w/ acute ischemia Impression: No evidence of ischemia or arrhythmia Departure Diagnosis: Primary Impression: Allergic reaction Encounter type: initial encounter Qualified Codes: T78.40XA - Allergy, unspecified, initial encounter Condition: Stable LEILA GUAMAN MD November 12, 2018 17:50
[2018-11-12] MEDS ORDERED: FAMOTIDINE 20 MG TAB PO ONE (18:00)
[2018-11-12] MEDS ORDERED: PANT40TA4 PO (18:37)
[2018-11-12] MEDS ORDERED: ALEN70TA5 PO (18:38)
[2018-11-12] MEDS ORDERED: MELO15TA30 PO (18:38)
[2018-11-12] MEDS ORDERED: LORA0.5T PO (18:39)
[2018-11-12] MEDS ORDERED: LATA2.5D2 BOTH EYES (18:40)
[2018-11-12 19:27] VITALS: BP 110/66; PULSE 81; RESP 15
== END 2018-11-12 19:27 | disposition home or self-care (01) ==
LOC: E/R 17:23
DX: T78.40XA Allergy, unspecified, initial encounter (principal); E03.9 Hypothyroidism, unspecified; E66.9 Obesity, unspecified; Z68.34 Body mass index [BMI] 34.0-34.9, adult; Z85.43 Personal history of malignant neoplasm of ovary
CPT/HCPCS: 93005; Z7502